=== PATIENT | female | born 1940 | race Caucasian/White ===

== ENCOUNTER 2019-10-01 09:12 | Inpatient (IN) ==
[2019-10-01] MEDS ORDERED: 0.9 % SODIUM CHLORIDE 500 ML IV ONE ×2 (10:15→12:04)
--- NOTE | 2019-10-01 10:19 | Emergency Department Note ---
Abdominal Pain HPI - General Chief Complaint: Abdominal Pain Stated Complaint: Abd pain Time Seen by Provider: 10/01/19 10:02 Source: patient, family Mode of arrival: wheelchair Limitations: no limitations - History of Present Illness HPI Narrative: 79-year-old female patient referred to the emergency department from same-day surgery for. Patient was in same-day surgery for an esophageal dilatation. During her intake she mentioned to the interface control officer that she was having worsening abdominal pain. The GI specialist went ahead with the esophageal dilatation and then referred her to the emergency department for further work- up. Upon arrival, patient complains of 4-5 days of worsening fulminant abdominal pain. She describes this as a "burning". She admits to a decreased appetite and "I have not eaten very much". She has an extensive intra-abdominal history of total colectomy associated with ulcerative colitis back in 1969. She currently has a colostomy bag. She admits to mild nausea but no vomiting. She denies systemic fevers, sweats, chills. She denies any runny nose, sinus congestion, or cough. She denies any shortness of breath. She denies any retrosternal chest pain or palpitations. She denies any dysuria or hematuria. She admits to generalized malaise. She denies focal weakness. A review of her active problem list shows small bowel obstruction in the septal scalp laceration. Patient medications were reviewed noting history of hypertension. - Related Data Home Medications Medication Instructions Recorded Confirmed Bisoprolol [Zebeta] 2.5 mg PO DAILY 10/01/19 10/01/19 Multivit with Calcium,Iron,Min 1 each PO DAILY 10/01/19 10/01/19 [One Daily Women's] Potassium 99 mg PO DAILY 10/01/19 10/01/19 amLODIPine [Norvasc] 5 mg PO DAILY 10/01/19 10/01/19 Previous Rx's Medication Instructions Recorded Magnesium Oxide 400 mg PO BID #30 tab 03/02/16 Allergies Allergy/AdvReac Type Severity Reaction Status Date / Time No Known Drug Allergies Allergy Verified 10/01/19 09:12 Review of Systems All systems ED: reviewed and negative except as stated. Abdominal Pain PMH - Past Medical History Surgical history ED: Reports: colectomy (1969) - Social History Smoking status: Never smoker Alcohol use: Reports: Occasionally Drug use: Reports: none Physical Exam Limitations: no limitations General appearance: alert, anxious, in no apparent distress (No apparent respiratory distress.), other (Patient does appear uncomfortable in the [facility] room [facility].) Head: atraumatic, normocephalic Eye: Present: PERRL, EOMI. Absent: scleral icterus ENT: Present: normal oropharynx, mucous membranes moist Neck: Present: trachea midline. Absent: lymphadenopathy, thyromegaly Chest: Present: symmetric chest wall rise Respiratory: Present: normal lung sounds bilaterally. Absent: respiratory dis tress, rales/crackles, wheezes, stridor, accessory muscle use, prolonged expiratory phase Cardiovascular: Present: regular rate, normal rhythm. Absent: systolic murmur, diastolic murmur Abdominal: Present: soft, tenderness (Globally tender throughout. Patient comes to tears with palpation around her umbilicus.), hypoactive bowel sounds, scar (Multiple surgical scars noted throughout the abdomen.), other (Colostomy bag to the left lower quadrant with dark-colored stool.). Absent: distention, guarding, rebound, rigidity, organomegaly, mass Abdominal tenderness: Present: diffuse, moderate Extremities: Present: normal inspection, full ROM, normal capillary refill. Absent: pedal edema Neurological: Present: alert, oriented X3 Psychiatric: Present: anxious, tearful Skin: Present: warm, dry Course Course Narrative: Patient was brought into the emergency department and a history and physical exam was performed. Saline lock is already been established and day surgery. Laboratory studies were drawn. Patient has questionable history of renal dysfunction so a chemistry panel was obtained prior to CT scan. CT scan of her abdomen and pelvis with contrast was ordered pending the results of her BUN/creatinine. A review of her laboratory studies show the following: CBC RBC 5.38, hemoglobin 16.1, hematocrit 47.9, WBC 8.9. CMP CO2 19, anion gap 18, BUN 105, creatinine 2.4, glucose 117, calcium 10.5, AST 48, ALT 52, all others normal limits. Lipase 87. Urinalysis showing clear yellow urine with specific gravity 1.020 and pH 5.0. Positive leukocyte Estrace, WBCs, few bacteria, and casts. C&S was indicated. /Pelvic CT scan read by the radiologist as previous surgery consistent with colectomy. No intra-abdominal abscess or focal abnormality. Radiologist did mention severe degenerative joint disease left hip. He mentions avascular necrosis is not excluded. After reviewing all the data and noting the patient's worsening kidney function. She was given 500 mL of normal saline as a bolus. Although no definitive cause for abdominal pain was found on CT scan due to her worsening renal functions and ongoing abdominal pain it seems prudent to consult with the hospitalist service about possible admission for ongoing evaluation/management. I reached out to both the patient's doctor of naturopathic medicine (Dr. Caicedo) and the hospitalist (Dr. Amaya) about the patient's need for admission. At this time it is decided the patient is likely suffering from some form of volume depletion and would benefit from IV rehydration and closely watching her renal functions. Patient is going to be admitted under the care of Dr. Amaya with Dr. Caicedo consulting. Patient remained hemodynamically stable throughout her entire time the emergency department is being discharged with the following plan. Vital Signs Temperature 96.8 F L 10/01/19 09:12 Pulse Rate 86 10/01/19 09:12 Respiratory Rate 16 10/01/19 09:12 Blood Pressure 110/70 10/01/19 09:12 Pulse Oximetry (%) 97 10/01/19 09:12 Temperature 96.8 F L 10/01/19 09:12 Pulse Rate 57 L 10/01/19 10:17 Respiratory Rate 16 10/01/19 09:12 Blood Pressure 133/59 10/01/19 11:31 Pulse Oximetry (%) 94 10/01/19 10:17 Abdominal Pain - Lab Data Lab results reviewed: Yes I reviewed the patient's lab results. Result diagrams: 10/01/19 10:36 10/01/19 10:36 Lab Results 10/01/19 10/01/19 10/01/19 Range/Units 10:36 10:36 10:36 WBC 8.9 (4.5-11.0) K/mcL RBC 5.38 H (4.00-5.20) M/mcL Hgb 16.1 H (12.0-15.0) g/dL Hct 47.9 (36.0-48.0) % POC Hct 49.0 H (36.0-48.0) % MCV 89.0 (80.0-100.0) fL MCH 29.8 (26.0-34.0) pg MCHC 33.5 (31.0-36.0) g/dL RDW 12.8 (11.5-14.5) % Plt Count 311 (140-440) K/mcL MPV 6.9 L (7.4-10.4) fL Gran % 77.5 (38.0-78.0) % Lymph % (Auto) 15.0 L (15.5-49.0) % [place] % (Auto) 6.0 (1.0-12.0) % Eos % (Auto) 0.6 (0.0-7.0) % Baso % (Auto) 0.9 (0.0-2.0) % Gran # 6.9 (1.8-8.0) K/mcL Lymph # (Auto) 1.3 L (1.5-4.8) K/mcL [place] # (Auto) 0.5 (0.1-0.9) K/mcL Eos # (Auto) 0.1 (0.0-0.7) K/mcL Baso # (Auto) 0.1 (0.0-0.3) K/mcL VBG Lactic Acid (0.5-2.0) mmol/L POC Sodium 135 (133-145) mmol/L Sodium 135 (133-145) mmol/L POC Potassium 4.2 (3.3-5.1) mmol/L Potassium 4.2 (3.3-5.1) mmol/L POC Chloride 102 (96-108) mmol/L Chloride 98 (96-108) mmol/L Carbon Dioxide 19 L (22-30) mmol/L POC Total CO2 19 L (22-30) mmol/L Anion Gap 18.0 H (8-16) POC BUN 112 H* (8-23) mg/dl BUN 105 H* (8-23) mg/dl Creatinine 2.4 H (0.6-1.1) mg/dl POC Creatinine 2.4 H (0.6-1.1) mg/dl GFR Calculation 18 Glucose 117 H (70-105) mg/dL POC Glucose 112 H (70-105) mg/dL Calcium 10.5 H (8.6-10.4) mg/dl POC WB Ioniz Calcium 1.25 (1.16-1.32) mmol/L Total Bilirubin 0.4 (0.0-1.0) mg/dL AST 48 H (0-37) U/l ALT 52 H (0-40) U/l Alkaline Phosphatase 113 (39-117) U/L Total Protein 8.1 (5.9-8.4) gm/dL Albumin 4.6 (3.2-5.2) gm/dL Globulin 3.5 (2.2-3.7) gm/dL Albumin/Globulin Ratio 1.3 (1.0-2.3) Lipase 87 H (7-60) U/L Urine Color Yellow Urine Appearance Clear Urine pH 5.0 (5.0-9.0) Ur Specific [place] 1.020 (1.000-1.035) Urine Protein Neg (NEG) mg/dL Urine Glucose (UA) Negative (NEG) mg/dL Urine Ketones Neg (NEG) mg/dL Urine Occult Blood Neg (<0.03) mg/dL Urine Nitrate Neg (NEG) Urine Bilirubin Neg (NEG) mg/dL Urine Urobilinogen Neg (NEG) mg/dL Ur Leukocyte Esterase 250 A (NEG) /uL Urine RBC 1 (0-1) /hpf Urine WBC 30 H (0-4) /hpf Ur Squamous Epith Cells 1 (0-4) /hpf Ur Transition Epith Cell 1 (0-2) /hpf Urine Bacteria Few A (0) /hpf Hyaline Casts 9 H (0-2) /lpf Urine Mucus Few (0) /hpf Ur Culture Indicated? Yes 10/01/19 Range/Units 12:25 WBC (4.5-11.0) K/mcL RBC (4.00-5.20) M/mcL Hgb (12.0-15.0) g/dL Hct (36.0-48.0) % POC Hct (36.0-48.0) % MCV (80.0-100.0) fL MCH (26.0-34.0) pg MCHC (31.0-36.0) g/dL RDW (11.5-14.5) % Plt Count (140-440) K/mcL MPV (7.4-10.4) fL Gran % (38.0-78.0) % Lymph % (Auto) (15.5-49.0) % [place] % (Auto) (1.0-12.0) % Eos % (Auto) (0.0-7.0) % Baso % (Auto) (0.0-2.0) % Gran # (1.8-8.0) K/mcL Lymph # (Auto) (1.5-4.8) K/mcL [place] # (Auto) (0.1-0.9) K/mcL Eos # (Auto) (0.0-0.7) K/mcL Baso # (Auto) (0.0-0.3) K/mcL VBG Lactic Acid 1.2 (0.5-2.0) mmol/L POC Sodium (133-145) mmol/L Sodium (133-145) mmol/L POC Potassium (3.3-5.1) mmol/L Potassium (3.3-5.1) mmol/L POC Chloride (96-108) mmol/L Chloride (96-108) mmol/L Carbon Dioxide (22-30) mmol/L POC Total CO2 (22-30) mmol/L Anion Gap (8-16) POC BUN (8-23) mg/dl BUN (8-23) mg/dl Creatinine (0.6-1.1) mg/dl POC Creatinine (0.6-1.1) mg/dl GFR Calculation Glucose (70-105) mg/dL POC Glucose (70-105) mg/dL Calcium (8.6-10.4) mg/dl POC WB Ioniz Calcium (1.16-1.32) mmol/L Total Bilirubin (0.0-1.0) mg/dL AST (0-37) U/l ALT (0-40) U/l Alkaline Phosphatase (39-117) U/L Total Protein (5.9-8.4) gm/dL Albumin (3.2-5.2) gm/dL Globulin (2.2-3.7) gm/dL Albumin/Globulin Ratio (1.0-2.3) Lipase (7-60) U/L Urine Color Urine Appearance Urine pH (5.0-9.0) Ur Specific [place] (1.000-1.035) Urine Protein (NEG) mg/dL Urine Glucose (UA) (NEG) mg/dL Urine Ketones (NEG) mg/dL Urine Occult Blood (<0.03) mg/dL Urine Nitrate (NEG) Urine Bilirubin (NEG) mg/dL Urine Urobilinogen (NEG) mg/dL Ur Leukocyte Esterase (NEG) /uL Urine RBC (0-1) /hpf Urine WBC (0-4) /hpf Ur Squamous Epith Cells (0-4) /hpf Ur Transition Epith Cell (0-2) /hpf Urine Bacteria (0) /hpf Hyaline Casts (0-2) /lpf Urine Mucus (0) /hpf Ur Culture Indicated? - Radiology Data Radiology results reviewed: Yes I reviewed the patient's radiology results. Ordering Physician: Nasim Hanna D.O. Date of Service: 10/01/19 Procedure(s): CT abdomen pelvis wo con Accession Number(s): [id number] CLINICAL INFORMATION: Abdominal pain COMPARISON: None. TECHNIQUE: Axial images were obtained through the abdomen and pelvis. Sagittally and coronally reformatted images. Oral contrast material was administered FINDINGS: Lung bases:Negative. No focal pulmonary parenchymal infiltrate or mass. There is no bronchiectasis. There is no pleural fluid or pericardial fluid Liver:Liver is negative to the limits of noncontrast enhanced examination. Liver contour is smooth. There is no ascites. Gallbladder, billary:Surgical clips in the gallbladder fossa. No dilated bile ducts Spleen:No splenomegaly Pancreas:No pancreatic mass. No peripancreatic abnormality Adrenal glands:Negative Kidneys, ureters, bladder:No detectable renal mass. Kidneys are atrophic bilaterally. There is no hydronephrosis. No calculi. No hydroureter. No bladder stone. Gastrointestinal:Findings are consistent with previous colectomy. 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 There is a left lower quadrant ostomy. No mechanical small bowel obstruction. Vascular:No abdominal aortic aneurysm. There is mild atherosclerotic calcification Lymphatic:No para-aortic retroperitoneal adenopathy. No mesenteric adenopathy Mesentery, peritoneum, retroperitoneum:There are multiple surgical clips from previous colectomy. No free intraperitoneal fluid. No intra-abdominal abscess. There is no pneumoperitoneum Reproductive:Uterus is probably present and atrophic although not well visualized. No adnexal mass Musculoskeletal:No lumbar compression fracture. Sacrum and pelvis are negative. Previous right total hip arthroplasty. There is degenerative disease left hip. There is marked joint space narrowing. There is sclerosis in the left femoral head. This is probably a subchondral sclerotic and cystic change. Avascular necrosis is not excluded. IMPRESSION: 1. Previous surgery consistent with colectomy 2. No intra-abdominal abscess. No focal abnormality 3. Severe degenerative joint disease and left hip. Avascular necrosis is not excluded Interpreted and Authenticated by: Chidi Mcgregor 10/01/19 Disposition Pt seen by [employer] HOCKEY COACH/PA only: Yes Clinical Impression: Abdominal pain Qualifiers: Abdominal location: generalized Qualified Code(s): R10.84 - Generalized abdominal pain Acute on chronic renal failure Qualifiers: Acute renal failure type: unspecified Chronic kidney disease stage: stage 4 (severe) Qualified Code(s): N17.9 - Acute kidney failure, unspecified; N18.4 - Chronic kidney disease, stage 4 (severe) Disposition: Xfer As Outpt/Obs ([facility]) Condition: Good Additional Instructions: Patient is being admitted to the hospital under the care of the hospitalist (Dr. Amaya) with the doctor of naturopathic medicine (Dr. Caicedo) consulting. All further treatment decisions to be carried out by the specialist. Referrals: Opal Martin MD [Primary Care Provider] - Time of Disposition: 13:38
[2019-10-01 10:47] LABS: POC Blood Urea Nitrogen 112 mg/dl (8-23); POC CO2 19 mmol/L (22-30); POC Calcium, Ionized 1.25 mmol/L (1.16-1.32); POC Chloride 102 mmol/L (96-108); POC Creatinine 2.4 mg/dl (0.6-1.1); POC Glucose, Random 112 mg/dL (70-105); POC Potassium 4.2 mmol/L (3.3-5.1); POC Sodium 135 mmol/L (133-145)
[2019-10-01 11:09] LABS: Basophils # (Auto) 0.1 K/mcL (0.0-0.3); Basophils % (Auto) 0.9 % (0.0-2.0); Eosinophils # (Auto) 0.1 K/mcL (0.0-0.7); Eosinophils % (Auto) 0.6 % (0.0-7.0); Granulocytes % (Auto) 77.5 % (38.0-78.0); Hematocrit 47.9 % (36.0-48.0); Hemoglobin 16.1 g/dL (12.0-15.0); Lymphocytes # (Auto) 1.3 K/mcL (1.5-4.8); Mean Corpuscular HGB Conc 33.5 g/dL (31.0-36.0); Mean Platelet Volume 6.9 fL (7.4-10.4); Monocytes # (Auto) 0.5 K/mcL (0.1-0.9); Platelet Count 311 K/mcL (140-440); RBC 5.38 M/mcL (4.00-5.20); Red Cell Distribution Width 12.8 % (11.5-14.5); WBC 8.9 K/mcL (4.5-11.0)
[2019-10-01 11:20] LABS: Appearance,Urine CLEAR; Bacteria,Urine FEW /hpf (0); Bilirubin,Urine NEG (NEG); Color,Urine YELLOW; Culture Indicated,Urine YES; Glucose,Urine (UA) NEGATIVE (NEG); Ketones,Urine NEG (NEG); Leukocyte Esterase,Urine 250 /uL (NEG); Mucus,Urine FEW /hpf (0); Nitrate,Urine NEG (NEG); Protein,Urine NEG (NEG); Urine Blood NEG mg/dL (<0.03); Urine Hyaline Cast 9 /lpf (0-2); Urine RBC 1 /hpf (0-1); Urine Squamous Epithelial Cell 1 /hpf (0-4); Urine Transitional Epi Cells 1 /hpf (0-2); Urine WBC 30 /hpf (0-4); Urobilinogen,Urine NEG (NEG)
[2019-10-01 11:28] LABS: ALT/SGPT 52 U/l (0-40); AST/SGOT 48 U/l (0-37); Albumin 4.6 gm/dL (3.2-5.2); Albumin/Globulin Ratio 1.3 (1.0-2.3); Alkaline Phosphatase 113 U/L (39-117); Bilirubin,Total 0.4 mg/dL (0.0-1.0); Calcium 10.5 mg/dl (8.6-10.4); Carbon Dioxide 19 mmol/L (22-30); Chloride 98 mmol/L (96-108); Globulin 3.5 gm/dL (2.2-3.7); Glomerular Filtration Rate 18; Glucose 117 mg/dL (70-105)
[2019-10-01 11:43] LABS: Blood Urea Nitrogen 105 mg/dl (8-23)
--- NOTE | 2019-10-01 12:09 | Cat Scan Report ---
CLINICAL INFORMATION: Abdominal pain COMPARISON: None. TECHNIQUE: Axial images were obtained through the abdomen and pelvis. Sagittally and coronally reformatted images. Oral contrast material was administered FINDINGS: Lung bases:Negative. No focal pulmonary parenchymal infiltrate or mass. There is no bronchiectasis. There is no pleural fluid or pericardial fluid Liver:Liver is negative to the limits of noncontrast enhanced examination. Liver contour is smooth. There is no ascites. Gallbladder, billary:Surgical clips in the gallbladder fossa. No dilated bile ducts Spleen:No splenomegaly Pancreas:No pancreatic mass. No peripancreatic abnormality Adrenal glands:Negative Kidneys, ureters, bladder:No detectable renal mass. Kidneys are atrophic bilaterally. There is no hydronephrosis. No calculi. No hydroureter. No bladder stone. Gastrointestinal:Findings are consistent with previous colectomy. 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 There is a left lower quadrant ostomy. No mechanical small bowel obstruction. Vascular:No abdominal aortic aneurysm. There is mild atherosclerotic calcification Lymphatic:No para-aortic retroperitoneal adenopathy. No mesenteric adenopathy Mesentery, peritoneum, retroperitoneum:There are multiple surgical clips from previous colectomy. No free intraperitoneal fluid. No intra-abdominal abscess. There is no pneumoperitoneum Reproductive:Uterus is probably present and atrophic although not well visualized. No adnexal mass Musculoskeletal:No lumbar compression fracture. Sacrum and pelvis are negative. Previous right total hip arthroplasty. There is degenerative disease left hip. There is marked joint space narrowing. There is sclerosis in the left femoral head. This is probably a subchondral sclerotic and cystic change. Avascular necrosis is not excluded. IMPRESSION: 1. Previous surgery consistent with colectomy 2. No intra-abdominal abscess. No focal abnormality 3. Severe degenerative joint disease and left hip. Avascular necrosis is not excluded The exam was performed using radiation dose optimization techniques including, but not limited to, automated exposure control, adjustment of the mA and/or kV according to patient size and use of iterative reconstruction technique. Interpreted and Authenticated by: Chidi Mcgregor 10/01/19
--- NOTE | 2019-10-01 13:39 | Internal Med History&Physical ---
Medical - H&P: [facility] Patient information: Note initiated : 10/01/19 at 1:37 pm Service Date, if different from initiated Date: [] Patient: Lesvia Eduardo a 79 y/o F admitted on for Abd pain. Chief Complaint: [] Chief complaint: Weakness/abdominal discomfort History of present illness: Ms. Eduardo is a 79 year old F with history of prior abdominal surgery/colostomy since . She was referred to the ER after esophageal dilatation today due to concerns of abdominal discomfort and pain. As per history patient has had progressive weakness secondary to upper respiratory symptoms over the last 1 week. She is having dysphagia to solids especially meats and subsequently underwent upper endoscopy today. Postprocedure she was noted to have increasing abdominal discomfort. Initial work-up in the ER was essentially unremarkable with a CT abdomen however she was found to have a BUN of over 112 and creatinine 2.4 up 50% from baseline. Her furnace setter Dr. Caicedo was consulted and recomm ended hospitalization for further evaluation and management. Significant hemoconcentration was noted with a hemoglobin of 16.1, and UA revealing 30 WBCs. Subsequently hospitalist service was consulted. At the time evaluation patient is alert and oriented. She was able to endorse history as above. She is hard of hearing and uses a hearing aid. She denies NSAID intake. She is fairly independent and active at baseline and lives with her Jeronimo. She denies recent weight loss but endorses to cough and cold symptoms for a week and a half. She denies fever chills diarrhea, dysuria, nausea, vomiting or changes in medications. She also saw her primary care physician Opal Francisco last week with URI symptoms. She is currently not on any diuretics. She does endorse that she has not been eating and drinking much due to upper respiratory symptoms Review of systems A 10 point review system was performed and is negative except for ones cussed above Medical - H&P: [facility] Medical history: Neuropathy. Chronic kidney disease stage IV managed by Dr. Caicedo, Special Population Paraprofessional. History of nephrolithiasis. Pernicious anemia. Osteoporosis. SURGICAL HISTORY: Hysterectomy. Hernia and ovarian cyst in 1988. Ostomy in 1979. Fistula requiring ostomy 1992. Gallbladder surgery 2005. FAMILY HISTORY: brother with multiple sclerosis. SOCIAL HISTORY: to [place]. 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 Occasional alcohol, no history of tobacco or substance abuse. Medical - H&P: Meds Home Medications Medication Instructions Recorded Confirmed Type Bisoprolol [Zebeta] 5 mg PO DAILY 10/01/19 10/01/19 History Fludrocortisone [Florinef] 0.1 mg PO DAILY 10/01/19 10/01/19 History Magnesium Oxide 800 mg PO BID 10/01/19 10/01/19 History Multivit with Calcium,Iron,Min 1 each PO DAILY 10/01/19 10/01/19 History [One Daily Women's] Potassium 99 mg PO DAILY 10/01/19 10/01/19 History amLODIPine [Norvasc] 5 mg PO DAILY 10/01/19 10/01/19 History Allergies Allergy/AdvReac Type Severity Reaction Status Date / Time No Known Drug Allergies Allergy Verified 10/01/19 09:12 Medical - H&P: Exam - Constitutional Vitals: Temp Pulse Resp BP Pulse Ox 96.8 F L 57 L 16 133/59 94 10/01/19 09:12 10/01/19 10:17 10/01/19 09:12 10/01/19 11:31 10/01/19 10:17 Medical - H&P: Reslt - Labs CBC & Chem 7: 10/01/19 10:36 10/01/19 10:36 Labs: Short CBC 10/01/19 Range/Units 10:36 WBC 8.9 (4.5-11.0) K/mcL Hgb 16.1 H (12.0-15.0) g/dL Hct 47.9 (36.0-48.0) % Plt Count 311 (140-440) K/mcL BMP 10/01/19 10:36 Sodium 135 Potassium 4.2 Chloride 98 Carbon Dioxide 19 L BUN 105 H* Creatinine 2.4 H Glucose 117 H Calcium 10.5 H Liver Function 10/01/19 Range/Units 10:36 Total Bilirubin 0.4 (0.0-1.0) mg/dL AST 48 H (0-37) U/l ALT 52 H (0-40) U/l Alkaline Phosphatase 113 (39-117) U/L Albumin 4.6 (3.2-5.2) gm/dL Urine 10/01/19 Range/Units 10:36 Urine Color Yellow Urine Appearance Clear Urine pH 5.0 (5.0-9.0) Ur Specific [address] 1.020 (1.000-1.035) Urine Protein Neg (NEG) mg/dL Urine Glucose (UA) Negative (NEG) mg/dL Medical - H&P: A/P (1) Uremia of renal origin Current visit: Yes Status: Acute * Uremia secondary to volume depletion with a BUN of 110. Nephrology consulted * Progression of chronic kidney disease. Baseline creatinine 1.6 current creatinine 2.4. Likely secondary to volume depletion. Nephrology consulted * Uncomplicated UTI-initiate antibiotic coverage. Negative abdominal CT for pyelonephritis or obstructive uropathy. * Volume depletion secondary to poor p.o. intake continue crystalloids. * Hemoconcentration secondary to volume depletion. Continue crystalloids * History of hypertension continue home dose amlodipine/bisoprolol * Full code * Prophylaxis heparin Plan * Inpatient admission, anticipate a minimum of 2 midnight hospitalization in the second dose uremia/NILA/UTI * Uremia and acute kidney injury management per nephrology * Aggressive volume resuscitation * Colostomy care * Resume home medications * PT OT nutrition support
[2019-10-01] MEDS ORDERED: MELATONIN 3 MG TABLET PO PRN (15:06)
[2019-10-01] MEDS ORDERED: ONDANSETRON 4 MG/2 ML VIAL IV PRN (15:06)
[2019-10-01] MEDS ORDERED: BISACODYL 10 MG SUPP.RECT PR PRN (15:06)
[2019-10-01] MEDS ORDERED: ACETAMINOPHEN 325 MG TABLET PO PRN (15:06)
[2019-10-01] MEDS ORDERED: POLYETHYLENE GLYCOL 3350 17 GM PACKET PO PRN (15:06)
[2019-10-01] MEDS ORDERED: ONDANSETRON 4 MG ODT TABLET SL PRN (15:06)
[2019-10-01] MEDS ORDERED: ACETAMINOPHEN 650 MG/65 ML BOTTLE IV PRN (15:06)
[2019-10-01] MEDS: 0.9 % SODIUM CHLORIDE 1,000 ML IV SCH (15:08)
[2019-10-01] MEDS: 0.9 % SODIUM CHLORIDE 10 ML SYRINGE IV SCH ×2 (15:13→20:56)
[2019-10-01] MEDS: FLUDROCORTISONE 0.1 MG TABLET PO SCH (20:55)
[2019-10-01] MEDS: HEPARIN 5,000 UNIT/ML VIAL SQ SCH (20:55)
[2019-10-01] MEDS: MAGNESIUM OXIDE 400 MG TABLET PO SCH (20:55)
[2019-10-01] MEDS: DOCUSATE SODIUM 100 MG CAPSULE PO SCH (20:56)
[2019-10-01] MEDS ORDERED: SENNOSIDES/DOCUSATE SODIUM 1 TAB TABLET PO SCH (21:00)
[2019-10-02] MEDS: 0.9 % SODIUM CHLORIDE 1,000 ML IV SCH ×2 (00:46→11:58)
[2019-10-02] MEDS: 0.9 % SODIUM CHLORIDE 10 ML SYRINGE IV SCH ×2 (05:23→12:50)
[2019-10-02 06:31] LABS: Hematocrit 39.3 % (36.0-48.0); Mean Cell Volume 89.2 fL (80.0-100.0); Mean Corpuscular HGB Conc 33.2 g/dL (31.0-36.0); Mean Platelet Volume 6.9 fL (7.4-10.4); Platelet Count 241 K/mcL (140-440); Red Cell Distribution Width 12.4 % (11.5-14.5); WBC 5.3 K/mcL (4.5-11.0)
[2019-10-02 06:58] LABS: ALT/SGPT 35 U/l (0-40); AST/SGOT 34 U/l (0-37); Albumin 3.2 gm/dL (3.2-5.2); Albumin/Globulin Ratio 1.1 (1.0-2.3); Alkaline Phosphatase 84 U/L (39-117); Bilirubin,Direct < 0.2 mg/dL (0.0-0.3); Bilirubin,Total 0.5 mg/dL (0.0-1.0); Calcium 9.3 mg/dl (8.6-10.4); Carbon Dioxide 18 mmol/L (22-30); Chloride 100 mmol/L (96-108); Globulin 2.8 gm/dL (2.2-3.7); Glucose 91 mg/dL (70-105); Lactate Dehydrogenase 225 U/L (94-250); Phosphorous 4.2 mg/dL (2.7-4.5); Triglycerides 89 mg/dl (<150); Uric Acid 9.1 mg/dL (2.5-8.0)
[2019-10-02 07:25] LABS: Blood Urea Nitrogen 81 mg/dl (8-23); Glomerular Filtration Rate 30
[2019-10-02 07:45] LABS: Eosinophils % (Manual) 4 % (0-7); Lymphocytes % 25 % (15-49); Monocytes % (Manual) 13 % (1-12); Platelet Estimate NORMAL (NORMAL); RBC Morphology NORMAL (NORMAL); Segmented Neutrophils % 58 % (38-78)
--- NOTE | 2019-10-02 07:51 | Internal Med Progress Note ---
Medical - PN: Subj Patient information: Note initiated : 10/02/19 at 7:47 am Service Date, if different from initiated Date: [] Patient: Lesvia Eduardo a 79 y/o F admitted on 10/01/19 for Abd pain. Chief Complaint: [] Interval history: Ms. Eduardo is a 79 year old F with history of prior abdominal surgery/colostomy since . She was referred to the ER after esophageal dilatation today due to concerns of abdominal discomfort and pain. As per history patient has had progressive weakness secondary to upper respiratory symptoms over the last 1 week. She is having dysphagia to solids especially meats and subsequently underwent upper endoscopy today. Postprocedure she was noted to have increasing abdominal discomfort. Initial work-up in the ER was essentially unremarkable with a CT abdomen however she was found to have a BUN of over 112 and creatinine 2.4 up 50% from baseline. Her editorial assistant Dr. Caicedo was consulted and recommended hospitalization for further evaluation and management. Significant hemoconcentration was noted with a hemoglobin of 16.1, and UA revealing 30 WBCs. Subsequently hospitalist service was consulted. At the time evaluation patient is alert and oriented. She was able to endorse history as above. She is hard of hearing and uses a hearing aid. She denies NSAID intake. She is fairly independent and active at baseline and lives with her Jeronimo. She denies recent weight loss but endorses to cough and cold symptoms for a week and a half. She denies fever chills diarrhea, dysuria, nausea, vomiting or changes in medications. She also saw her primary care physician Opal Francisco last week with URI symptoms. She is currently not on any diuretics. She does endorse that she has not been eating and drinking much due to upper respiratory symptoms 10/02-much improved uremia/NILA with BUN down to 81 from 112 and creatinine down to 1.6 from 2.4. Feels stronger. Had a restful night. Able to tolerate solids post esophageal dilatation. No other concerns expressed to nursing staff. Hard of hearing. Continue aggressive PT OT/ambulation. Anticipate discharge in 24 hours with advised to continue adequate hydration. On antibiotic coverage for cystitis. - Constitutional Vitals: Vital Signs Temp Pulse Resp BP Pulse Ox 98.0 F 72 16 130/66 95 10/02/19 07:37 10/02/19 07:37 10/02/19 07:37 10/02/19 07:37 10/02/19 07:37 Period Temp Pulse Resp BP Sys/Fernandez Pulse Ox Last 24 Hr 96.8 F-98.0 F 57-86 16-16 107-147/52-79 94-100 Intake and Output 10/01/19 10/02/19 10/02/19 21:59 05:59 13:59 Intake Total 1463 Output Total 1150 1075 175 Balance -1150 388 -175 Weight 120 lb Intake & Output: Intake & Output 10/01/19 10/02/19 10/02/19 21:59 05:59 13:59 Intake Total 1463 Output Total 1150 1075 175 Balance -1150 388 -175 Weight 120 lb Intake: IV 963 Sodium Chloride 0.9% 1,000 ml @ 963 100 mls/hr IV .Q10H [facility] Rx#: [id number] Oral 500 Output: Void Amount 400 500 175 Stool 750 575 Other: Urine Appearance Clear Clear Clear Urine Color Bright Yellow Bright Yellow Bright Yellow Urine Odor Normal Stool Size Large Moderate Stool Color Green Green Stool Consistency Liquid Liquid Watery Watery General appearance: no acute distress Exam: Alert oriented Nonlabored breathing Hard of hearing No anxiety Nondistended abdomen Medical - PN: Obj Da - Labs CBC & Chem 7: 10/02/19 04:15 10/02/19 04:15 Labs: Abnormal Lab Results 10/02/19 10/02/19 10/01/19 04:15 04:15 10:36 RBC Hgb POC Hct MPV 6.9 L Lymph % (Auto) Lymph # (Auto) Monocytes % (Manual) 13 H Carbon Dioxide 18 L POC Total CO2 Anion Gap POC BUN BUN 81 H Creatinine 1.6 H POC Creatinine Glucose POC Glucose Uric Acid 9.1 H Calcium Magnesium 1.5 L GGT 63 H AST ALT Lipase Ur Leukocyte Esterase 250 A Urine WBC 30 H Urine Bacteria Few A Hyaline Casts 9 H 10/01/19 10/01/19 10:36 10:36 RBC 5.38 H Hgb 16.1 H POC Hct 49.0 H MPV 6.9 L Lymph % (Auto) 15.0 L Lymph # (Auto) 1.3 L Monocytes % (Manual) Carbon Dioxide 19 L POC Total CO2 19 L Anion Gap 18.0 H POC BUN 112 H* BUN 105 H* Creatinine 2.4 H POC Creatinine 2.4 H Glucose 117 H POC Glucose 112 H Uric Acid Calcium 10.5 H Magnesium GGT AST 48 H ALT 52 H Lipase 87 H Ur Leukocyte Esterase Urine WBC Urine Bacteria Hyaline Casts Meds: Medications Acetaminophen (Tylenol) 650 mg PO Q4-6HP PRN; Protocol PRN Reason: Per Pain Protocol/Fever > 101 Amlodipine Besylate (Norvasc) 5 mg PO DAILY [facility] Bisacodyl (Dulcolax) 10 mg [place] Q2-3DAYS PRN PRN Reason: Constipation Bisoprolol Fumarate (Zebeta) 5 mg PO DAILY [facility] Docusate Sodium (Colace) 100 mg PO BID [facility] Last Admin: 10/01/19 20:56 Dose: Not Given Documented by: Fludrocortisone Acetate (Florinef) 0.1 mg PO BID [facility] Last Admin: 10/01/19 20:55 Dose: 0.1 mg Documented by: Heparin Sodium (Porcine) (Heparin) 5,000 unit SQ Q12 [facility] Last Admin: 10/01/19 20:55 Dose: 5,000 unit Documented by: Sodium Chloride (Sodium Chloride 0.9%) 1,000 mls @ 100 mls/hr IV .Q10H [facility] Last Admin: 10/02/19 00:46 Dose: 100 mls/hr Documented by: Acetaminophen (Ofirmev) 650 mg in 65 mls @ 130 mls/hr IV Q6HP PRN; Protocol PRN Reason: Per Pain Protocol/Fever > 101 Iron Carb/Multivit/Bucks/Folic Acid (Multivitamin W/Minerals) 1 tab PO DAILY [facility] Magnesium Oxide (Magnesium Oxide) 400 mg PO BID [facility] Last Admin: 10/01/19 20:55 Dose: 400 mg Documented by: Melatonin (Melatonin 3mg Tablet) 3 mg PO HSP PRN PRN Reason: Insomnia Ondansetron HCl (Zofran Odt) 4 mg SL Q4-6HP PRN; Protocol PRN Reason: Nausea And Vomiting Ondansetron HCl (Zofran) 4 mg IV Q4-6HP PRN; Protocol PRN Reason: Nausea And Vomiting Potassium 99 Mg 1 dose PO DAILY [facility] Polyethylene Glycol (Miralax) 17 gm PO DAILYP PRN PRN Reason: Constipation Senna/Docusate Sodium (Senna Plus Tablet) 1 tab PO HS [facility] Last Admin: 10/01/19 20:56 Dose: Not Given Documented by: Sodium Chloride (Saline Flush) 10 ml IV Q8 [facility] Last Admin: 10/02/19 05:23 Dose: Not Given Documented by: Medical - PN: A/P - Time Spent With Patient Total time spent is greater than 50% in coordination of care (as documented) at patient's floor/unit and/or counseling patient: 25 - 35 minutes (1) Uremia of renal origin Status: Acute Assessment and plan: * Uremia secondary to volume depletion with a BUN of 112-secondary to volume depletion improved with crystalloids. BUN 81/creatinine down to 1.6 * Progression of chronic kidney disease. Creatinine down from 2.4 to baseline 1.6. Continue crystalloids. Likely secondary to volume depletion likely secondary to volume depletion. * Uncomplicated cystitis-continue antibiotic coverage for additional 24 hours. Abdominal imaging for pyelonephritis or obstructive uropathy. * Volume depletion secondary to poor p.o. intake -encourage p.o. fluids. * Hemoconcentration secondary to volume depletion. Resolved with crystalloids * History of hypertension on home dose amlodipine/bisoprolol * Full code * Prophylaxis heparin Plan * Continue crystalloids and encourage p.o. intake * Continue monitor renal function * Colostomy care * Continue pre-existing medical condition management on home meds * PT OT nutrition support Current Visit: Yes Medical - PN: Qual - VTE Deep Vein Thrombosis/Pulmonary Embolism Present on Admission: No
[2019-10-02] MEDS: DOCUSATE SODIUM 100 MG CAPSULE PO SCH (08:36)
[2019-10-02] MEDS: MAGNESIUM OXIDE 400 MG TABLET PO SCH (08:36)
[2019-10-02] MEDS: HEPARIN 5,000 UNIT/ML VIAL SQ SCH (08:36)
[2019-10-02] MEDS ORDERED: amLODIPine 5 MG TABLET PO SCH (09:00)
[2019-10-02] MEDS ORDERED: [UNRECOGNIZED DRUG - OTHER] PO SCH (09:00)
[2019-10-02] MEDS ORDERED: MULTIVIT WITH CALCIUM IRON MIN PO SCH (09:00)
[2019-10-02] MEDS ORDERED: MULTIVIT,THER IRON,CA,FA & MIN 1 TABLET PO SCH (09:00)
[2019-10-02] MEDS ORDERED: BISOPROLOL 5 MG TABLET PO SCH (09:00)
[2019-10-02] MEDS: FLUDROCORTISONE 0.1 MG TABLET PO SCH (12:49)
[2019-10-02 16:02] LABS: Glomerular Filtration Rate 32
[2019-10-02] MEDS ORDERED: MAGNESIUM OXIDE 400 MG TABLET PO ONE (16:21)
--- NOTE | 2019-10-02 19:39 | Discharge Summary ---
Medical - DS: Prov Patient information: Note initiated : 10/02/19 at 7:39 pm Service Date, if different from initiated Date: [] Patient: Lesvia Eduardo 79 y/o F admitted on 10/01/19 for Abd pain. Chief Complaint: [] Date of admission: 10/01/19 14:43 Discharge date: 10/02/19 Primary care physician: Opal Martin Consults: 10/01/19 Consult to Physician [CONS] Stat Comment: Consulting Provider: Alvaro Lee Reason For Exam: Physician to Consult 10/01/19 15:06 Consult to Physician [CONS] Routine Comment: Consulting Provider: Loki Caicedo Reason For Exam: Physician to Consult Medical - DS: Meds - Discharge Medications Active and Home Medications: Home Medications Bisoprolol [Zebeta] 5 mg PO DAILY 10/01/19 [History Confirmed 10/01/19 Last Chet en 10/01/19 06:00] Fludrocortisone [Florinef] 0.1 mg PO BID 10/01/19 [History Confirmed 10/01/19 Last Taken Unknown] Magnesium Oxide 400 mg PO BID 10/01/19 [History Confirmed 10/01/19 Last Taken Unknown] Multivit with Calcium,Iron,Min [One Daily Women's] 1 each PO DAILY 10/01/19 [History Confirmed 10/01/19 Last Taken 10/01/19 06:00] Potassium 99 mg PO DAILY 10/01/19 [History Confirmed 10/01/19 Last Taken 10/01/19 06:00] amLODIPine [Norvasc] 5 mg PO DAILY 10/01/19 [History Confirmed 10/01/19 Last Taken 10/01/19 06:00] Medical - DS: Hosp Hospital Course: Ms. Eduardo is a 79 year old F with history of prior abdominal surgery/colostomy since . She was referred to the ER after esophageal dilatation today due to concerns of abdominal discomfort and pain. As per history patient has had progressive weakness secondary to upper respiratory symptoms over the last 1 week. She is having dysphagia to solids especially meats and subsequently underwent upper endoscopy today. Postprocedure she was noted to have increasing abdominal discomfort. Initial work-up in the ER was essentially unremarkable with a CT abdomen however she was found to have a BUN of over 112 and creatinine 2.4 up 50% from baseline. Her metallic yarn slitting machine operator Dr. Caicedo was consulted and recommended hospitalization for further evaluation and management. Significant hemoconcentration was noted with a hemoglobin of 16.1, and UA revealing 30 WBCs. Subsequently hospitalist service was consulted. At the time evaluation patient is alert and oriented. She was able to endorse history as above. She is hard of hearing and uses a hearing aid. She denies NSAID intake. She is fairly independent and active at baseline and lives with her Jeronimo. She denies recent weight loss but endorses to cough and cold symptoms for a week and a half. She denies fever chills diarrhea, dysuria, nausea, vomiting or changes in medications. She also saw her primary care physician Opal Francisco last week with URI symptoms. She is currently not on any diuretics. She does endorse that she has not been eating and drinking much due to upper respiratory symptoms 10/02-much improved uremia/NILA with BUN down to 81 from 112 and creatinine down to 1.6 from 2.4. Feels stronger. Had a restful night. Able to tolerate solids post esophageal dilatation. No other concerns expressed to nursing staff. Hard of hearing. Continue aggressive PT OT/ambulation. Anticipate discharge in 24 hours with advised to continue adequate hydration. On antibiotic coverage for cystitis. Uremia secondary to volume depletion with a BUN of 112-secondary to volume depletion improved with crystalloids. BUN 81/creatinine down to 1.6 Progression of chronic kidney disease. Creatinine down from 2.4 to baseline 1.6. Continue crystalloids. Likely secondary to volume depletion likely secondary to volume depletion. Uncomplicated cystitis-continue antibiotic coverage for additional 24 hours. Abdominal imaging for pyelonephritis or obstructive uropathy. Volume depletion secondary to poor p.o. intake -encourage p.o. fluids. Hemoconcentration secondary to volume depletion. Resolved with crystalloids History of hypertension on home dose amlodipine/bisoprolol Full code Prophylaxis heparin Plan Continue crystalloids and encourage p.o. intake Continue monitor renal function Colostomy care Continue pre-existing medical condition management on home meds PT OT nutrition support Discharge diagnosis: Acute renal failure - Time Spent with Patient Total time spent providing and/or coordinating discharge services: Greater than 30 minutes Medical - DS: Exam - Constitutional Vitals: Vital Signs Temp Pulse Resp BP BP Pulse Ox 10/02/19 18:40 97.5 F 73 16 131/76 97 10/02/19 15:47 97.8 F 68 20 128/74 98 10/02/19 11:32 97.8 F 69 20 122/65 98 10/02/19 08:00 72 10/02/19 07:37 98.0 F 72 16 130/66 95 10/01/19 23:24 97.8 F 70 16 140/68 96 Intake and Output 10/02/19 10/02/19 10/02/19 05:59 13:59 21:59 Intake Total 1463 1720 400 Output Total 1075 1375 900 Balance 388 345 -500 Intake: IV 963 1000 Sodium Chloride 0.9% 1,000 ml @ 963 1000 100 mls/hr IV .Q10H [facility] Rx#: [id number] Oral 500 720 400 Output: Void Amount 500 525 300 Stool 575 850 600 Other: Meal Lunch Dinner Percent of Meal Consumed 75% Feeding Ability Independent Independent Urine Appearance Clear Clear Clear Urine Color Bright Yellow Dark Yellow Dark Yellow Urine Odor Normal Normal Stool Size Moderate Stool Color Green Green Marshall Stool Consistency Liquid Watery General appearance: average body habitus, cooperative, no moderate distress - Head Head exam: Present: normal inspection - ENT ENT exam: Present: mucous membranes moist, normal exam - Respiratory Respiratory exam: Present: normal respiratory exam. Absent: accessory muscle use, chest wall tenderness, stridor, wheezes - Cardiovascular Cardiovascular exam: Present: normal rate and rhythm. Absent: irregular rhythm, JVD, RRR - GI/Abdominal GI/Abdominal exam: Present: soft. Absent: distended - Extremities Exam Extremities exam: Absent: joint swelling, pedal edema, tenderness - Neurological Exam Neurological exam: Present: alert, oriented X3. Absent: CN II-XII intact, motor sensory deficit - Psychiatric Psychiatric exam: Present: anxious. Absent: agitated Medical - DS: Data Labs on day of discharge: Labs from last 24 hours 10/02/19 10/02/19 10/02/19 14:54 04:15 04:15 WBC 5.3 RBC 4.40 Hgb 13.0 Hct 39.3 MCV 89.2 MCH 29.6 MCHC 33.2 RDW 12.4 Plt Count 241 MPV 6.9 L Total Counted 100 Seg Neutrophils % 58 Band Neutrophils % Not Reportable Lymphocytes % 25 Monocytes % (Manual) 13 H Eosinophils % (Manual) 4 Platelet Estimate Normal RBC Morphology Normal Sodium 134 Potassium 3.5 Chloride 100 Carbon Dioxide 18 L Anion Gap 16.0 BUN 81 H Creatinine 1.5 H 1.6 H GFR Calculation 32 30 Glucose 91 Uric Acid 9.1 H Calcium 9.3 Phosphorus 4.2 Magnesium 1.5 L 1.5 L Total Bilirubin 0.5 Direct Bilirubin < 0.2 GGT 63 H AST 34 ALT 35 Alkaline Phosphatase 84 Lactate Dehydrogenase 225 Total Protein 6.0 Albumin 3.2 Globulin 2.8 Albumin/Globulin Ratio 1.1 Triglycerides 89 Medical - DS: A/P - Patient/Caregiver Discharge Instructions Activity: increase activity as tolerated Diet: Regular Diet Additional Instructions: Resume home renal diet as tolerated. Ensure adequate water intake. Increase activity as tolerated. Continue home meds as prescribed. Follow up with Opal Martin. Contact the office on Thursday 10/04 to schedule. [phone] Follow up with Loki Caicedo. Contact the office on Thursday 10/04 to schedule.[phone] Return to ER for fever, chills, dizziness, nausea and/or vomiting, unable to go to the bathroom, chest pain, shortness of breath, or other acute symptom. - Follow up Plan Follow up with: Loki Caicedo MD [Physician] - Opal Martin MD [Primary Care Provider] - Disposition: Home, Self-Care Care Plan Goals: This discharge packet is provided to you to help keep you informed about your care. We want to ensure you get everything you need when you go home. You will also be receiving a call from us in a few days to follow up with you and see how you are doing since your discharge. This gives us a chance to listen to any concerns you maybe experiencing since you were discharged or any additional needs you may have, as well as providing us feedback on your care experience. We strive to always provide excellent care and thank you for your feedback and for choosing [facility]. Prognosis: Fair Rehab Potential: Fair I certify that the patient requires SNF services: No Overall status at discharge: patient is progressing back to baseline Medical - DS: Qual - VTE Deep Vein Thrombosis/Pulmonary Embolism Present on Admission: No
== END 2019-10-02 18:50 | disposition home or self-care (01) | DRG 684 ==
LOC: ED 09:12 → MEDSUR 14:42
PROVIDERS: ADMIT Internal Medicine; ATTEND Internal Medicine

== ENCOUNTER 2020-01-13 12:56 | Inpatient (IN) ==
[2020-01-13] MEDS ORDERED: KETOROLAC 30 MG/ML VIAL IV ONE (13:30)
[2020-01-13] MEDS ORDERED: ONDANSETRON 4 MG/2 ML VIAL IV ONE (13:30)
[2020-01-13] MEDS ORDERED: HYDROmorphone 2 MG/ML VIAL IV PRN (13:30)
[2020-01-13] MEDS ORDERED: 0.9 % SODIUM CHLORIDE 1,000 ML IV ONE (13:30)
--- NOTE | 2020-01-13 13:37 | Emergency Department Note ---
Abdominal Pain HPI - General Chief Complaint: Abdominal Pain Stated Complaint: abdominal pain Time Seen by Provider: 01/13/20 13:03 Source: patient Mode of arrival: ambulatory Limitations: no limitations - History of Present Illness HPI Narrative: 79-year-old female was seen by Nyla Bernal PA-C over at [facility] express care for nausea and vomiting x4 days. Found to be hyponatremic with some mild pancreatitis. Has chronic kidney disease and ostomy status post surgical treatment of ulcerative colitis. Sent over here for further treatment I reviewed records from [facility] - Related Data Home Medications Medication Instructions Recorded Confirmed Bisoprolol [Zebeta] 5 mg PO DAILY 10/01/19 10/01/19 Fludrocortisone [Florinef] 0.1 mg PO BID 10/01/19 10/01/19 Magnesium Oxide 400 mg PO BID 10/01/19 10/01/19 Multivit with Calcium,Iron,Min 1 each PO DAILY 10/01/19 10/01/19 [One Daily Women's] Potassium 99 mg PO DAILY 10/01/19 10/01/19 amLODIPine [Norvasc] 5 mg PO DAILY 10/01/19 10/01/19 Allergies Allergy/AdvReac Type Severity Reaction Status Date / Time No Known Drug Allergies Allergy Verified 10/11/19 15:23 Review of Systems All systems ED: reviewed and negative except as stated. Abdominal Pain PMH - Past Medical History Attestation: Yes: The following information was validated with the patient. [facility] Narrative: Medical History Small bowel obstruction (Acute) SBO (small bowel obstruction) (Acute) Medical history: Reports: kidney stones, migraine, osteoporosis, renal disease Surgical history ED: Reports: cholecystectomy, colostomy, hip replacement, hysterectomy, other (Mohs, fistula repair) - Social History Smoking status: Never smoker Alcohol use: Reports: Occasionally Drug use: Reports: none Physical Exam Thin female no acute distress. Hearing aid. No nasal discharge or congestion. Conjunctive are clear sclerae white nonicteric. Oropharynx pink and moist. Neck is supple without lymphadenopathy or thyromegaly. Heart is regular rate and rhythm no murmur appreciated. Lungs are clear to auscultation bilaterally without wheezes rales rhonchi or respiratory distress. Abdomen soft nontender nondistended except for the epigastrium which is mildly tender and off to the left. Ostomy bag in the lower left quadrant. Appears to be in good repair and not leaking. No pedal edema. Alert oriented Limitations: no limitations Course Vital Signs Temperature 97.3 F 01/13/20 12:57 Pulse Rate 65 01/13/20 12:57 Respiratory Rate 18 01/13/20 12:57 Blood Pressure 149/65 01/13/20 12:57 Pulse Oximetry (%) 98 01/13/20 12:57 Temperature 97.3 F 01/13/20 12:57 Pulse Rate 71 01/13/20 16:55 Respiratory Rate 12 01/13/20 15:46 Blood Pressure 123/85 01/13/20 16:55 Pulse Oximetry (%) 96 01/13/20 16:55 Abdominal Pain - Medical Records Medical records reviewed: Yes I reviewed the patient's medical records. Review of medical records from [facility] shows labs with a sodium of 117 potassium 4.3 chloride 80 CO2 of 23 anion gap of 19 glucose of 120. Calcium is 9.1 BUN is 54 creatinine is 2.04 which is her baseline EGFR is about 22 the rest the CMP is within normal limits except AST at 37. Amylase is 153 the top end of that assay being 125 lipase however is 292 with a top end of that assay being 78. CBC is normal without leukocytosis or anemia or eosinophilia - Lab Data Lab results reviewed: Yes I reviewed the patient's lab results. Lab Results 01/13/20 01/13/20 01/13/20 Range/Units 13:48 13:48 13:48 VBG Lactic Acid 2.3 H (0.5-2.0) mmol/L Osmolality 260 L (280-300) mOSM/kg Lipase 214 H (7-60) U/L Urine Osmolality (80-1000) mOsm/kg Ur Random Creatinine mg/dl 01/13/20 01/13/20 Range/Units 14:35 14:35 VBG Lactic Acid (0.5-2.0) mmol/L Osmolality (280-300) mOSM/kg Lipase (7-60) U/L Urine Osmolality 383 (80-1000) mOsm/kg Ur Random Creatinine 107.0 mg/dl - Radiology Data Radiology results reviewed: Yes I reviewed the patient's radiology results. Ultrasound of the pancreas shows thickening in the head. Recommend CT scan. Discussed with Dr. Thang Swan radiologist CT scan of the abdomen and pelvis showed no evidence of pancreatitis - EKG Data EKG attestation: Yes I reviewed and interpreted this EKG., Yes There are no EKG findings of acute coronary syndrome EKG results narrative: Normal sinus rhythm Disposition Pt seen by MOTOR TEACHER/PA only: No Clinical Impression: Hyponatremia, Gastroenteritis Pancreatitis Qualifiers: Chronicity: acute Pancreatitis type: unspecified pancreatitis type Acute pancreatitis complication: unspecified Qualified Code(s): K85.90 - Acute pancreatitis without necrosis or infection, unspecified Chronic renal disease Qualifiers: Chronic kidney disease stage: stage 4 (severe) Qualified Code(s): N18.4 - Chronic kidney disease, stage 4 (severe) Summary: Started IV fluids pain medicine nausea medicine. Ordered a few other labs in addition to ultrasound of the pancreas. Lipase confirms mild pancreatitis -ultrasound shows possible pancreatitis versus mass. CT is recommended-this is ordered CT scan does not show any evidence of pancreatitis, so it is likely relatively mild. However because of the hyponatremia down to 117 she will need to come in for further work-up and treatment. Suspect this is secondary to viral gastroenteritis or similar We continue the IV fluids. I discussed the case with Dr. Amaya, hospitalist. He agreed to accept the patient Disposition: Xfer As Inpt ([facility]) Condition: Fair Referrals: Opal Martin MD [Primary Care Provider] -
--- NOTE | 2020-01-13 14:33 | Ultrasound Report ---
History: Pancreatitis FINDINGS: The visualized portion of the pancreas is diffusely heterogeneous. The tail the pancreas appears to be enlarged and hypoechoic. The pancreatic duct ranges from 2 to 3 mm in diameter. These are new finding since prior CT done on 10/01/19. There are also several tiny foci of increased echogenicity within the pancreatic parenchyma. They do not shadow. No pancreatic calcifications were seen on the prior CT scan. There is no pseudocyst. Common bile duct is 6.7 mm in diameter. This has not changed significantly since the prior CT scan. IMPRESSION: Enlarged heterogeneous pancreas. This is probably due to acute pancreatitis. Neoplasm in the tail of the pancreas is unlikely since there was no enlargement of the pancreas on a recent CT scan. A repeat CT scan of the upper abdomen is recommended. Dr. Inman was called with the results Interpreted and Authenticated by: Thang Swan 01/13/20
--- NOTE | 2020-01-13 15:05 | Cat Scan Report ---
History: Pancreatitis and abnormal pancreas seen on preceding ultrasound TECHNIQUE: The patient was imaged without oral or intravenous contrast from the diaphragm through the symphysis pubis. Sagittal and coronal reformats were created. The radiation exposure was limited using dose reduction technology. FINDINGS: The pancreas appears normal in size and homogeneous without evidence of pancreatitis or neoplasm. There are no calcifications in or adjacent to it and there is no pseudocyst or ascites. The pancreatic duct is nondilated. The gallbladder is been removed and there are clips in the gallbladder fossa. The intrahepatic ducts are nondilated. The distal common hepatic and proximal common bile duct measures up to 8.8 mm. In the head of the pancreas is 5 mm and tapers to normal caliber at the ampulla. There is no stone or mass in the common bile duct. Caliber of the ducts is unchanged from 10/01/19. Evaluation the abdominal organs without contrast is somewhat limited. No abnormality is seen within the liver, spleen or adrenals. There is moderate atrophy of the left kidney. A 1.3 cm cortical cyst is present medially in the upper pole the right kidney. The right kidney is mildly atrophic. No hydronephrosis or stone are present in either kidney. Patient has had prior abdominal surgery. There is an ostomy in the left lateral mid abdominal wall. There also appears to be a Garnica pouch deep in the pelvis above the bladder. IMPRESSION: Anatomically normal pancreas. The suspected abnormality seen on the preceding ultrasound was artifactual due to overlying stomach and bowel. Stable mild dilatation of the extrahepatic bile ducts. This is within normal limits following a prior cholecystectomy No acute abnormality Dr. Inman was called with the results Interpreted and Authenticated by: Thang Swan 01/13/20
--- NOTE | 2020-01-13 16:51 | Internal Med History&Physical ---
Medical - H&P: [facility] Patient information: Note initiated : 01/13/20 at 4:47 pm Service Date, if different from initiated Date: [] Patient: Lesvia Eduardo a 79 y/o F admitted on for Abdominal Pain. Chief Complaint: [] Chief complaint: Weakness nausea vomiting History of present illness: Ms. Eduardo is a 79 year old F with history of colostomy since 1970s. She was referred to the ER after she was seen at [facility]. Patient complains of symptoms nausea vomiting for the last 4 days without associated diarrhea fever. She is getting progressively fatigued and dull mentation. She denies recent change in medications or sick contacts. She endorses normal pain. Initial work-up was consistent with severe hyponatremia with sodium 117 during creatinine of 2.4 and BUN 54. Patient underwent CT scan abdomen without any evidence of acute abdominal process. Patient was started on crystalloid subsequently hospital service was consulted in light of severe symptomatic hyponatremia with weakness and concerns of mental status change. At the time evaluation patient is accompanied with her . She denies active distress. She denies flulike symptoms or recent medication changes, joint pain, rash, cough, increased ostomy output. She denies urinary symptoms. Review of systems A 10 point review system was performed and is negative except ones" Medical - H&P: PMH Medical history: Neuropathy. Chronic kidney disease stage III b managed by Dr. Caicedo, Division Field Inspector. History of nephrolithiasis. Pernicious anemia. Osteoporosis. 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 Fistula repair x4 Hip replacement 2013 Hernia and ovarian cyst in 1988. Ostomy in 1979. Fistula requiring ostomy 1992. Gallbladder surgery 2005. FAMILY HISTORY: brother with multiple sclerosis. Parents in car accident in 30s SOCIAL HISTORY: to [place]. 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 Occasional alcohol, no history of tobacco or substance abuse. Medical - H&P: Meds Home Medications Medication Instructions Recorded Confirmed Type Bisoprolol [Zebeta] 5 mg PO DAILY 10/01/19 10/01/19 History Fludrocortisone [Florinef] 0.1 mg PO BID 10/01/19 10/01/19 History Magnesium Oxide 400 mg PO BID 10/01/19 10/01/19 History Multivit with Calcium,Iron,Min 1 each PO DAILY 10/01/19 10/01/19 History [One Daily Women's] Potassium 99 mg PO DAILY 10/01/19 10/01/19 History amLODIPine [Norvasc] 5 mg PO DAILY 10/01/19 10/01/19 History Allergies Allergy/AdvReac Type Severity Reaction Status Date / Time No Known Drug Allergies Allergy Verified 10/11/19 15:23 Medical - H&P: Exam - Constitutional Vitals: Temp Pulse Resp BP Pulse Ox 97.3 F 72 12 147/49 100 01/13/20 12:57 01/13/20 16:16 01/13/20 15:46 01/13/20 16:16 01/13/20 16:16 General appearance: no acute distress Exam: Alert oriented Head normocephalic Oral cavity dry eye movement symmetrical No ear nose discharge Neck no lymphadenopathy S1-S2 regular rhythm no murmur Diminished breath sounds bases Abdomen nondistended Colostomy bag Skin no suspicious lesion psych alert cooperative No joint swelling erythema Neuro nonfocal Medical - H&P: A/P (1) Hyponatremia Current visit: Yes Status: Acute * Hypovolemic hyponatremia with sodium 117. Secondary to nausea vomiting. Patient denies increased ostomy output. Check urine serum osmolarity/denies diuretic or new medication use, crystalloid/every 4 hours sodium check. * Acute gastroenteritis with nausea vomiting. CT unremarkable for acute abdominal process. Continue supportive management * History of hypertension continue amlodipine/bisoprolol * History of CKD stage IIIb managed by Dr. Caicedo. Current creatinine 2 * History of GERD continue PPI * Ileostomy-continue ostomy care * Hypertension on bisoprolol * Prophylaxis heparin Plan * Inpatient admission * 4 hourly sodium check * Crystalloids * Antiemetics/conservative management * Pre-existing medical condition management on home meds * Monitor renal function
[2020-01-13] MEDS: 0.9 % SODIUM CHLORIDE 1,000 ML IV SCH ×3 (17:56→21:14)
[2020-01-13 18:04] LABS: POC Blood Urea Nitrogen 44 mg/dl (8-23); POC CO2 24 mmol/L (22-30); POC Calcium, Ionized 1.04 mmol/L (1.16-1.32); POC Chloride 87 mmol/L (96-108); POC Glucose, Random 105 mg/dL (70-105); POC Potassium 4.6 mmol/L (3.3-5.1); POC Sodium 119 mmol/L (133-145)
[2020-01-13] MEDS ORDERED: BISACODYL 10 MG SUPP.RECT PR PRN (19:08)
[2020-01-13] MEDS ORDERED: POLYETHYLENE GLYCOL 3350 17 GM PACKET PO PRN (19:08)
[2020-01-13] MEDS ORDERED: MELATONIN 3 MG TABLET PO PRN (19:08)
[2020-01-13] MEDS ORDERED: ONDANSETRON 4 MG ODT TABLET SL PRN (19:08)
[2020-01-13] MEDS ORDERED: ACETAMINOPHEN 325 MG TABLET PO PRN (19:08)
[2020-01-13] MEDS ORDERED: POTASSIUM CHLORIDE 40 MEQ in DEXTROSE 5% IN WATER 500 ML IV PRN (19:08)
[2020-01-13] MEDS ORDERED: POTASSIUM CHLORIDE 20 MEQ PACKET PO PRN (19:08)
[2020-01-13] MEDS ORDERED: MAGNESIUM SULFATE 2 GM/50 ML BAG IV PRN (19:08)
[2020-01-13] MEDS: HYDROmorphone 2 MG/ML VIAL IV PRN ×2 (19:45→22:01)
[2020-01-13 20:09] LABS: Appearance,Urine CLEAR; Bacteria,Urine 0 /hpf (0); Bilirubin,Urine NEG (NEG); Color,Urine YELLOW; Culture Indicated,Urine NO; Glucose,Urine (UA) NEGATIVE (NEG); Ketones,Urine NEG (NEG); Leukocyte Esterase,Urine 25 /uL (NEG); Nitrate,Urine NEG (NEG); Protein,Urine NEG (NEG); Specific Gravity,Urine 1.015 (1.000-1.035); Urine Blood NEG mg/dL (<0.03); Urine RBC 1 /hpf (0-1); Urine Squamous Epithelial Cell 0 /hpf (0-4); Urine Transitional Epi Cells < 1 /hpf (0-2); Urine WBC 3 /hpf (0-4); Urobilinogen,Urine NEG (NEG)
[2020-01-13] MEDS: DOCUSATE SODIUM 100 MG CAPSULE PO SCH (20:29)
[2020-01-13] MEDS: SENNOSIDES/DOCUSATE SODIUM 1 TAB TABLET PO SCH (20:29)
[2020-01-13] MEDS: HEPARIN 5,000 UNIT/ML VIAL SQ SCH (20:30)
[2020-01-13] MEDS: CYANOCOBALAMIN (VITAMIN B-12) 500 MCG TABLET PO SCH (20:31)
[2020-01-13] MEDS: ONDANSETRON 4 MG/2 ML VIAL IV PRN (20:31)
[2020-01-13] MEDS: 0.9 % SODIUM CHLORIDE 10 ML SYRINGE IV SCH (20:35)
[2020-01-14] MEDS: ONDANSETRON 4 MG/2 ML VIAL IV PRN ×2 (02:16→07:45)
[2020-01-14] MEDS: HYDROmorphone 2 MG/ML VIAL IV PRN ×2 (02:17→07:46)
[2020-01-14] MEDS: 0.9 % SODIUM CHLORIDE 10 ML SYRINGE IV SCH ×3 (05:04→20:08)
[2020-01-14 06:19] LABS: Hematocrit 28.8 % (34.1-44.9); Hemoglobin 10.5 g/dL (11.2-15.7); Mean Cell Volume 84.2 fL (80.0-100.0); Mean Corpuscular HGB Conc 36.5 g/dL (31.0-36.0); Mean Platelet Volume 9.4 fL (7.4-10.4); Platelet Count 209 K/mcL (140-440); RBC 3.42 M/mcL (3.59-5.38); Red Cell Distribution Width 11.6 % (11.5-14.5); WBC 4.7 K/mcL (4.50-11.00)
[2020-01-14 06:35] LABS: ALT/SGPT 19 U/l (0-40); AST/SGOT 29 U/l (0-37); Albumin 3.4 gm/dL (3.2-5.2); Albumin/Globulin Ratio 1.5 (1.0-2.3); Alkaline Phosphatase 71 U/L (39-117); Bilirubin,Direct < 0.2 mg/dL (0.0-0.3); Bilirubin,Total 0.4 mg/dL (0.0-1.0); Blood Urea Nitrogen 42 mg/dl (8-23); C-Reactive Protein < 0.3 mg/dl (0.0-0.8); Calcium 7.9 mg/dl (8.6-10.4); Carbon Dioxide 21 mmol/L (22-30); Globulin 2.3 gm/dL (2.2-3.7); Glomerular Filtration Rate 30; Glucose 98 mg/dL (70-105); Lactate Dehydrogenase 177 U/L (94-250); Phosphorous 3.1 mg/dL (2.7-4.5); Triglycerides 64 mg/dl (<150); Uric Acid 8.2 mg/dL (2.5-8.0)
[2020-01-14 06:50] LABS: Chloride 88 mmol/L (96-108)
[2020-01-14 07:50] LABS: Erythrocyte Sedimentation Rate 17 mm/hr (0-20)
[2020-01-14] MEDS: CYANOCOBALAMIN (VITAMIN B-12) 500 MCG TABLET PO SCH ×2 (08:45→20:07)
[2020-01-14] MEDS: MULTIVIT,THER IRON,CA,FA & MIN 1 TABLET PO SCH (08:45)
[2020-01-14] MEDS: FOLIC ACID 1 MG TABLET PO SCH (08:45)
[2020-01-14] MEDS: THIAMINE 100 MG TABLET PO SCH (08:45)
[2020-01-14] MEDS: HEPARIN 5,000 UNIT/ML VIAL SQ SCH ×2 (08:46→20:07)
[2020-01-14] MEDS: SODIUM CHLORIDE 1 GM TABLET PO SCH ×3 (08:46→20:07)
[2020-01-14] MEDS: DOCUSATE SODIUM 100 MG CAPSULE PO SCH ×2 (08:47→20:07)
[2020-01-14 08:57] LABS: Band Neutrophils % 2 % (0-10); Lymphocytes % 22 % (15-49); Monocytes % (Manual) 16 % (1-12); Myelocytes % 1 % (0-0); Platelet Estimate NORMAL (NORMAL); RBC Morphology NORMAL (NORMAL); Segmented Neutrophils % 59 % (38-78)
[2020-01-14] MEDS ORDERED: METOCLOPRAMIDE 10 MG/2 ML VIAL IV ONE (08:59)
--- NOTE | 2020-01-14 10:26 | Internal Med Progress Note ---
Medical - PN: Subj Patient information: Note initiated : 01/14/20 at 10:23 am Service Date, if different from initiated Date: [] Patient: Lesvia Eduardo a 79 y/o F admitted on 01/13/20 for Abdominal Pain. Chief Complaint: [] Interval history: Ms. Eduardo is a 79 year old F with history of colostomy since . She was referred to the ER after she was seen at [facility]. Patient complains of symptoms nausea vomiting for the last 4 days without associated diarrhea fever. She is getting progressively fatigued and dull mentation. She denies recent change in medications or sick contacts. She endorses normal pain. Initial work-up was consistent with severe hyponatremia with sodium 117 during creatinine of 2.4 and BUN 54. Patient underwent CT scan abdomen without any evidence of acute abdominal process. Patient was started on crystalloid subsequently hospital service was consulted in light of severe symptomatic hyponatremia with weakness and concerns of mental status change. At the time evaluation patient is accompanied with her . She denies active distress. She denies flulike symptoms or recent medication changes, joint pain, rash, cough, increased ostomy output. She denies urinary symptoms. 01/13-patient doing better. Sodium 119. On fluid Freewater restriction/salt tabs for SIADH. Creatinine down to 1.6 from 2.4. No overnight fever chills. Persistent nausea and emesis this morning. On antiemetics. Denies abdominal pain. CT abdominal negative for acute abdominal process. Continue crystalloid/supportive management - Constitutional Vitals: Vital Signs Temp Pulse Resp BP Pulse Ox 97.6 F 72 20 118/66 91 01/14/20 07:03 01/14/20 05:41 01/14/20 07:03 01/14/20 07:03 01/14/20 07:03 Period Temp Pulse Resp BP Sys/Fernandez Pulse Ox Last 24 Hr 97.3 F-98.6 F 60-81 12-21 112-149/49-85 91-100 Intake and Output 01/13/20 01/14/20 01/14/20 21:59 05:59 13:59 Intake Total 1300 120 Output Total 400 200 Balance 1300 -400 -80 Weight 141 lb 5 oz Intake & Output: Intake & Output 01/13/20 01/14/20 01/14/20 21:59 05:59 13:59 Intake Total 1300 120 Output Total 400 200 Balance 1300 -400 -80 Weight 141 lb 5 oz Intake: IV 1300 Sodium Chloride 0.9% 1,000 ml @ 1300 250 mls/hr IV .Q4H ROMEO Rx#: [id number] Oral 120 Output: Void Amount 400 Emesis 200 Other: Meal Breakfast Percent of Meal Consumed 50 Feeding Ability Independent # Voids 1 1 General appearance: no acute distress Exam: Weak fatigued lethargic No pallor Colostomy liquid output No lymphedema Medical - PN: Obj Da - Labs CBC & Chem 7: 01/14/20 05:00 01/14/20 05:00 Labs: Abnormal Lab Results 01/14/20 01/14/20 01/14/20 05:00 05:00 00:12 RBC 3.42 L Hgb 10.5 L Hct 28.8 L POC Hct MCHC 36.5 H Monocytes % (Manual) 16 H Myelocytes % 1 H VBG Lactic Acid POC Sodium Sodium 119 L* 118 L* POC Chloride Chloride 88 L Carbon Dioxide 21 L POC BUN BUN 42 H Creatinine 1.6 H POC Creatinine Osmolality Uric Acid 8.2 H Calcium 7.9 L POC WB Ioniz Calcium Magnesium 0.8 L* Total Protein 5.7 L Lipase Ur Leukocyte Esterase 01/13/20 01/13/20 01/13/20 20:28 17:52 14:35 RBC Hgb Hct POC Hct 31.0 L MCHC Monocytes % (Manual) Myelocytes % VBG Lactic Acid POC Sodium 119 L Sodium 118 L* POC Chloride 87 L Chloride Carbon Dioxide POC BUN 44 H BUN Creatinine POC Creatinine 2.0 H Osmolality Uric Acid Calcium POC WB Ioniz Calcium 1.04 L Magnesium Total Protein Lipase Ur Leukocyte Esterase 25 A 01/13/20 01/13/20 01/13/20 13:48 13:48 13:48 RBC Hgb Hct POC Hct MCHC Monocytes % (Manual) Myelocytes % VBG Lactic Acid 2.3 H POC Sodium Sodium POC Chloride Chloride Carbon Dioxide POC BUN BUN Creatinine POC Creatinine Osmolality 260 L Uric Acid Calcium POC WB Ioniz Calcium Magnesium Total Protein Lipase 214 H Ur Leukocyte Esterase Meds: Medications Acetaminophen (Tylenol) 650 mg PO Q4-6HP PRN; Protocol PRN Reason: Per Pain Protocol/Fever > 101 Bisacodyl (Dulcolax) 10 mg HI Q2-3DAYS PRN PRN Reason: Constipation Cyanocobalamin (Vitamin B-12) 1,000 mcg PO BID [facility] Stop: 01/18/20 09:01 Last Admin: 01/14/20 08:45 Dose: 1,000 mcg Documented by: Docusate Sodium (Colace) 100 mg PO BID [facility] Last Admin: 01/14/20 08:47 Dose: Not Given Documented by: Folic Acid (Folic Acid) 1 mg PO DAILY [facility] Last Admin: 01/14/20 08:45 Dose: 1 mg Documented by: Heparin Sodium (Porcine) (Heparin) 5,000 unit SQ Q12 [facility] Last Admin: 01/14/20 08:46 Dose: 5,000 unit Documented by: Hydromorphone HCl (Dilaudid) 0 mg IV Q4HP PRN; Protocol PRN Reason: Per Pain Protocol Last Admin: 01/14/20 07:46 Dose: 0.5 mg Documented by: Sodium Chloride (Sodium Chloride 0.9%) 1,000 mls @ 50 mls/hr IV .Q20H [facility] Stop: 01/16/20 07:07 Last Admin: 01/13/20 19:40 Dose: 50 mls/hr Documented by: Potassium Chloride 40 meq/ (Dextrose) 520 mls @ 130 mls/hr IV UD PRN PRN Reason: K+ = or < 3.5 Magnesium Sulfate (Magnesium Sulfate) 2 gm in 50 mls @ 50 mls/hr IV UD PRN PRN Reason: MG = or < 1.7 Last Admin: 01/14/20 08:45 Dose: 50 mls/hr Documented by: Iron Carb/Multivit/Lajas/Folic Acid (Multivitamin W/Minerals) 1 tab PO DAILY [facility] Last Admin: 01/14/20 08:45 Dose: 1 tab Documented by: Melatonin (Melatonin 3mg Tablet) 3 mg PO HSP PRN PRN Reason: Insomnia Ondansetron HCl (Zofran Odt) 4 mg SL Q4-6HP PRN; Protocol PRN Reason: Nausea And Vomiting Ondansetron HCl (Zofran) 4 mg IV Q4-6HP PRN; Protocol PRN Reason: Nausea And Vomiting Last Admin: 01/14/20 07:45 Dose: 4 mg Documented by: Polyethylene Glycol (Miralax) 17 gm PO DAILYP PRN PRN Reason: Constipation Potassium Chloride (Klor-Con) 40 meq PO DAILYP PRN PRN Reason: K+ < 3.5 Senna/Docusate Sodium (Senna Plus Tablet) 1 tab PO HS [facility] Last Admin: 01/13/20 20:29 Dose: Not Given Documented by: Sodium Chloride (Saline Flush) 10 ml IV Q8 [facility] Last Admin: 01/14/20 05:04 Dose: Not Given Documented by: Sodium Chloride (Sodium Chloride) 2 gm PO TID [facility] Last Admin: 01/14/20 08:46 Dose: 2 gm Documented by: Thiamine HCl (Vitamin B1) 100 mg PO DAILY [facility] Last Admin: 01/14/20 08:45 Dose: 100 mg Documented by: Medical - PN: A/P - Time Spent With Patient Total time spent is greater than 50% in coordination of care (as documented) at patient's floor/unit and/or counseling patient: 25 - 35 minutes (1) Hyponatremia Status: Acute Assessment and plan: * Euvolemic hyponatremia with sodium 117->119. Patient denies increased ostomy output. Urine osmolarity consistent with SIADH. * Acute gastroenteritis with nausea vomiting. CT unremarkable for acute abdominal process. Continue supportive management * History of hypertension continue amlodipine/bisoprolol * History of CKD stage IIIb managed by Dr. Caicedo. Creatinine down to 1.6 * History of GERD continue PPI * Ileostomy-continue ostomy care * Hypertension on bisoprolol * Prophylaxis heparin Plan * Fever restriction/salt tabs * Continue sodium checks * Antiemetics * Pre-existing medical condition management on home meds * PT OT/nutrition support * Discharge planning Current Visit: Yes Medical - PN: Qual - VTE Deep Vein Thrombosis/Pulmonary Embolism Present on Admission: No
[2020-01-14] MEDS: 0.9 % SODIUM CHLORIDE 1,000 ML IV SCH (14:50)
[2020-01-14] MEDS: SENNOSIDES/DOCUSATE SODIUM 1 TAB TABLET PO SCH (20:07)
[2020-01-15] MEDS: 0.9 % SODIUM CHLORIDE 10 ML SYRINGE IV SCH ×2 (04:52→15:37)
[2020-01-15 06:47] LABS: Hematocrit 29.8 % (34.1-44.9); Hemoglobin 10.5 g/dL (11.2-15.7); Mean Cell Volume 86.9 fL (80.0-100.0); Mean Corpuscular HGB Conc 35.2 g/dL (31.0-36.0); Mean Platelet Volume 9.2 fL (7.4-10.4); Platelet Count 205 K/mcL (140-440); RBC 3.43 M/mcL (3.59-5.38); Red Cell Distribution Width 11.9 % (11.5-14.5); WBC 3.9 K/mcL (4.50-11.00)
[2020-01-15 07:16] LABS: ALT/SGPT 19 U/l (0-40); AST/SGOT 27 U/l (0-37); Albumin 3.5 gm/dL (3.2-5.2); Albumin/Globulin Ratio 1.5 (1.0-2.3); Alkaline Phosphatase 74 U/L (39-117); Bilirubin,Direct < 0.2 mg/dL (0.0-0.3); Bilirubin,Total 0.4 mg/dL (0.0-1.0); Calcium 8.5 mg/dl (8.6-10.4); Carbon Dioxide 22 mmol/L (22-30); Chloride 96 mmol/L (96-108); Globulin 2.4 gm/dL (2.2-3.7); Glomerular Filtration Rate 35; Glucose 93 mg/dL (70-105); Lactate Dehydrogenase 197 U/L (94-250); Triglycerides 56 mg/dl (<150); Uric Acid 8.1 mg/dL (2.5-8.0)
[2020-01-15 07:18] LABS: Blood Urea Nitrogen 26 mg/dl (8-23); Phosphorous 2.3 mg/dL (2.7-4.5)
[2020-01-15 08:15] LABS: Eosinophils % (Manual) 1 % (0-7); Lymphocytes % 19 % (15-49); Monocytes % (Manual) 11 % (1-12); Platelet Estimate NORMAL (NORMAL); RBC Morphology NORMAL (NORMAL); Reactive Lymphocytes 1 % (0-2); Segmented Neutrophils % 68 % (38-78)
[2020-01-15] MEDS: CYANOCOBALAMIN (VITAMIN B-12) 500 MCG TABLET PO SCH (08:53)
[2020-01-15] MEDS: HEPARIN 5,000 UNIT/ML VIAL SQ SCH (08:53)
[2020-01-15] MEDS: SODIUM CHLORIDE 1 GM TABLET PO SCH ×2 (08:53→15:43)
[2020-01-15] MEDS: MULTIVIT,THER IRON,CA,FA & MIN 1 TABLET PO SCH (08:53)
[2020-01-15] MEDS: DOCUSATE SODIUM 100 MG CAPSULE PO SCH (08:54)
[2020-01-15] MEDS: FOLIC ACID 1 MG TABLET PO SCH (08:54)
[2020-01-15] MEDS: THIAMINE 100 MG TABLET PO SCH (08:54)
[2020-01-15] MEDS ORDERED: MAGNESIUM SULFATE 2 GM/50 ML BAG IV ONE (10:59)
--- NOTE | 2020-01-15 15:56 | Discharge Summary ---
Medical - DS: Prov Patient information: Note initiated : 01/15/20 at 3:42 pm Service Date, if different from initiated Date: [] Patient: Lesvia Eduardo 79 y/o F admitted on 01/13/20 for Abdominal Pain. Chief Complaint: [] Refer to H&P by Alvaro Lee M.D.> 01/14/20 Ms. Eduardo is a 79 year old F with history of colostomy since 1970s. She was referred to the ER after she was seen at [facility]. Patient complains of symptoms nausea vomiting for the last 4 days without associated diarrhea fever. She is getting progressively fatigued and dull mentation. She denies recent change in medications or sick contacts. She endorses normal pain. Initial work-up was consistent with severe hyponatremia with sodium 117 during creatinine of 2.4 and BUN 54. Patient underwent CT scan abdomen without any evidence of acute abdominal process. Patient was started on crystalloid subsequently hospital service was consulted in light of severe symptomatic hyponatremia with weakness and concerns of mental status change. At the time evaluation patient is accompanied with her . She denies acti ve distress. She denies flulike symptoms or recent medication changes, joint pain, rash, cough, increased ostomy output. She denies urinary symptoms. Date of admission: 01/13/20 18:59 Discharge date: 01/15/20 Primary care physician: Opal Martin Consults: 01/13/20 16:07 Consult to Physician [CONS] Stat Comment: Consulting Provider: Alvaro Lee Reason For Exam: Physician to Consult Medical - DS: Meds - Discharge Medications Prescriptions: Potassium Chloride [Klor-Con] 40 meq PO DAILYP PRN #30 packet PRN Reason: other Transmission Status: Pending to [facility] Metoprolol Tartrate [Lopressor] 12.5 mg PO BID #30 tab Transmission Status: Pending to [facility] amLODIPine [Norvasc] 2.5 mg PO DAILY #30 tab Transmission Status: Pending to [facility] Active and Home Medications: Home Medications Bisoprolol [Zebeta] 5 mg PO DAILY 10/01/19 [History Confirmed 01/13/20 Last Taken 10/01/19 06:00] Fludrocortisone [Florinef] 0.1 mg PO BID 10/01/19 [History Confirmed 01/13/20 Last Taken Unknown] Magnesium Oxide 400 mg PO BID 10/01/19 [History Confirmed 01/13/20 Last Taken Unknown] Multivit with Calcium,Iron,Min [One Daily Women's] 1 each PO DAILY 10/01/19 [History Confirmed 01/13/20 Last Taken 10/01/19 06:00] Potassium 99 mg PO DAILY 10/01/19 [History Confirmed 01/13/20 Last Taken 10/01/19 06:00] Omeprazole [PriLOSEC] 20 mg PO DAILY 01/13/20 [History Confirmed 01/13/20 Last Taken Unknown] Sodium Bicarbonate 650 mg PO TID 01/13/20 [History Confirmed 01/13/20 Last Taken Unknown] Medical - DS: Hosp Hospital Course: Euvolemic hyponatremia with sodium 117->119 - > 130 today. Patient denies increased ostomy output. Urine osmolarity consistent with SIADH. * Acute gastroenteritis with nausea vomiting. CT unremarkable for acute abdominal process. * History of hypertension continue amlodipine/bisoprolol * History of CKD stage IIIb managed by Dr. Caicedo. Creatinine down to 1.4 today * History of GERD continue PPI * Ileostomy-continue ostomy care * Hypertension - metoprolol 12.5mg bid and amlodipine 2.5mg daily * Prophylaxis heparin 01/13-patient doing better. Sodium 119. On fluid Freewater restriction/salt tabs for SIADH. Creatinine down to 1.6 from 2.4. No overnight fever chills. Persistent nausea and emesis this morning. On antiemetics. Denies abdominal pain. CT abdominal negative for acute abdominal process. Continue crystalloid/supportive management 01/14 today he does not have any complaints. Denies n/v/d. No headache, dizziness, chest pain, sob, abdominal pain or dysuria. PT ok to go home. Pt really wants to go home. He will be dicharged to home to f/u with pcp and camp recreation specialist. Check BMP in [address] approval from pcp. Discharge diagnosis: Acute gastroenteritis - Time Spent with Patient Total time spent providing and/or coordinating discharge services: Greater than 30 minutes Medical - DS: Exam - Constitutional Vitals: Vital Signs Temp Pulse Resp BP Pulse Ox 01/15/20 10:00 98.0 F 76 14 153/80 98 01/15/20 08:00 96.4 F L 96 H 14 159/75 97 01/15/20 05:44 97.6 F 76 14 138/73 96 01/15/20 04:00 96.9 F L 80 15 146/76 98 01/15/20 01:57 98.2 F 74 14 146/78 97 01/14/20 23:36 97.9 F 76 16 148/72 95 01/14/20 22:00 97.6 F 73 18 159/74 97 01/14/20 17:45 97.9 F 20 136/67 97 01/14/20 16:00 98.3 F 20 139/78 96 Intake and Output 01/15/20 01/15/20 01/15/20 05:59 13:59 21:59 Output Total 350 Balance -350 Output: Void Amount 350 Other: Urine Appearance Clear Urine Color Pale Stool Size Small Stool Color Yellow Stool Consistency Loose # Voids 1 1 # Bowel Movements 1 - Other Additional findings: General - NAD, sitting up in bed Eyes - PERRLA, EOM intact ENT no rhinorrhea, no noticeable or palpable swelling, no redness or rash around throat or on face Neck supple, no JVD, no thyromegaly Respiratory: Lungs - no use of accessory muscles, clear to auscultation, no crackles or wheezes. Cardiovascular - RRR no m/r/g, GI - Normal bowel sounds, no distended, soft and no tenderness Extremeties - No edema, cyanosis or clubbing Hemo/lymphatic/immune no lymphadenopathy Neurological Alert and oriented x 3, CN 2-12 grossly intact. Psychiatry flat affect Medical - DS: Data Labs on day of discharge: Labs from last 24 hours 01/15/20 01/15/20 01/15/20 14:52 05:00 05:00 WBC 3.9 L RBC 3.43 L Hgb 10.5 L Hct 29.8 L MCV 86.9 MCH 30.6 MCHC 35.2 RDW 11.9 Plt Count 205 MPV 9.2 Total Counted 100 Seg Neutrophils % 68 Band Neutrophils % Not Reportable Lymphocytes % 19 Monocytes % (Manual) 11 Eosinophils % (Manual) 1 Reactive Lymphocytes 1 Platelet Estimate Normal RBC Morphology Normal Sodium 130 L Potassium 3.6 Chloride 96 Carbon Dioxide 22 Anion Gap 12.0 BUN 26 H Creatinine 1.4 H GFR Calculation 35 Glucose 93 Uric Acid 8.1 H Calcium 8.5 L Phosphorus 2.3 L Magnesium 2.6 H 1.5 L Total Bilirubin 0.4 Direct Bilirubin < 0.2 GGT 34 AST 27 ALT 19 Alkaline Phosphatase 74 Lactate Dehydrogenase 197 Total Protein 5.9 Albumin 3.5 Globulin 2.4 Albumin/Globulin Ratio 1.5 Triglycerides 56 01/14/20 15:58 WBC RBC Hgb Hct MCV MCH MCHC RDW Plt Count MPV Total Counted Seg Neutrophils % Band Neutrophils % Lymphocytes % Monocytes % (Manual) Eosinophils % (Manual) Reactive Lymphocytes Platelet Estimate RBC Morphology Sodium 124 L Potassium Chloride Carbon Dioxide Anion Gap BUN Creatinine GFR Calculation Glucose Uric Acid Calcium Phosphorus Magnesium Total Bilirubin Direct Bilirubin GGT AST ALT Alkaline Phosphatase Lactate Dehydrogenase Total Protein Albumin Globulin Albumin/Globulin Ratio Triglycerides Medical - DS: A/P - Patient/Caregiver Discharge Instructions Activity: increase activity as tolerated Diet: Regular Diet Prescriptions: Potassium Chloride [Klor-Con] 40 meq PO DAILYP PRN #30 packet PRN Reason: other Transmission Status: Pending to [facility] Metoprolol Tartrate [Lopressor] 12.5 mg PO BID #30 tab Transmission Status: Pending to [facility] amLODIPine [Norvasc] 2.5 mg PO DAILY #30 tab Transmission Status: Pending to [facility] - Follow up Plan Follow up with: nephrology [Other] (in one week) Opal Martin MD [Primary Care Provider] - (in 3 days) Disposition: Home, Self-Care Prognosis: Fair Rehab Potential: Fair Medical - DS: Qual - VTE Deep Vein Thrombosis/Pulmonary Embolism Present on Admission: No
== END 2020-01-15 16:54 | disposition home or self-care (01) | DRG 392 ==
LOC: ED 12:56 → MEDSUR 18:59
PROVIDERS: ADMIT Internal Medicine; ATTEND Internal Medicine

== ENCOUNTER 2020-01-29 16:14 | Inpatient (IN) ==
--- NOTE | 2020-01-29 16:27 | Emergency Department Note ---
Abdominal Pain HPI - General Chief Complaint: Abdominal Pain Stated Complaint: abdominal pain Time Seen by Provider: 01/29/20 16:21 Source: patient Mode of arrival: ambulatory Limitations: no limitations - History of Present Illness HPI Narrative: 79-year old patient presenting to the [facility] emergency department with a chief complaint of abdominal pain. Patient reports the pain is acute on chronic. Patient has had symptoms for quite some time but acutely since 11:00 today. Patient noting pain is dull/cramping. Patient reporting pain is moderat e/severe. Patient with exacerbating factors of nothing. Patient with ameliorating factors of nothing. Patient with associated symptoms of normal output from her ostomy. Pt was recently discharged from the hospital without a specific diagnosis for her abdominal pain. Pt is wondering if it is adhesions. Patient without associated symptoms of nausea, vomiting, diarrhea, decreased appetite, fever, blood in stool, hematemesis, constipation, dysuria, frequency, hematuria, weight loss, cough, shortness of breath, orthopnea, exertional component. - Related Data Home Medications Medication Instructions Recorded Confirmed Fludrocortisone [Florinef] 0.1 mg PO BID 10/01/19 01/29/20 Magnesium Oxide 400 mg PO BID 10/01/19 01/29/20 Multivit with Calcium,Iron,Min 1 each PO DAILY 10/01/19 01/29/20 [One Daily Women's] Omeprazole [Prilosec] 20 mg PO DAILY 01/13/20 01/29/20 Sodium Bicarbonate 650 mg PO TID 01/13/20 01/29/20 Bisoprolol Fumarate 5 mg PO DAILY 01/29/20 01/29/20 Previous Rx's Medication Instructions Recorded Cyanocobalamin (Vitamin B-12) 1,000 mcg PO BID tab 01/15/20 [Vitamin B-12] Docusate Sodium [Colace] 100 mg PO BID cap 01/15/20 Folic Acid 1 mg PO DAILY tab 01/15/20 Metoprolol Tartrate [Lopressor] 12.5 mg PO BID #30 tab 01/15/20 Potassium Chloride [Klor-Con] 40 meq PO DAILYP PRN #30 packet 01/15/20 amLODIPine [Norvasc] 2.5 mg PO DAILY #30 tab 01/15/20 Allergies Allergy/AdvReac Type Severity Reaction Status Date / Time No Known Drug Allergies Allergy Verified 01/29/20 16:17 Review of Systems All systems ED: reviewed and negative except as stated. Abdominal Pain PMH - Past Medical History PMF Narrative: All Active Problems Small bowel obstruction (Acute) SBO (small bowel obstruction) (Acute) Occipital scalp laceration (Acute) Abdominal pain (Acute) Acute on chronic renal failure (Acute) Uremia of renal origin (Acute) GERD (gastroesophageal reflux disease) (Acute) Urinary tract infection (Acute) Dehydration, mild (Acute) Pancreatitis (Acute) Hyponatremia (Acute) Chronic renal disease (Acute) Gastroenteritis (Acute) Medical history: Reports: kidney stones, migraine, osteoporosis, renal disease - Social History Smoking status: Never smoker Alcohol use: Reports: Occasionally Drug use: Reports: none Physical Exam General: Alert, interactive, appropriate Head: Atraumatic, normocephalic Eyes: Extraocular movements intact Neck: Trachea midline, full range of motion Chest: Symmetrical chest wall rise, breathing normally Abdomen: Patient with tenderness diffusely periumbilical thin strip Cardiovascular: Patient with excellent perfusion to the extremities Extremities: Full range of motion joints, warm well perfused Neuro: Alert, oriented x3, cranial nerves II through XII grossly intact, normal gait Psychiatric: Normal affect normal mood Limitations: no limitations Course Vital Signs Temperature 96.8 F L 01/29/20 16:15 Pulse Rate 106 H 01/29/20 16:15 Respiratory Rate 18 01/29/20 16:15 Blood Pressure 168/86 01/29/20 16:15 Pulse Oximetry (%) 97 01/29/20 16:15 Temperature 96.8 F L 01/29/20 16:15 Pulse Rate 89 01/29/20 16:59 Respiratory Rate 18 01/29/20 16:15 Blood Pressure 168/86 01/29/20 16:15 Pulse Oximetry (%) 98 01/29/20 16:59 Abdominal Pain - MDM Narrative Medical decision making narrative: Initial work-up for this issue included consideration for the following laboratory evaluation CBC, CMP, lipase, urinalysis as well as imaging. Differential diagnosis considered included: Obstruction, perforation, mesenteric ischemia, Crohn's disease, ulcerative colitis, viral gastroenteritis, spontaneous bacterial peritonitis, ketoacidosis, adrenal insufficiency, foodborne illness, IBS, constipation, AAA, abdominal compartment syndrome, abdominal migraine, chronic abdominal pain, colonic pseudoobstruction, zoster, hypercalcemia, hypothyroidism. CT scan demonstrates significant change from scan 2 weeks ago when she was in the hospital demonstrating bowel obstruction with likely fairly distal endpoint/transition point. I discussed the case with general surgery Dr. Milan and the consensus medical opinion is to admit the patient for ongoing inpatient management. Holding orders written by myself. - Lab Data Result diagrams: 01/29/20 16:40 01/29/20 16:40 Lab Results 01/29/20 Range/Units 16:40 WBC 5.3 (4.50-11.00) K/mcL RBC 3.78 (3.59-5.38) M/mcL Hgb 11.8 (11.2-15.7) g/dL Hct 34.7 (34.1-44.9) % MCV 91.8 (80.0-100.0) fL MCH 31.2 (26.0-34.0) pg MCHC 34.0 (31.0-36.0) g/dL RDW 12.3 (11.5-14.5) % Plt Count 203 (140-440) K/mcL MPV 9.3 (7.4-10.4) fL Gran % 63.9 (38.0-78.0) % Lymph % (Auto) 22.6 (15.5-49.0) % [place] % (Auto) 11.8 (1.0-12.0) % Eos % (Auto) 1.1 (0.0-7.0) % Baso % (Auto) 0.6 (0.0-2.0) % Gran # 3.36 (1.80-8.00) K/mcL Lymph # (Auto) 1.19 L (1.50-4.80) K/mcL [place] # (Auto) 0.62 (0.10-0.90) K/mcL Eos # (Auto) 0.06 (0.00-0.70) K/mcL Baso # (Auto) 0.03 (0.00-0.30) K/mcL Disposition Pt seen by [facility]ELOPMENT MANAGER/PA only: No Clinical Impression: Small bowel obstruction due to adhesions Disposition: Xfer As Outpt/Obs ([facility]) Condition: Good Referrals: Opal Martin MD [Primary Care Provider] -
[2020-01-29] MEDS ORDERED: KETOROLAC 30 MG/ML VIAL IV ONE (16:58)
[2020-01-29 17:21] LABS: Basophils # (Auto) 0.03 K/mcL (0.00-0.30); Basophils % (Auto) 0.6 % (0.0-2.0); Eosinophils # (Auto) 0.06 K/mcL (0.00-0.70); Eosinophils % (Auto) 1.1 % (0.0-7.0); Granulocytes % (Auto) 63.9 % (38.0-78.0); Hematocrit 34.7 % (34.1-44.9); Hemoglobin 11.8 g/dL (11.2-15.7); Lymphocytes # (Auto) 1.19 K/mcL (1.50-4.80); Lymphocytes % (Auto) 22.6 % (15.5-49.0); Mean Cell Volume 91.8 fL (80.0-100.0); Mean Platelet Volume 9.3 fL (7.4-10.4); Monocytes # (Auto) 0.62 K/mcL (0.10-0.90); Monocytes % (Auto) 11.8 % (1.0-12.0); Platelet Count 203 K/mcL (140-440); RBC 3.78 M/mcL (3.59-5.38); Red Cell Distribution Width 12.3 % (11.5-14.5); WBC 5.3 K/mcL (4.50-11.00)
[2020-01-29] MEDS ORDERED: ONDANSETRON 4 MG/2 ML VIAL IV PRN ×2 (17:30→18:54)
[2020-01-29 17:35] LABS: Chloride 99 mmol/L (96-108)
[2020-01-29 17:43] LABS: ALT/SGPT 63 U/l (0-40); AST/SGOT 108 U/l (0-37); Albumin/Globulin Ratio 1.4 (1.0-2.3); Alkaline Phosphatase 88 U/L (39-117); Bilirubin,Total 0.2 mg/dL (0.0-1.0); Blood Urea Nitrogen 40 mg/dl (8-23); Calcium 8.8 mg/dl (8.6-10.4); Carbon Dioxide 18 mmol/L (22-30); Globulin 2.9 gm/dL (2.2-3.7); Glomerular Filtration Rate 26; Glucose 120 mg/dL (70-105)
[2020-01-29] MEDS: 0.45 % SODIUM CHLORIDE 1,000 ML IV SCH ×2 (17:45→20:36)
--- NOTE | 2020-01-29 19:09 | General Surg History&Physical ---
History of Present Illness Patient information: Note initiated : 01/29/20 at 7:04 pm Service Date, if different from initiated Date: [] Patient: Lesvia Eduardo a 79 y/o F admitted on for abdominal pain. Chief Complaint: [] HPI: Ms. Eduardo is a 79 year old F with long standing left sided ileostomy after total colectomy fgor Ulcerative colitis. This was in the 1970's. She is a very poor historian and some of this history is from old records. She has had multiple other surgeries including hysterectomy, cholecystectomy and other explorations, but again the details are not clear as she cannot remember. She was admitted 2-3 weeks ago to the medical service for nausea and abdominal pain but she did not have any evidence of a SBO then. She returns here after being seen at the [place] urgent [facility] earlier today with these complaints. Review of Systems All systems PM: reviewed and no additional remarkable complaints except as stated (as in HPI) Past History Past medical history: Neuropathy. Chronic kidney disease stage III b managed by Dr. Caicedo, Analysis Mgr. History of nephrolithiasis. Pernicious anemia. Osteoporosis. Hypertension Ulcerative colitis History of intermittent high output ileostomy on cholestyramine Osteoporosis Chronic low back pain History of migraines Frequent UTI Hearing loss Gastroparesis GERD DJD Past surgical history: SURGICAL HISTORY: Hysterectomy. Fistula repair x4 Hip replacement 2013 Hernia and ovarian cyst in 1988. Ostomy in 1979. Fistula requiring ostomy 1992. Gallbladder surgery 2005. Past family history: FAMILY HISTORY: brother with multiple sclerosis. 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 Occasional alcohol, no history of tobacco or substance abuse. Medications and Allergies Home Medications Medication Instructions Recorded Confirmed Type Fludrocortisone [Florinef] 0.1 mg PO BID 10/01/19 01/29/20 History Magnesium Oxide 400 mg PO BID 10/01/19 01/29/20 History Multivit with Calcium,Iron,Min 1 each PO DAILY 10/01/19 01/29/20 History [One Daily Women's] Omeprazole [Prilosec] 20 mg PO DAILY 01/13/20 01/29/20 History Sodium Bicarbonate 650 mg PO TID 01/13/20 01/29/20 History Cyanocobalamin (Vitamin B-12) 1,000 mcg PO BID tab 01/15/20 01/29/20 Rx [Vitamin B-12] Docusate Sodium [Colace] 100 mg PO BID cap 01/15/20 01/29/20 Rx Folic Acid 1 mg PO DAILY tab 01/15/20 01/29/20 Rx Metoprolol Tartrate [Lopressor] 12.5 mg PO BID #30 tab 01/15/20 01/29/20 Rx Potassium Chloride [Klor-Con] 40 meq PO DAILYP PRN #30 packet 01/15/20 01/29/20 Rx amLODIPine [Norvasc] 2.5 mg PO DAILY #30 tab 01/15/20 01/29/20 Rx Bisoprolol Fumarate 5 mg PO DAILY 01/29/20 01/29/20 History Allergies Allergy/AdvReac Type Severity Reaction Status Date / Time No Known Drug Allergies Allergy Verified 01/29/20 16:17 Exam Temp Pulse Resp BP Pulse Ox 96.8 F L 82 18 145/69 98 01/29/20 16:15 01/29/20 18:35 01/29/20 16:15 01/29/20 18:35 01/29/20 18:35 - General physical appearance well developed, no distress, obese - Eyes normal ocular movement. negative: icteric, deviation - ENT no hearing loss, no congestion - Head Head exam IM: Present: atraumatic, normocephalic - Neck no masses, no bruits, trachea midline, no lymphadenopathy - Cardiovascular Cardiovascular exam IM: Present: normal rate and rhythm - Respiratory normal expansion, normal respiratory effort, clear to percussion, clear to auscultation - Abdomen Abdomen: Present: bowel sounds (Bowel sounds decreased, ABD is Tympanitic and distended, ), surgical scars, wound, distended. Absent: guarding, rebound (tympanitic ostomy in LLQ, no stool in bag) - Integumentary Present: no rash, no abnormal pigmentation - Neurologic Present: normal coordination, normal sensation, memory loss - Psychiatric Present: oriented to time, oriented to person, oriented to place Results - Results CT scan - abdomen: report reviewed (Dilated distal small bowel near ostomy in LLQ), image reviewed Assessment and Plan (1) Small bowel obstruction due to adhesions NG decompression and IV fluids and follow for now. there is no evidence of a parastomal hernia, but obstruction looks to be near the ostomy. Status: Acute (2) Abdominal pain related to SBO Status: Acute Qualifiers: Abdominal location: generalized Qualified Code(s): R10.84 - Generalized abdominal pain
[2020-01-29] MEDS ORDERED: 0.9 % SODIUM CHLORIDE 10 ML SYRINGE IV SCH (22:00)
[2020-01-29] MEDS: FAMOTIDINE/PF 20 MG/2 ML VIAL IV SCH (22:35)
[2020-01-29] MEDS: HEPARIN 5,000 UNIT/ML VIAL SQ SCH (22:35)
[2020-01-29] MEDS: 0.9 % SODIUM CHLORIDE 10 ML SYRINGE IV SCH (22:56)
[2020-01-29] MEDS: SENNOSIDES 1 TABLET PO SCH (22:56)
[2020-01-29] MEDS: DOCUSATE SODIUM 100 MG CAPSULE PO SCH (22:56)
[2020-01-29] MEDS: METOPROLOL TARTRATE 25 MG TABLET PO SCH (22:56)
[2020-01-29 23:34] LABS: Appearance,Urine CLEAR; Bacteria,Urine 0 /hpf (0); Bilirubin,Urine NEG (NEG); Color,Urine YELLOW; Culture Indicated,Urine YES; Glucose,Urine (UA) NEGATIVE (NEG); Ketones,Urine NEG (NEG); Leukocyte Esterase,Urine 250 /uL (NEG); Mucus,Urine FEW /hpf (0); Nitrate,Urine NEG (NEG); Protein,Urine NEG (NEG); Specific Gravity,Urine 1.018 (1.000-1.035); Urine Blood NEG mg/dL (<0.03); Urine Hyaline Cast 3 /lpf (0-2); Urine RBC 3 /hpf (0-1); Urine Squamous Epithelial Cell < 1 /hpf (0-4); Urine Transitional Epi Cells < 1 /hpf (0-2); Urine WBC 30 /hpf (0-4); Urobilinogen,Urine NEG (NEG)
[2020-01-30] MEDS: 0.9 % SODIUM CHLORIDE 10 ML SYRINGE IV SCH ×3 (04:06→20:21)
[2020-01-30] MEDS: 0.45 % SODIUM CHLORIDE 1,000 ML IV SCH ×3 (04:36→21:01)
--- NOTE | 2020-01-30 09:23 | General Surgery Progress Note ---
Subjective Patient reports: no new complaints, feels better, pain is less, voiding w/o difficulty, other (Ileostomy output has increased ) Narrative: Note initiated : 01/30/20 at 9:20 am Service Date, if different from initiated Date: [] Patient: Lesvia Eduardo 79 y/o F admitted on 01/29/20 for abdominal pain. Chief Complaint: [] Objective Temp Pulse Resp BP Pulse Ox 97.5 F 86 16 147/61 96 01/30/20 02:56 01/30/20 02:56 01/30/20 02:56 01/30/20 02:56 01/30/20 02:56 - Additional Data Intake & Output - Last 24 hours: Intake & Output 01/28/20 01/29/20 01/30/20 01/31/20 05:59 05:59 05:59 05:59 Intake Total 1135 Output Total 2825 Balance -1690 Weight 139 lb - General physical appearance well developed, well nourished, no distress - ENT other (NG in place ) - Respiratory normal respiratory effort, clear to percussion, clear to auscultation - Cardiovascular Cardiovascular exam: Present: normal rate and rhythm - Abdomen soft (Ileostomy out put better, NG out put is less and clear, bile stained, not feculent), bowel sounds, surgical scars - Labs 01/29/20 16:40 01/29/20 16:40 Diabetes panel 01/29/20 Range/Units 16:40 Sodium 134 (133-145) mmol/L Potassium 4.9 (3.3-5.1) mmol/L Chloride 99 (96-108) mmol/L Carbon Dioxide 18 L (22-30) mmol/L BUN 40 H (8-23) mg/dl Creatinine 1.8 H (0.6-1.1) mg/dl Glucose 120 H (70-105) mg/dL Calcium 8.8 (8.6-10.4) mg/dl AST 108 H (0-37) U/l ALT 63 H (0-40) U/l Alkaline Phosphatase 88 (39-117) U/L Total Protein 6.9 (5.9-8.4) gm/dL Albumin 4.0 (3.2-5.2) gm/dL Calcium panel 01/29/20 Range/Units 16:40 Calcium 8.8 (8.6-10.4) mg/dl Albumin 4.0 (3.2-5.2) gm/dL Pituitary panel 01/29/20 Range/Units 16:40 Sodium 134 (133-145) mmol/L Potassium 4.9 (3.3-5.1) mmol/L Chloride 99 (96-108) mmol/L Carbon Dioxide 18 L (22-30) mmol/L BUN 40 H (8-23) mg/dl Creatinine 1.8 H (0.6-1.1) mg/dl Glucose 120 H (70-105) mg/dL Calcium 8.8 (8.6-10.4) mg/dl Adrenal panel 01/29/20 Range/Units 16:40 Sodium 134 (133-145) mmol/L Potassium 4.9 (3.3-5.1) mmol/L Chloride 99 (96-108) mmol/L Carbon Dioxide 18 L (22-30) mmol/L BUN 40 H (8-23) mg/dl Creatinine 1.8 H (0.6-1.1) mg/dl Glucose 120 H (70-105) mg/dL Calcium 8.8 (8.6-10.4) mg/dl Total Bilirubin 0.2 (0.0-1.0) mg/dL AST 108 H (0-37) U/l ALT 63 H (0-40) U/l Alkaline Phosphatase 88 (39-117) U/L Total Protein 6.9 (5.9-8.4) gm/dL Albumin 4.0 (3.2-5.2) gm/dL Assessment and Plan (1) Small bowel obstruction due to adhesions Status: Acute Assessment and plan: SBO appears to be resolving with conservative management Current Visit: Yes (2) Abdominal pain Status: Acute Current Visit: No (3) Uremia of renal origin Status: Acute Assessment and plan: BUN ansd Cr up will be sure she remains well hydrated possible UTI will follow up on urine culture Current Visit: No - Time Spent With Patient Total time spent is greater than 50% in coordination of care (as documented) at patient's floor/unit and/or counseling patient:
[2020-01-30] MEDS: DOCUSATE SODIUM 100 MG CAPSULE PO SCH ×2 (09:40→20:21)
[2020-01-30] MEDS: HEPARIN 5,000 UNIT/ML VIAL SQ SCH ×2 (09:41→20:20)
[2020-01-30] MEDS: FAMOTIDINE/PF 20 MG/2 ML VIAL IV SCH ×2 (09:41→20:20)
[2020-01-30] MEDS: amLODIPine 5 MG TABLET PO SCH (10:18)
[2020-01-30] MEDS: METOPROLOL TARTRATE 25 MG TABLET PO SCH ×2 (10:18→20:21)
--- NOTE | 2020-01-30 10:20 | Cat Scan Report ---
CLINICAL INFORMATION: Abdominal pain and distention COMPARISON: Abdomen and pelvic CT 10/01/2019 at 01/13/2020 TECHNIQUE: 0.625 mm helical slices were obtained from the mid heart through the subtrochanteric regions. Following reconstruction, 2.5 mm sagittal, coronal and axial reformatted images were processed and reviewed at bone and soft tissue windows.The exam was performed using radiation dose optimization techniques including, but not limited to, automated exposure control, adjustment of the mA and/or kV according to patient size and use of iterative reconstruction technique. FINDINGS: Lung bases show no abnormality - no effusion. The visualized heart is grossly normal Abdominal images show the noncontrast liver to be normal. The gallbladder is surgically absent: the common bile duct is normal caliber for postcholecystectomy (8 mm) and unchanged. The noncontrast pancreas, spleen and aorta are normal in size, configuration and attenuation without focal lesion. There is mild bilateral renal atrophy: Both kidneys are 8 cm in length.. 18 mm vague low-attenuation region anterior cortex mid right kidney is likely lobulation, but will require ultrasound to exclude a developing mass. No other renal abnormality. Pelvic images show hysterectomy/oophorectomy changes. Urinary bladder is normal. Total colectomy, Maco pouch and ileostomy in the left lower quadrant again seen. A small parastomal hernia containing only mesenteric fat results in mild stranding narrowing of the small bowel exiting the ostomy. Moderate dilatation of the stomach and small bowel to the distal ileal level has increased and compatible with partial small bowel obstruction. Presumably, there is stricture or adhesions in this region - transition point is not identified Bone windows show avascular necrosis in the left femoral head with is radiographically stable. The right total hip prostheses is anatomically aligned without loosening or infection. IMPRESSION: 1. Total colectomy, Maco's pouch ileostomy in the left lower quadrant. Partial small bowel resection changes. There is a recurrent partial small bowel resection ostensibly due to stricture or adhesions in the distal small bowel. Consider: Small bowel follow-through to determine transit time and severity/level of the stricture. There is no free air to suggest perforation and no free fluid to suggest third spacing. 2. Moderate bilateral renal atrophy. 18 mm vague low-attenuation region anterior cortex mid right kidney. These likely represent lobulation but suggest ultrasound to ensure the absence of a mass. 3. Avascular necrosis - left hip Interpreted and Authenticated by: Chidi Dias 01/30/20
[2020-01-30] MEDS: BENZOCAINE 1 SPRAY BOTTLE TOPICAL PRN ×2 (11:00→18:05)
--- NOTE | 2020-01-30 11:34 | XRay Report ---
CLINICAL INFORMATION: Follow-up partial small bowel obstruction COMPARISON: 02/29/2016. FINDINGS: NG tube tip overlies the gastric fundus. Loops of small bowel central abdomen and pelvis are mildly dilated. Ileostomy left lower quadrant noted. Total colectomy acknowledged. No free air or soft tissue mass. Avascular necrosis in the left femoral head is unchanged IMPRESSION: Partial small bowel obstruction pattern. Consider water soluble contrast small bowel follow-through to determine transit time and any point of obstruction and degree. Interpreted and Authenticated by: Chidi Dias 01/30/20
[2020-01-30] MEDS: SENNOSIDES 1 TABLET PO SCH (20:21)
[2020-01-31] MEDS: 0.9 % SODIUM CHLORIDE 10 ML SYRINGE IV SCH ×3 (04:28→20:43)
[2020-01-31] MEDS: 0.45 % SODIUM CHLORIDE 1,000 ML IV SCH ×3 (04:33→20:41)
[2020-01-31 06:31] LABS: Basophils # (Auto) 0.02 K/mcL (0.00-0.30); Basophils % (Auto) 0.6 % (0.0-2.0); Eosinophils # (Auto) 0.09 K/mcL (0.00-0.70); Eosinophils % (Auto) 2.6 % (0.0-7.0); Granulocytes % (Auto) 58.6 % (38.0-78.0); Hematocrit 34.4 % (34.1-44.9); Hemoglobin 11.5 g/dL (11.2-15.7); Lymphocytes # (Auto) 0.79 K/mcL (1.50-4.80); Lymphocytes % (Auto) 22.7 % (15.5-49.0); Mean Corpuscular HGB Conc 33.4 g/dL (31.0-36.0); Mean Platelet Volume 9.1 fL (7.4-10.4); Monocytes # (Auto) 0.54 K/mcL (0.10-0.90); Monocytes % (Auto) 15.5 % (1.0-12.0); Platelet Count 178 K/mcL (140-440); RBC 3.74 M/mcL (3.59-5.38); Red Cell Distribution Width 12.2 % (11.5-14.5); WBC 3.5 K/mcL (4.50-11.00)
[2020-01-31 07:13] LABS: Blood Urea Nitrogen 33 mg/dl (8-23); Carbon Dioxide 15 mmol/L (22-30); Chloride 102 mmol/L (96-108); Glomerular Filtration Rate 30; Glucose 77 mg/dL (70-105)
[2020-01-31] MEDS: BENZOCAINE 1 SPRAY BOTTLE TOPICAL PRN (07:42)
--- NOTE | 2020-01-31 07:49 | General Surgery Progress Note ---
Subjective Patient reports: no new complaints, feels better, other (ileostomy working with increased output) Narrative: Note initiated : 01/31/20 at 7:47 am Service Date, if different from initiated Date: [] Patient: Lesvia Eduardo 79 y/o F admitted on 01/29/20 for abdominal pain. Chief Complaint: [] Objective Temp Pulse Resp BP Pulse Ox 98 F 79 16 128/70 96 01/31/20 03:49 01/31/20 03:49 01/31/20 03:49 01/31/20 03:49 01/31/20 03:49 - Additional Data Intake & Output - Last 24 hours: Intake & Output 01/29/20 01/30/20 01/31/20 02/01/20 05:59 05:59 05:59 05:59 Intake Total 1135 2900 Output Total 2825 3077 Balance -1690 -177 Weight 139 lb 136 lb - General physical appearance well developed, well nourished - Eyes PERRL, normal ocular movement - Respiratory normal respiratory effort, clear to percussion, clear to auscultation - Cardiovascular Cardiovascular exam: Present: normal rate and rhythm - Abdomen soft, non tender, bowel sounds (Less distended and ileostomy is working) - Labs 01/31/20 05:30 01/31/20 05:30 Diabetes panel 01/31/20 Range/Units 05:30 Sodium 133 (133-145) mmol/L Potassium 4.3 (3.3-5.1) mmol/L Chloride 102 (96-108) mmol/L Carbon Dioxide 15 L (22-30) mmol/L BUN 33 H (8-23) mg/dl Creatinine 1.6 H (0.6-1.1) mg/dl Glucose 77 (70-105) mg/dL Calcium panel 01/31/20 Range/Units 05:30 Ionized Calcium Phil 1.14 L (1.16-1.32) mmol/L Pituitary panel 01/31/20 Range/Units 05:30 Sodium 133 (133-145) mmol/L Potassium 4.3 (3.3-5.1) mmol/L Chloride 102 (96-108) mmol/L Carbon Dioxide 15 L (22-30) mmol/L BUN 33 H (8-23) mg/dl Creatinine 1.6 H (0.6-1.1) mg/dl Glucose 77 (70-105) mg/dL Adrenal panel 01/31/20 Range/Units 05:30 Sodium 133 (133-145) mmol/L Potassium 4.3 (3.3-5.1) mmol/L Chloride 102 (96-108) mmol/L Carbon Dioxide 15 L (22-30) mmol/L BUN 33 H (8-23) mg/dl Creatinine 1.6 H (0.6-1.1) mg/dl Glucose 77 (70-105) mg/dL Assessment and Plan (1) Small bowel obstruction due to adhesions Status: Acute Assessment and plan: SBO appears to be resolving with conservative management Current Visit: Yes (2) Abdominal pain Status: Acute Assessment and plan: resolving also Current Visit: No (3) Uremia of renal origin Status: Chronic Assessment and plan: improving Current Visit: No - Time Spent With Patient Total time spent is greater than 50% in coordination of care (as documented) at patient's floor/unit and/or counseling patient:
[2020-01-31] MEDS: HEPARIN 5,000 UNIT/ML VIAL SQ SCH ×2 (08:57→20:41)
[2020-01-31] MEDS: DOCUSATE SODIUM 100 MG CAPSULE PO SCH ×2 (08:57→20:42)
[2020-01-31] MEDS: METOPROLOL TARTRATE 25 MG TABLET PO SCH ×2 (08:57→20:42)
[2020-01-31] MEDS: amLODIPine 5 MG TABLET PO SCH (08:57)
[2020-01-31] MEDS: FAMOTIDINE/PF 20 MG/2 ML VIAL IV SCH ×2 (08:57→20:42)
[2020-01-31] MEDS: SENNOSIDES 1 TABLET PO SCH (20:43)
[2020-02-01] MEDS: 0.45 % SODIUM CHLORIDE 1,000 ML IV SCH ×3 (03:40→22:16)
[2020-02-01] MEDS: 0.9 % SODIUM CHLORIDE 10 ML SYRINGE IV SCH ×3 (05:14→22:32)
[2020-02-01] MEDS: amLODIPine 5 MG TABLET PO SCH (09:13)
[2020-02-01] MEDS: METOPROLOL TARTRATE 25 MG TABLET PO SCH ×2 (09:13→22:18)
[2020-02-01] MEDS: HEPARIN 5,000 UNIT/ML VIAL SQ SCH ×2 (09:13→22:17)
[2020-02-01] MEDS: DOCUSATE SODIUM 100 MG CAPSULE PO SCH ×2 (09:14→22:32)
[2020-02-01] MEDS: FAMOTIDINE/PF 20 MG/2 ML VIAL IV SCH ×2 (09:14→22:17)
--- NOTE | 2020-02-01 10:28 | General Surgery Progress Note ---
Subjective Patient reports: no new complaints, feels better, tolerating liquids well, flatus, bowel movement, other (Ileostomy funtioning some ) Narrative: Note initiated : 02/01/20 at 10:25 am Service Date, if different from initiated Date: [] Patient: Lesvia Eduardo 79 y/o F admitted on 01/29/20 for abdominal pain. Chief Complaint: [] Objective Temp Pulse Resp BP Pulse Ox 98.1 F 65 18 127/68 96 02/01/20 07:52 02/01/20 07:52 02/01/20 07:52 02/01/20 07:52 02/01/20 07:52 - Additional Data Intake & Output - Last 24 hours: Intake & Output 01/30/20 01/31/20 02/01/20 02/02/20 05:59 05:59 05:59 05:59 Intake Total 1135 2900 4603 960 Output Total 2825 3077 4255 1200 Balance -1690 -177 348 -240 Weight 139 lb 136 lb 139 lb - General physical appearance well developed, well nourished, no pain - Respiratory clear to percussion, clear to auscultation - Cardiovascular Cardiovascular exam: Present: normal rate and rhythm - Abdomen soft, non tender - Labs 01/31/20 05:30 01/31/20 05:30 Assessment and Plan (1) Small bowel obstruction due to adhesions Status: Acute Assessment and plan: SBO appears to be resolving with conservative management Current Visit: Yes (2) Abdominal pain Status: Acute Assessment and plan: resolving also Current Visit: No (3) Uremia of renal origin Status: Chronic Assessment and plan: improving Current Visit: No - Narrative A/P Narrative: Improving but because this is a recurrent problem will get enteroclysis study to see if there is a stricture somewhere. - Time Spent With Patient Total time spent is greater than 50% in coordination of care (as documented) at patient's floor/unit and/or counseling patient:
--- NOTE | 2020-02-01 11:22 | Cat Scan Report ---
CLINICAL INFORMATION: Previous colectomy. Prior CT scan suggestive of mechanical small bowel obstruction COMPARISON: Previous CT scans dated 01/29/2020, 01/13/2020 TECHNIQUE: Axial images were obtained through the abdomen and pelvis. Sagittally and coronally reformatted images. 2 bottles of neutral contrast were administered orally. Scans were performed immediately following contrast ingestion. Oral contrast material was not administered due to mild elevation of serum creatinine FINDINGS: Lung bases:No pulmonary parenchymal density. No calcified or noncalcified nodule. No pleural or pericardial effusion Liver:Negative to the limits of noncontrast enhanced examination. Liver contour is smooth without evidence for cirrhosis Gallbladder, billary:Previous cholecystectomy. No dilated bile ducts Spleen:No splenomegaly Pancreas:No pancreatic mass. No peripancreatic abnormality Adrenal glands:Negative Kidneys, ureters, bladder: Probable small hemorrhagic cyst in left kidney. There is no hydronephrosis. No renal calculi. No interval change No hydroureter. No ureteral stone No bladder calculus Gastrointestinal:Previous colectomy with Garnica's pouch creation. There is a left lower quadrant ileostomy. There is jejunal and ileal dilatation. Dilatation is slightly worse than on 01/13/2020 but improved since 01/29/2020. A transition point is not identified. There has been rapid filling of the ileostomy collecting bag with neutral oral contrast material. No high-grade mechanical small bowel obstruction. There is no small bowel wall thickening or evidence for ischemia. No free intraperitoneal fluid Vascular:No abdominal aortic aneurysm Lymphatic:No retroperitoneal adenopathy. No significant mesenteric adenopathy. Mesentery, peritoneum:No free intraperitoneal fluid. No intra-abdominal abscess. No pneumoperitoneum Reproductive:Changes consistent with hysterectomy. No adnexal mass Musculoskeletal:No lumbar compression fractures. No lytic lesions. Sacrum, pelvis, hips are negative. No anterior abdominal wall or inguinal hernia IMPRESSION: 1. Dilated jejunum and ileum, slightly improved since 01/29/2020 2. Rapid passage of neutral contrast material into the ileostomy collecting bag. No high-grade mechanical small bowel obstruction 3. Previous colectomy and Garnica's pouch creation. Appearance stable The exam was performed using radiation dose optimization techniques including, but not limited to, automated exposure control, adjustment of the mA and/or kV according to patient size and use of iterative reconstruction technique. Interpreted and Authenticated by: Chidi Mcgregor 02/01/20
[2020-02-01] MEDS: SENNOSIDES 1 TABLET PO SCH (22:32)
[2020-02-02] MEDS ORDERED: traZODone HCL 50 MG TABLET ONE (00:27)
[2020-02-02 06:28] LABS: Basophils # (Auto) 0.02 K/mcL (0.00-0.30); Basophils % (Auto) 0.7 % (0.0-2.0); Eosinophils # (Auto) 0.11 K/mcL (0.00-0.70); Eosinophils % (Auto) 3.7 % (0.0-7.0); Granulocytes % (Auto) 53.6 % (38.0-78.0); Hematocrit 28.6 % (34.1-44.9); Lymphocytes # (Auto) 0.71 K/mcL (1.50-4.80); Lymphocytes % (Auto) 23.7 % (15.5-49.0); Mean Cell Volume 88.3 fL (80.0-100.0); Mean Platelet Volume 9.1 fL (7.4-10.4); Monocytes # (Auto) 0.55 K/mcL (0.10-0.90); Monocytes % (Auto) 18.3 % (1.0-12.0); Platelet Count 192 K/mcL (140-440); RBC 3.24 M/mcL (3.59-5.38); Red Cell Distribution Width 11.9 % (11.5-14.5)
[2020-02-02 06:46] LABS: Blood Urea Nitrogen 15 mg/dl (8-23); Calcium 8.4 mg/dl (8.6-10.4); Carbon Dioxide 14 mmol/L (22-30); Chloride 102 mmol/L (96-108); Glomerular Filtration Rate 42; Glucose 94 mg/dL (70-105)
[2020-02-02] MEDS: METOPROLOL TARTRATE 25 MG TABLET PO SCH (10:02)
[2020-02-02] MEDS: DOCUSATE SODIUM 100 MG CAPSULE PO SCH (10:03)
[2020-02-02] MEDS: HEPARIN 5,000 UNIT/ML VIAL SQ SCH (10:03)
[2020-02-02] MEDS: amLODIPine 5 MG TABLET PO SCH (10:03)
[2020-02-02] MEDS: FAMOTIDINE/PF 20 MG/2 ML VIAL IV SCH (10:03)
--- NOTE | 2020-02-02 14:09 | Discharge Summary ---
DATE OF ADMISSION: 01/29/2020 DATE OF DISCHARGE: 02/02/2020 ADMISSION DIAGNOSIS: Possible small bowel obstruction, possible recurrence. DISCHARGE DIAGNOSIS: Partial small bowel obstruction versus ileus of unknown origin. HOSPITAL COURSE: This is an 79-year-old white female who had, many years ago, a total colectomy for ulcerative colitis and approximately 3 weeks ago was admitted to the hospital for abdominal pain of uncertain etiology. She got better after observation and was discharged to home. Then, approximately 24 to 48 hours prior to this admission on the , she became more distended, had more abdominal pain and she was seen in the emergency room where CT scan showed probable small bowel obstruction versus ileus. She had again a subtotal colectomy with no colon and an ileostomy. She had noticed decreased ileostomy output. In any event, she was admitted for observation and then further definitive care at that point. She was maintained with NG tube and n.p.o. status and then she somewhat resolved. Because it had been a second episode we ended up getting an enterocleisis CT scan to be sure there was no definite stricture or other obstruction. After this, the ileostomy began functioning normally again. She was tried for a day on clear liquids and then advanced to a full liquid diet and at time of discharge, she is eating normally and stooling normally into the ileostomy without problems. There is no evidence of obstruction at this point. PLAN: Follow-up plan will be to follow up with her primary care physician and with General Surgery in 2 weeks or so. No new medications-she will resume all of her home medications, activity as tolerated, diet as tolerated, and no other restrictions. RPL:kh Job ID: [id number] Doc ID: [id number] Esteban Milan MD
== END 2020-02-02 10:25 | disposition home or self-care (01) | DRG 394 ==
LOC: ED 16:14 → MEDSUR 19:49
PROVIDERS: ADMIT Specialist; ATTEND Specialist

== ENCOUNTER 2020-02-24 10:13 | Inpatient (IN) ==
[2020-02-24] MEDS ORDERED: ONDANSETRON 4 MG/2 ML VIAL ONE (10:25)
[2020-02-24] MEDS ORDERED: ONDANSETRON 4 MG/2 ML VIAL IV ONE (10:26)
[2020-02-24] MEDS ORDERED: 0.9 % SODIUM CHLORIDE 1,000 ML IV ONE ×2 (10:38→12:45)
[2020-02-24] MEDS ORDERED: KETOROLAC 30 MG/ML VIAL IV ONE (10:38)
--- NOTE | 2020-02-24 10:48 | Emergency Department Note ---
Abdominal Pain HPI - General Chief Complaint: Abdominal Pain Stated Complaint: Nausea, Vomiting, Abdominal Pain Time Seen by Provider: 02/24/20 10:18 Source: patient Mode of arrival: ambulatory Limitations: no limitations - History of Present Illness HPI Narrative: 79-year-old female patient presents emergency department with chief complaint of recurrent abdominal pain, nausea, and vomiting. Patient tells me her symptoms started abruptly this morning. She is vomited 4 times since symptom onset. She has a considerable intra-abdominal history of total colectomy performed in the 1970s. She has had a left-sided ileostomy since that time. She was recently hospitalized last month for similar symptoms and spent a approximately 4 days in our facility. A review of the discharge summary done on 02/01 indicates that she was admitted for small bowel obstruction. She did rather well with conservative therapy including NG tube placement and being placed n.p.o. She mentions she saw her primary care provider in follow-up and was doing well at that time. She denies systemic fever, sweats, chills. She denies sinus congestion, runny nose, or cough. She denies any possible exposure to the novel coronavirus. She denies shortness of breath. She denies retrosternal chest pain or palpitations. She describes the pain is severe, sharp, and stabbing pain along the lower aspect of her abdomen. She denies any decreased output from her ileostomy. She denies any hematemesis, hematuria, or bloody discharge from the ileostomy. She denies any dysuria. She denies any focal weakness. A review of her active problems shows the following: Small bowel obstruction, acute on chronic renal failure, GERD, UTI, pancreatitis, hyponatremia, gastroenteritis. - Related Data Home Medications Medication Instructions Recorded Confirmed Fludrocortisone [Florinef] 0.1 mg PO BID 10/01/19 01/29/20 Magnesium Oxide 400 mg PO BID 10/01/19 01/29/20 Multivit with Calcium,Iron,Min 1 each PO DAILY 10/01/19 01/29/20 [One Daily Women's] Omeprazole [Prilosec] 20 mg PO DAILY 01/13/20 01/29/20 Sodium Bicarbonate 650 mg PO TID 01/13/20 01/29/20 Bisoprolol Fumarate 5 mg PO DAILY 04/11/20 04/11/20 Potassium 99 mg PO DAILY 01/29/20 01/29/20 Previous Rx's Medication Instructions Recorded Metoprolol Tartrate [Lopressor] 12.5 mg PO BID #30 tab 01/15/20 amLODIPine [Norvasc] 2.5 mg PO DAILY #30 tab 01/15/20 Allergies Allergy/AdvReac Type Severity Reaction Status Date / Time No Known Drug Allergies Allergy Verified 01/29/20 16:17 Review of Systems All systems ED: reviewed and negative except as stated. Abdominal Pain PMH - Past Medical History Medical history: Reports: kidney stones, migraine, osteoporosis, renal disease - Social History Smoking status: Never smoker Alcohol use: Reports: Occasionally Drug use: Reports: none Physical Exam Limitations: no limitations General appearance: alert, anxious, grimacing, other (Well-developed, well- nourished, 79-year-old female patient laying semirecumbent on the emergency room gurney obviously uncomfortable. She is rocking back and forth and cradling her abdomen. She is in no acute respiratory distress.) Head: atraumatic, normocephalic Eye: Present: normal appearance, PERRL, EOMI. Absent: scleral icterus, conjunctival injection ENT: Present: normal oropharynx, mucous membranes moist Neck: Present: trachea midline. Absent: lymphadenopathy, thyromegaly Chest: Present: symmetric chest wall rise Respiratory: Present: normal lung sounds bilaterally. Absent: respiratory d istress, rales/crackles, wheezes, stridor, accessory muscle use, prolonged expiratory phase Cardiovascular: Present: regular rate, normal rhythm. Absent: systolic murmur, diastolic murmur Abdominal: Present: soft, tenderness, guarding, hyperactive bowel sounds, scar (Considerable scarring throughout her abdomen.), other (Left-sided ileostomy noted. Bag is full of yellow in color fluid with dispersed bits of fecal matter. No obvious blood seen. Skin surrounding the ostomy is somewhat inflamed secondary to the adhesive.). Absent: distention, rebound, rigidity, organomegaly, mass Abdominal tenderness: Present: RLQ, LLQ, moderate Extremities: Present: normal inspection, full ROM, normal capillary refill. Absent: pedal edema Back: Absent: CVA tenderness (R), CVA tenderness (L), spinous process tenderness Neurological: Present: alert, oriented X3 Psychiatric: Present: normal affect, anxious Skin: Present: warm, dry, pallor Course Course Narrative: Patient was brought into emergency department and a history and physical exam was performed. Saline lock was established and laboratory studies were drawn. I discussed the case briefly with my collaborating physician (Dr. Corea) about repeat imaging. At this time it was decided that repeat abdominal/pelvic CT scan would be warranted. This was ordered and reviewed. Patient is profoundly nauseated in the emergency department is given Zofran 4 mg IVP. She was given Toradol 30 mg IVP for the abdominal pain. A review of her laboratory studies show the following: CBC WBC 12.3, all others within normal limits. CMP CO2 19, anion gap 20, BUN 46, creatinine 2.3, glucose 143, AST 64, ALT 45, total protein 8.6, globulin 3.9, all others normal limits. Lipase 141. Lactic acid 1.8. Noncontrast abdomen/pelvic CT scan showing new onset dilatation of the duodenum with thickened mucosal folds. Radiologist mentions this may be due to duodenitis. Patient continues to have stable postsurgical changes following colectomy and creation of a pouch of the distal ileum beneath the ostomy site. Patient meets sepsis criteria with the following: Temperature 96.8, heart rate greater than 90, tachypnea, and elevated WBC greater than 12,000. With this in mind, patient was started on Zosyn 2.25g and vancomycin 1000 mg IV. After reviewing all the data I reached out to our on-call general surgeon (Dr. Elliott) and discussed the case with him. At this time he is recommending that the patient be admitted to the medicine service and have him follow-up in consultation and possible endoscopy. Knowing this, I reached out to our hospitalist (Dr. Solis) and discussed the case with him. At this time Dr. Solis concurs that the patient needs admission and further evaluation/treatment. He is excepted the patient for admission to the hospital. At this time all further treatment decisions, modalities, and ultimate patient disposition be carried out by Dr. Solis Vital Signs Temperature 96.8 F L 02/24/20 10:13 Pulse Rate 95 H 02/24/20 10:13 Respiratory Rate 24 H 02/24/20 10:13 Blood Pressure 146/86 02/24/20 10:13 Pulse Oximetry (%) 98 02/24/20 10:13 Temperature 96.8 F L 05/07/20 10:13 Pulse Rate 80 02/24/20 12:31 Respiratory Rate 24 H 02/24/20 10:13 Blood Pressure 132/83 02/24/20 12:31 Pulse Oximetry (%) 100 02/24/20 12:31 Abdominal Pain - Lab Data Lab results reviewed: Yes I reviewed the patient's lab results. Result diagrams: 02/24/20 10:42 02/24/20 10:42 Lab Results 02/24/20 02/24/20 02/24/20 Range/Units 10:42 10:42 11:28 WBC 12.3 H (4.50-11.00) K/mcL RBC 4.69 (3.59-5.38) M/mcL Hgb 14.2 (11.2-15.7) g/dL Hct 42.0 (34.1-44.9) % MCV 89.6 (80.0-100.0) fL MCH 30.3 (26.0-34.0) pg MCHC 33.8 (31.0-36.0) g/dL RDW 11.6 (11.5-14.5) % Plt Count 285 (140-440) K/mcL MPV 9.3 (7.4-10.4) fL Gran % 77.3 (38.0-78.0) % Lymph % (Auto) 13.7 L (15.5-49.0) % [place] % (Auto) 8.6 (1.0-12.0) % Eos % (Auto) 0.1 (0.0-7.0) % Baso % (Auto) 0.3 (0.0-2.0) % Gran # 9.48 H (1.80-8.00) K/mcL Lymph # (Auto) 1.68 (1.50-4.80) K/mcL [place]aden # (Auto) 1.06 H (0.10-0.90) K/mcL Eos # (Auto) 0.01 (0.00-0.70) K/mcL Baso # (Auto) 0.04 (0.00-0.30) K/mcL VBG Lactic Acid 1.8 (0.5-2.0) mmol/L Sodium 135 (133-145) mmol/L Potassium 4.7 (3.3-5.1) mmol/L Chloride 96 (96-108) mmol/L Carbon Dioxide 19 L (22-30) mmol/L Anion Gap 20.0 H (8-16) BUN 46 H (8-23) mg/dl Creatinine 2.3 H (0.6-1.1) mg/dl GFR Calculation 19 Glucose 143 H (70-105) mg/dL Calcium 9.6 (8.6-10.4) mg/dl Total Bilirubin 0.5 (0.0-1.0) mg/dL AST 64 H (0-37) U/l ALT 45 H (0-40) U/l Alkaline Phosphatase 111 (39-117) U/L Total Protein 8.6 H (5.9-8.4) gm/dL Albumin 4.7 (3.2-5.2) gm/dL Globulin 3.9 H (2.2-3.7) gm/dL Albumin/Globulin Ratio 1.2 (1.0-2.3) Lipase 141 H (7-60) U/L - Radiology Data Radiology results reviewed: Yes I reviewed the patient's radiology results. Ordering Physician: Ancelmo Zimmerman PA-C Date of Service: 02/24/20 Procedure(s): CT abdomen pelvis [facility] Accession Number(s): [id number] History: Nausea, vomiting and recurrent abdominal pain, status post prior total colectomy TECHNIQUE: The patient was imaged without contrast from the diaphragm through the symphysis pubis. Sagittal and coronal reformats were created. The radiation exposure was limited using dose reduction technology. Linings: Evaluation the abdomen without contrast is somewhat limited. No abnormality seen within the liver or spleen. The gallbladder is been removed. The bile ducts are nondilated. There is no apparent mass or inflammation the pancreas. The adrenals are normal symmetric. Patient has moderate atrophy of both kidneys, left worse than right. There is no evidence of a kidney stone or hydronephrosis. The uterus and ovaries have been removed. Most of the colon has been resected. There is a residual stump of the distal sigmoid and rectum. The remaining sigmoid stump is filled with mucus and somewhat distended. Measures 5.3 cm in diameter. This is a chronic stable finding. Patient has an ileostomy in the left anterior abdominal wall. Deep to the ostomy there is a surgically created pouch in the distal ileum. The marie this proximal do not appear to be thickened or inflamed. The caliber of the pouch has diminished in size since 01/29/20. Patient has developed dilatation and thickening of the wall of the duodenal sweep. The jejunum is normal in caliber. There is no evidence of mass ascites or abscess within the abdomen or pelvis. There is a right hip prosthesis creating beam hardening artifact. There are also numerous surgical deborah deep in the pelvis screening artifact in lower pelvis. IMPRESSION: New onset dilatation of the duodenum with thickened mucosal folds. This may be due to duodenitis. Stable postsurgical changes following colectomy and creation of a pouch in the distal ileum beneath the ostomy site. Ancelmo Elsie was called with the results Interpreted and Authenticated by: Thang Swan 02/24/20 Disposition Pt seen by WATCHGUARD/PA only: Yes Clinical Impression: Duodenitis Sepsis Qualifiers: Sepsis type: sepsis due to unspecified organism Sepsis acute organ dysfunction status: unspecified Qualified Code(s): A41.9 - Sepsis, unspecified organism Acute on chronic renal failure Qualifiers: Acute renal failure type: unspecified Chronic kidney disease stage: stage 4 (severe) Qualified Code(s): N17.9 - Acute kidney failure, unspecified Disposition: Xfer As Inpt ([facility]) Condition: Fair Referrals: Opal Martin MD [Primary Care Provider] - Time of Disposition: 12:44
[2020-02-24 11:17] LABS: Basophils # (Auto) 0.04 K/mcL (0.00-0.30); Basophils % (Auto) 0.3 % (0.0-2.0); Eosinophils # (Auto) 0.01 K/mcL (0.00-0.70); Eosinophils % (Auto) 0.1 % (0.0-7.0); Granulocytes % (Auto) 77.3 % (38.0-78.0); Hemoglobin 14.2 g/dL (11.2-15.7); Lymphocytes # (Auto) 1.68 K/mcL (1.50-4.80); Lymphocytes % (Auto) 13.7 % (15.5-49.0); Mean Cell Volume 89.6 fL (80.0-100.0); Mean Corpuscular HGB Conc 33.8 g/dL (31.0-36.0); Mean Platelet Volume 9.3 fL (7.4-10.4); Monocytes # (Auto) 1.06 K/mcL (0.10-0.90); Monocytes % (Auto) 8.6 % (1.0-12.0); Platelet Count 285 K/mcL (140-440); RBC 4.69 M/mcL (3.59-5.38); Red Cell Distribution Width 11.6 % (11.5-14.5); WBC 12.3 K/mcL (4.50-11.00)
[2020-02-24 11:36] LABS: ALT/SGPT 45 U/l (0-40); AST/SGOT 64 U/l (0-37); Albumin 4.7 gm/dL (3.2-5.2); Albumin/Globulin Ratio 1.2 (1.0-2.3); Alkaline Phosphatase 111 U/L (39-117); Bilirubin,Total 0.5 mg/dL (0.0-1.0); Blood Urea Nitrogen 46 mg/dl (8-23); Calcium 9.6 mg/dl (8.6-10.4); Carbon Dioxide 19 mmol/L (22-30); Chloride 96 mmol/L (96-108); Globulin 3.9 gm/dL (2.2-3.7); Glomerular Filtration Rate 19; Glucose 143 mg/dL (70-105)
--- NOTE | 2020-02-24 11:52 | Cat Scan Report ---
History: Nausea, vomiting and recurrent abdominal pain, status post prior total colectomy TECHNIQUE: The patient was imaged without contrast from the diaphragm through the symphysis pubis. Sagittal and coronal reformats were created. The radiation exposure was limited using dose reduction technology. Linings: Evaluation the abdomen without contrast is somewhat limited. No abnormality seen within the liver or spleen. The gallbladder is been removed. The bile ducts are nondilated. There is no apparent mass or inflammation the pancreas. The adrenals are normal symmetric. Patient has moderate atrophy of both kidneys, left worse than right. There is no evidence of a kidney stone or hydronephrosis. The uterus and ovaries have been removed. Most of the colon has been resected. There is a residual stump of the distal sigmoid and rectum. The remaining sigmoid stump is filled with mucus and somewhat distended. Measures 5.3 cm in diameter. This is a chronic stable finding. Patient has an ileostomy in the left anterior abdominal wall. Deep to the ostomy there is a surgically created pouch in the distal ileum. The marie this proximal do not appear to be thickened or inflamed. The caliber of the pouch has diminished in size since 01/29/20. Patient has developed dilatation and thickening of the wall of the duodenal sweep. The jejunum is normal in caliber. There is no evidence of mass ascites or abscess within the abdomen or pelvis. There is a right hip prosthesis creating beam hardening artifact. There are also numerous surgical deborah deep in the pelvis screening artifact in lower pelvis. IMPRESSION: New onset dilatation of the duodenum with thickened mucosal folds. This may be due to duodenitis. Stable postsurgical changes following colectomy and creation of a pouch in the distal ileum beneath the ostomy site. Ancelmo Zimmerman was called with the results Interpreted and Authenticated by: Thang Swan 02/24/20
[2020-02-24] MEDS ORDERED: PIPERACILLIN SODIUM/TAZOBACTAM 2.25 GM in DEXTROSE 5% IN WATER 50 ML IV ONE (12:09)
[2020-02-24] MEDS ORDERED: VANCOMYCIN 1,000 MG in 0.9 % SODIUM CHLORIDE 250 ML IV ONE (12:10)
[2020-02-24] MEDS ORDERED: PROCHLORPERAZINE 10 MG/2 ML VIAL IV PRN ×2 (13:26→14:01)
[2020-02-24] MEDS ORDERED: 0.9 % SODIUM CHLORIDE 1,000 ML IV SCH (13:30)
[2020-02-24] MEDS ORDERED: traMADol 50 MG TABLET PO PRN ×2 (13:35→14:01)
--- NOTE | 2020-02-24 13:47 | Internal Med History&Physical ---
Medical - H&P: [facility] Patient information: Note initiated : 02/24/20 at 1:39 pm Service Date, if different from initiated Date: [] Patient: Lesvia Eduardo a 79 y/o F admitted on for Nausea, Vomiting, Abdominal Pain. Chief Complaint: [] Nausea, vomiting and abdominal pain for 1 day History of present illness: Ms. Eduardo is a 79 year old F with a history of CKD, and colectomy who presented to the ER due to nausea, vomiting abdominal pain. As per patient, patient started to have nausea, vomiting abdominal pain earlier this morning. The pain is diffuse, constant, sharp and 6 out of 10. Otherwise she denies headache, dizziness, chest pain, shortness of breath, palpitation, dysuria, fever, or chills. She was admitted to our hospital on January 12 due to acute gastroenteritis with nausea vomiting. CT unremarkable for acute abdominal process. In the ER, CT abdomen showed duodenitis. She was given IV bolus 30 cc/kg and Zosyn. When I saw this patient in the ER, other than symptoms mentioned above, she was fine. Denied any hematemesis, hematuria, or bloody discharge from the ileostomy. No recent travel or sick contact. Review of systems: Positive for fall nausea, vomiting, and abdominal pain. All other systems were reviewed and are negative. Medical - H&P: PMH Family history: reviewed and not pertinent (brother with multiple sclerosis.) Have you smoked in the last 12 months: No Drug use: none (Continue nicotine patch at bedtime [place] constantly) Alcohol use: none Medical - H&P: Meds Home Medications Medication Instructions Recorded Confirmed Type Fludrocortisone [Florinef] 0.1 mg PO BID 10/01/19 01/29/20 History Magnesium Oxide 400 mg PO BID 10/01/19 01/29/20 History Multivit with Calcium,Iron,Min 1 each PO DAILY 10/01/19 01/29/20 History [One Daily Women's] Omeprazole [Prilosec] 20 mg PO DAILY 01/13/20 01/29/20 History Sodium Bicarbonate 650 mg PO TID 01/13/20 01/29/20 History Metoprolol Tartrate [Lopressor] 12.5 mg PO BID #30 tab 01/15/20 01/29/20 Rx amLODIPine [Norvasc] 2.5 mg PO DAILY #30 tab 01/15/20 01/29/20 Rx Bisoprolol Fumarate 5 mg PO DAILY 01/29/20 01/29/20 History Potassium 99 mg PO DAILY 01/29/20 01/29/20 History Allergies Allergy/AdvReac Type Severity Reaction Status Date / Time No Known Drug Allergies Allergy Verified 01/29/20 16:17 Medical - H&P: Exam - Constitutional Vitals: Temp Pulse Resp BP Pulse Ox 96.8 F L 74 24 H 144/123 100 02/24/20 10:13 02/24/20 13:02 02/24/20 10:13 02/24/20 13:02 02/24/20 13:02 - Other Additional findings: General - No acute distress Eyes - PERRLA, EOM intact ENT no rhinorrhea, no noticeable or palpable swelling, no redness or rash around throat or on face Neck supple, no JVD, no thyromegaly Respiratory: Lungs -clear, no wheezing or crackles. Cardiovascular - RRR no m/r/g, GI -diffusely mild tenderness, normal bowel sounds, no distended, soft. Colostomy bag in place filled with light green liquid. Extremeties - No edema, cyanosis or clubbing Hemo/lymphatic/immune no lymphadenopathy Neurological Alert and oriented x 3, no focal neurological deficits. Psychiatry flat affect Medical - H&P: Reslt - Labs CBC & Chem 7: 02/24/20 10:42 02/24/20 10:42 Labs: Short CBC 02/24/20 Range/Units 10:42 WBC 12.3 H (4.50-11.00) K/mcL Hgb 14.2 (11.2-15.7) g/dL Hct 42.0 (34.1-44.9) % Plt Count 285 (140-440) K/mcL BMP 02/24/20 10:42 Sodium 135 Potassium 4.7 Chloride 96 Carbon Dioxide 19 L BUN 46 H Creatinine 2.3 H Glucose 143 H Calcium 9.6 Liver Function 02/24/20 Range/Units 10:42 Total Bilirubin 0.5 (0.0-1.0) mg/dL AST 64 H (0-37) U/l ALT 45 H (0-40) U/l Alkaline Phosphatase 111 (39-117) U/L Albumin 4.7 (3.2-5.2) gm/dL Medical - H&P: A/P - Narrative A/P Narrative: Assessment: 1. Acute duodenitis 2. S/p colectomy with ostomy 3. Leukocytosis 4. NILA on CKD 5. Dehydration 6. Hx of small bowel obstruction Plan: 1. Abdomen x-ray showed acute duodenitis History of small bowel obstruction She was admitted to our hospital on January 12 due to acute gastroenteritis with nausea vomiting. CT unremarkable for acute abdominal process. Status post hysterectomy, hernia and ovarian cyst in 1988, total colectomy and gallbladder surgery 2005 N.p.o. IV fluid Zosyn 2.25 g IV every 8 hours Pain management including IV morphine General surgeon Dr. Elliott was consulted in the ER -medical treatment 2. Avoid nephrotoxic meds Intake and output IV fluid Repeat renal function in the morning 3. Repeat his WBC in the morning 4. IV fluid for dehydration 5. DVT prophylaxis: Heparin 6. CODE STATUS: Full
--- NOTE | 2020-02-24 13:58 | Event Note ---
Advanced Care Planning Documents: Parties in Attendance: Patient Decisional Capacity: Yes POLST form completed: not I explained the process regarding CPR, defibrillation, shock, and intubation and medication treatment to the patient. She agreed with cpr and intubation.
[2020-02-24] MEDS ORDERED: 0.9 % SODIUM CHLORIDE 10 ML SYRINGE IV SCH (14:00)
[2020-02-24] MEDS ORDERED: HEPARIN 5,000 UNIT/ML VIAL SQ SCH (21:00)
[2020-02-24] MEDS ORDERED: PIPERACILLIN SODIUM/TAZOBACTAM 2.25 GM in DEXTROSE 5% IN WATER 50 ML IV SCH (22:00)
[2020-02-24] MEDS: PIPERACILLIN SODIUM/TAZOBACTAM 2.25 GM in DEXTROSE 5% IN WATER 50 ML IV SCH (22:21)
[2020-02-24] MEDS: HEPARIN 5,000 UNIT/ML VIAL SQ SCH (22:21)
[2020-02-24] MEDS: 0.9 % SODIUM CHLORIDE 10 ML SYRINGE IV SCH (22:21)
[2020-02-25] MEDS: 0.9 % SODIUM CHLORIDE 1,000 ML IV SCH ×2 (00:40→01:32)
[2020-02-25] MEDS: 0.9 % SODIUM CHLORIDE 10 ML SYRINGE IV SCH (04:52)
[2020-02-25] MEDS: PIPERACILLIN SODIUM/TAZOBACTAM 2.25 GM in DEXTROSE 5% IN WATER 50 ML IV SCH ×2 (05:21→14:08)
[2020-02-25 06:38] LABS: Basophils # (Auto) 0.01 K/mcL (0.00-0.30); Basophils % (Auto) 0.3 % (0.0-2.0); Granulocytes % (Auto) 52.5 % (38.0-78.0); Hematocrit 34.8 % (34.1-44.9); Hemoglobin 11.7 g/dL (11.2-15.7); Lymphocytes # (Auto) 0.88 K/mcL (1.50-4.80); Lymphocytes % (Auto) 26.1 % (15.5-49.0); Mean Cell Volume 90.2 fL (80.0-100.0); Mean Corpuscular HGB Conc 33.6 g/dL (31.0-36.0); Mean Platelet Volume 9.4 fL (7.4-10.4); Monocytes # (Auto) 0.61 K/mcL (0.10-0.90); Monocytes % (Auto) 18.1 % (1.0-12.0); Platelet Count 200 K/mcL (140-440); RBC 3.86 M/mcL (3.59-5.38); Red Cell Distribution Width 11.6 % (11.5-14.5); WBC 3.4 K/mcL (4.50-11.00)
[2020-02-25 07:04] LABS: proBNP 378.9 pg/ml (0-450)
[2020-02-25 07:10] LABS: ALT/SGPT 27 U/l (0-40); AST/SGOT 29 U/l (0-37); Albumin 3.7 gm/dL (3.2-5.2); Alkaline Phosphatase 80 U/L (39-117); Bilirubin,Total 0.5 mg/dL (0.0-1.0); Blood Urea Nitrogen 41 mg/dl (8-23); Carbon Dioxide 19 mmol/L (22-30); Chloride 106 mmol/L (96-108); Glomerular Filtration Rate 20; Glucose 83 mg/dL (70-105); Phosphorous 3.7 mg/dL (2.7-4.5)
[2020-02-25 07:28] LABS: Albumin/Globulin Ratio 1.3 (1.0-2.3); Globulin 2.8 gm/dL (2.2-3.7)
[2020-02-25] MEDS ORDERED: PANTOPRAZOLE 40 MG TABLET PO SCH ×2 (07:30)
[2020-02-25] MEDS: HEPARIN 5,000 UNIT/ML VIAL SQ SCH (07:46)
[2020-02-25] MEDS ORDERED: MAGNESIUM SULFATE 4 GM/100 ML BAG IV ONE (08:00)
--- NOTE | 2020-02-25 12:29 | General Surgery Consult Note ---
History of Present Illness Patient information: Note initiated : 02/25/20 at 12:26 pm Service Date, if different from initiated Date: [] Patient: Lesvia Eduardo 79 y/o F admitted on 02/24/20 for Nausea, Vomiting, Abdominal Pain. Chief Complaint: [] Reason for consult: abdominal pain Requesting physician: Damaris Solis History of present illness: 79-year-old female admitted with recurrent left upper quadrant and epigastric pain. 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 She had 4 episodes of emesis and was seen in the emergency room. Evaluation was unremarkable. However, CT suggests inflammation and thickening of the duodenum compatible with duodenitis. She was admitted to the medical service and has been treated. She is doing well at this time and is tolerating full liquid diet. She was seen at this facility on 01/29/20 and 01/13/20. She had similar symptoms but they resolved. She has a permanent ileostomy, but that has been functioning adequately. She has not had any change in stool color. She has liquid stools. Because of her ileostomy. At the present time, patient is clinically stable and probably can be discharged home on PPI. I will see her back in the office in 2 weeks for upper endoscopy If she remains symptomatic. Review of Systems All systems PM: reviewed and no additional remarkable complaints except as state d (negative except as noted in HPI) Past History Past medical history: Chronic kidney disease stage III. Pernicious anemia. Hypertension. Prior history of ulcerative colitis status post total colectomy. High-output ileostomy. Chronic low back pain. Hearing loss. Gastroesophageal reflux disease with esophagitis. Degenerative joint disease Past surgical history: Total colectomy for ulcerative colitis in the 70s. Revision of ostomy 4. Total hip replacement 2013 Hernia repair and removal of ovarian cyst. Cholecystectomy Past family history: Multiple sclerosis. Parents due to follow accident in their 30s Past social history: Retired Occasional alcohol use Denies drug, drug or tobacco use Medications and Allergies Home Medications Medication Instructions Recorded Confirmed Type Fludrocortisone [Florinef] 0.2 mg PO BID 10/01/19 02/24/20 History Magnesium Oxide 400 mg PO BID 10/01/19 02/24/20 History Multivit with Calcium,Iron,Min 1 each PO DAILY 10/01/19 02/24/20 History [One Daily Women's] Omeprazole [Prilosec] 20 mg PO BID 01/13/20 02/24/20 History Sodium Bicarbonate 1,300 mg PO TID 01/13/20 02/24/20 History Metoprolol Tartrate [Lopressor] 12.5 mg PO BID #30 tab 01/15/20 02/24/20 Rx amLODIPine [Norvasc] 2.5 mg PO DAILY #30 tab 01/15/20 02/24/20 Rx Bisoprolol Fumarate 5 mg PO HS 01/29/20 02/24/20 History Potassium 99 mg PO DAILY 01/29/20 02/24/20 History Cyanocobalamin 1,000 mcg SQ MONTHLY 02/24/20 02/24/20 History Allergies Allergy/AdvReac Type Severity Reaction Status Date / Time No Known Drug Allergies Allergy Verified 02/24/20 14:29 Exam Temp Pulse Resp BP Pulse Ox 97.7 F 66 18 129/69 99 02/25/20 08:00 02/25/20 08:00 02/25/20 08:00 02/25/20 08:00 02/25/20 08:00 - General physical appearance well developed, well nourished, no distress, no pain - Eyes PERRL, normal ocular movement - ENT normal pinna, normal nares, normal mucosa, no hearing loss, no congestion - Head Head exam IM: Present: atraumatic, normal inspection, normocephalic - Neck no masses, no bruits, trachea midline, no lymphadenopathy, no venous distension - Cardiovascular Cardiovascular exam IM: Present: normal rate and rhythm - Respiratory normal expansion, normal respiratory effort, clear to auscultation - Abdomen Abdomen: Present: soft, non tender (no epigastric or upper abdominal tenderness; functioning stoma left lower quadrant; healed surgical scars), bowel sounds Hernia: Present: none - Genitourinary Present: normal external genitalia - Integumentary Present: no rash, no growths, no abnormal pigmentation - Neurologic Present: normal coordination, normal sensation - Musculoskeletal Present: normal gait, normal posture - Psychiatric Present: oriented to time, oriented to person, oriented to place, speech is normal, memory intact Results - Labs 02/25/20 04:12 02/25/20 04:12 Abnormal lab results 02/25/20 02/25/20 Range/Units 04:12 04:12 WBC 3.4 L (4.50-11.00) K/mcL [place] % (Auto) 18.1 H (1.0-12.0) % Gran # 1.77 L (1.80-8.00) K/mcL Lymph # (Auto) 0.88 L (1.50-4.80) K/mcL Carbon Dioxide 19 L (22-30) mmol/L BUN 41 H (8-23) mg/dl Creatinine 2.2 H (0.6-1.1) mg/dl Magnesium 0.9 L* (1.6-2.5) mg/dL Lipase 71 H (7-60) U/L Diabetes panel 02/25/20 Range/Units 04:12 Sodium 138 (133-145) mmol/L Potassium 4.8 (3.3-5.1) mmol/L Chloride 106 (96-108) mmol/L Carbon Dioxide 19 L (22-30) mmol/L BUN 41 H (8-23) mg/dl Creatinine 2.2 H (0.6-1.1) mg/dl Glucose 83 (70-105) mg/dL Calcium 9.0 (8.6-10.4) mg/dl AST 29 (0-37) U/l ALT 27 (0-40) U/l Alkaline Phosphatase 80 (39-117) U/L Total Protein 6.5 (5.9-8.4) gm/dL Albumin 3.7 (3.2-5.2) gm/dL Calcium panel 02/25/20 Range/Units 04:12 Calcium 9.0 (8.6-10.4) mg/dl Phosphorus 3.7 (2.7-4.5) mg/dL Albumin 3.7 (3.2-5.2) gm/dL Pituitary panel 02/25/20 Range/Units 04:12 Sodium 138 (133-145) mmol/L Potassium 4.8 (3.3-5.1) mmol/L Chloride 106 (96-108) mmol/L Carbon Dioxide 19 L (22-30) mmol/L BUN 41 H (8-23) mg/dl Creatinine 2.2 H (0.6-1.1) mg/dl Glucose 83 (70-105) mg/dL Calcium 9.0 (8.6-10.4) mg/dl Adrenal panel 02/25/20 Range/Units 04:12 Sodium 138 (133-145) mmol/L Potassium 4.8 (3.3-5.1) mmol/L Chloride 106 (96-108) mmol/L Carbon Dioxide 19 L (22-30) mmol/L BUN 41 H (8-23) mg/dl Creatinine 2.2 H (0.6-1.1) mg/dl Glucose 83 (70-105) mg/dL Calcium 9.0 (8.6-10.4) mg/dl Total Bilirubin 0.5 (0.0-1.0) mg/dL AST 29 (0-37) U/l ALT 27 (0-40) U/l Alkaline Phosphatase 80 (39-117) U/L Total Protein 6.5 (5.9-8.4) gm/dL Albumin 3.7 (3.2-5.2) gm/dL All other labs normal. Assessment and Plan (1) Gastroduodenitis without bleeding Patient is clinically stable at this time and has no symptoms of pain, nausea or vomiting. She can be discharged on PPI with full liquid diet for a few days and then advance to a regular diet. I will follow her up in the office in 2 weeks and proceed with upper endoscopy. If she remains Symptomatic Status: Acute (2) Acute on chronic renal failure Responding to hydration Status: Acute Qualifiers: Acute renal failure type: unspecified Chronic kidney disease stage: stage 4 (severe) Qualified Code(s): N17.9 - Acute kidney failure, unspecified; N18.4 - Chronic kidney disease, stage 4 (severe) (3) GERD (gastroesophageal reflux disease) Status: Chronic
--- NOTE | 2020-02-25 17:04 | Discharge Summary ---
Medical - DS: Prov Patient information: Note initiated : 02/25/20 at 5:01 pm Service Date, if different from initiated Date: [] Patient: Lesvia Eduardo a 79 y/o F admitted on 02/24/20 for Nausea, Vomiting, Abdominal Pain. Chief Complaint: [] Referred to H&P by Damaris Solis M.D.> 02/24/20 Ms. Eduardo is a 79 year old F with a history of CKD, and colectomy who presented to the ER due to nausea, vomiting abdominal pain. As per patient, patient started to have nausea, vomiting abdominal pain earlier this morning. The pain is diffuse, constant, sharp and 6 out of 10. Otherwise she denies headache, dizziness, chest pain, shortness of breath, palpitation, dysuria, fever, or chills. She was admitted to our hospital on January 12 due to acute gastroenteritis with nausea vomiting. CT unremarkable for acute abdominal process. In the ER, CT abdomen showed duodenitis. She was given IV bolus 30 cc/kg and Zosyn. When I saw this patient in the ER, other than symptoms mentioned above, she was fine. Denied any hematemesis, hematuria, or bloody discharge from the ileostomy. No recent travel or sick contact. Date of admission: 02/24/20 14:02 Discharge date: 02/25/20 Primary care physician: Opal Martin Consults: 02/24/20 Consult to Physician [CONS] Stat Comment: Consulting Provider: Damaris Solis Reason For Exam: Physician to Consult Consult to Physician [CONS] Stat Comment: Consulting Provider: Heide Elliott Reason For Exam: Physician to Consult Medical - DS: Meds - Discharge Medications Active and Home Medications: Home Medications Fludrocortisone [Florinef] 0.2 mg PO BID 10/01/19 [History Confirmed 02/24/20 Last Taken 01/29/20 08:00] Magnesium Oxide 400 mg PO BID 10/01/19 [History Confirmed 02/24/20 Last Taken 01/29/20 08:00] Multivit with Calcium,Iron,Min [One Daily Women's] 1 each PO DAILY 10/01/19 [History Confirmed 02/24/20 Last Taken 01/29/20 08:00] Omeprazole [Prilosec] 20 mg PO BID 01/13/20 [History Confirmed 02/24/20 Last Taken 01/29/20 08:00] Sodium Bicarbonate 1,300 mg PO TID 01/13/20 [History Confirmed 02/24/20 Last Taken 01/29/20 12:00] Metoprolol Tartrate [Lopressor] 12.5 mg PO BID #30 tab 01/15/20 [Rx Confirmed 02/24/20 Last Taken Unknown] amLODIPine [Norvasc] 2.5 mg PO DAILY #30 tab 01/15/20 [Rx Confirmed 02/24/20 Last Taken Unknown] Bisoprolol Fumarate 5 mg PO HS 01/29/20 [History Confirmed 02/24/20 Last Taken 01/29/20 08:00] Potassium 99 mg PO DAILY 01/29/20 [History Confirmed 02/24/20 Last Taken 01/29/20 08:00] Cyanocobalamin 1,000 mcg SQ MONTHLY 02/24/20 [History Confirmed 02/24/20 Last Taken Unknown] Medical - DS: Hosp Hospital Course: 1. Acute duodenitis Abdomen x-ray showed acute duodenitis History of small bowel obstruction She was admitted to our hospital on January 12 due to acute gastroenteritis with nausea vomiting. CT unremarkable for acute abdominal process. Status post hysterectomy, hernia and ovarian cyst in 1988, total colectomy and gallbladder surgery 2005 Today she no longer has n/v/d/abd pain. Tolerated clear liquid. Discontinued IV fluid Discontinued Zosyn 2.25 g IV every [address] Elliott saw pt today. As per Dr. Elliott, pt can be discharged on PPI with full liquid diet for a few days and then advance to a regular diet. Dr. Elliott will follow her up in the office in 2 weeks and proceed with upper endoscopy. 2. S/p colectomy with ostomy 3. Leukocytosis - resolved 4. NILA on CKD, creatinine went down to 2.2 from 2.3. Repeat creatinine in 3 days. 5. Dehydration, resolved. encouraged drink more fluid to keep hydrated if she still has diarrhea and vomiting. 6. Hx of small bowel obstruction 7. Hypomagnesemia: Mag 0.9. Mag 4g was given. Repeat mag - 2.8. Repeat electrolytes in 3 days. Today any complaints. Headache, dizziness, chest pain, shortness of breath, nausea diarrhea, abdominal pain, or dysuria. Vital signs are stable. Dr. Elliott cleared pt to discharges home today to f/u with pcp and Dr. Elliott. Call PCP for medical issues. Discharge diagnosis: Acute duodenitis - Time Spent with Patient Total time spent providing and/or coordinating discharge services: Greater than 30 minutes Medical - DS: Exam - Constitutional Vitals: Vital Signs Temp Pulse Resp BP Pulse Ox 02/25/20 12:00 97.6 F 66 18 146/86 98 02/25/20 08:00 97.7 F 66 18 129/69 99 02/25/20 04:00 97.8 F 70 16 138/64 100 02/25/20 00:00 59 L 13 130/66 96 02/24/20 20:00 97.1 F 64 16 125/63 98 Intake and Output 02/25/20 02/25/20 02/25/20 05:59 13:59 21:59 Intake Total 100 900 Output Total 600 1800 Balance -500 -900 Intake: IV 100 100 Zosyn 2.25 gm In Dextrose 5% in 100 Water 50 ml @ 100 mls/hr IV Q8H [facility] Rx#:[id number] Oral 800 Output: Void Amount 250 400 Stool 350 1400 Other: Meal Breakfast Percent of Meal Consumed 100% Urine Appearance Clear Urine Color Bright Yellow Straw Urine Odor Normal Stool Color Green Brown Stool Consistency Liquid - Other Additional findings: General - No acute distress Eyes - PERRLA, EOM intact ENT no rhinorrhea, no noticeable or palpable swelling, no redness or rash around throat or on face Neck supple, no JVD, no thyromegaly Respiratory: Lungs -clear, no wheezing or crackles. Cardiovascular - RRR no m/r/g, GI -diffusely mild tenderness (improved/resolved), normal bowel sounds, no distended, soft. Colostomy bag in place filled with light green liquid. Extremeties - No edema, cyanosis or clubbing Hemo/lymphatic/immune no lymphadenopathy Neurological Alert and oriented x 3, no focal neurological deficits. Psychiatry flat affect Medical - DS: Data Labs on day of discharge: Labs from last 24 hours 02/25/20 02/25/20 02/25/20 14:51 04:12 04:12 WBC 3.4 L RBC 3.86 Hgb 11.7 Hct 34.8 MCV 90.2 MCH 30.3 MCHC 33.6 RDW 11.6 Plt Count 200 MPV 9.4 Gran % 52.5 Lymph % (Auto) 26.1 [place] % (Auto) 18.1 H Eos % (Auto) 3.0 Baso % (Auto) 0.3 Gran # 1.77 L Lymph # (Auto) 0.88 L [place] # (Auto) 0.61 Eos # (Auto) 0.10 Baso # (Auto) 0.01 Sodium 138 Potassium 4.8 Chloride 106 Carbon Dioxide 19 L Anion Gap 13.0 BUN 41 H Creatinine 2.2 H GFR Calculation 20 Glucose 83 Calcium 9.0 Phosphorus 3.7 Magnesium 2.8 H 0.9 L* Total Bilirubin 0.5 AST 29 ALT 27 Alkaline Phosphatase 80 NT-Pro-B Natriuret Pep 378.9 Total Protein 6.5 Albumin 3.7 Globulin 2.8 Albumin/Globulin Ratio 1.3 Lipase 71 H Preliminary micro results at discharge 02/24/20 12:41 Blood Culture - Preliminary Blood 02/24/20 12:35 Blood Culture - Preliminary Blood Medical - DS: A/P - Patient/Caregiver Discharge Instructions Activity: increase activity as tolerated Diet: Clear Liquid - Follow up Plan Follow up with: Heide Elliott MD [Physician] - 03/13/20 Opal Martin MD [Primary Care Provider] - Disposition: Home, Self-Care Prognosis: Good Rehab Potential: Good Medical - DS: Qual - VTE Deep Vein Thrombosis/Pulmonary Embolism Present on Admission: No
== END 2020-02-25 18:32 | disposition home or self-care (01) | DRG 392 ==
LOC: ED 10:13 → ICU 14:02 → MEDSUR 02-25 05:10
PROVIDERS: ADMIT Internal Medicine; ATTEND Internal Medicine

== ENCOUNTER 2020-03-06 16:43 | Inpatient (IN) ==
--- NOTE | 2020-03-06 17:20 | Emergency Department Note ---
Abdominal Pain HPI - General Chief Complaint: Abdominal Pain Stated Complaint: abd pain Time Seen by Provider: 03/06/20 17:05 Source: patient Mode of arrival: ambulatory Limitations: no limitations - History of Present Illness HPI Narrative: 79-year-old female, status post subtotal colectomy back in the 80s for ulcerative colitis. She's had several revisions of her ostomy, recently admitted to hospital for abdominal pain, hospitalized for 2 days, felt to have duodenitis and sent home on a PPI, was doing well up until this morning, 10 AM started developing abdominal pain, crampy in the mid abdomen, fairly intense at times, she feels more bloated. Of note is that she had a CT scan of the abdomen and pelvis done February 12 and the recommendation was to do a small bowel follow- through which she has not had done. She is also status post cholecystectomy, numerous abdominal surgeries for ostomy revision. Denies urinary symptoms, no fevers or chills, no flank pain, she's had a little bit of nausea but no vomiting, but she does feel like her abdomen is distended this morning, has had output in the ostomy bag ate a small breakfast, she also had a small amount to eat for lunch - Related Data Home Medications Medication Instructions Recorded Confirmed Fludrocortisone [Florinef] 0.2 mg PO BID 10/01/19 03/06/20 Multivit with Calcium,Iron,Min 1 each PO DAILY 10/01/19 03/06/20 [One Daily Women's] Omeprazole [Prilosec] 20 mg PO BID 01/13/20 03/06/20 Cyanocobalamin 1,000 mcg SQ MONTHLY 02/24/20 03/06/20 Sodium Bicarbonate 1,300 mg PO TID 03/06/20 03/06/20 amLODIPine [Norvasc] 2.5 mg PO BID 03/06/20 03/06/20 Previous Rx's Medication Instructions Recorded Metoprolol Tartrate [Lopressor] 12.5 mg PO BID #30 tab 01/15/20 Allergies Allergy/AdvReac Type Severity Reaction Status Date / Time No Known Drug Allergies Allergy Verified 02/24/20 14:29 Review of Systems All systems ED: reviewed and negative except as stated. ENT ED: Denies: throat pain, dental pain Cardiovascular: Denies: chest pain, palpitations Abdominal Pain PMH - Past Medical History PMFSH Narrative: Past medical history: Chronic kidney disease stage III. Pernicious anemia. Hypertension. Prior history of ulcerative colitis status post total colectomy. High-output ileostomy. Chronic low back pain. Hearing loss. Gastroesophageal reflux disease with esophagitis. Degenerative joint disease Past surgical history: Total colectomy for ulcerative colitis in the 70s. Revision of ostomy 4. Total hip replacement 2013 Hernia repair and removal of ovarian cyst. Cholecystectomy Medical history: Reports: kidney stones, migraine, osteoporosis, renal disease Surgical history ED: Reports: cholecystectomy, colectomy, other (colectomy, ostomy revision 3) Family history: Reports: no significant family history - Social History Smoking status: Never smoker Alcohol use: Reports: Occasionally Drug use: Reports: none Physical Exam Limitations: no limitations General appearance: alert, grimacing, in distress, tearful Head: atraumatic, normocephalic Eye: Present: normal appearance, PERRL, EOMI. Absent: scleral icterus, conjunctival injection ENT: Present: normal exam, normal oropharynx, mucous membranes moist, other (edentulous upper and lower) Neck: Present: normal inspection, full ROM, trachea midline Chest: Present: normal inspection, symmetric chest wall rise. Absent: tenderness Respiratory: Present: normal lung sounds bilaterally. Absent: respiratory distress, rales/crackles, wheezes, accessory muscle use Cardiovascular: Present: regular rate, normal rhythm Abdominal: Present: soft. Absent: distention, tenderness, guarding Extremities: Present: normal inspection, full ROM. Absent: tenderness Back: Present: normal inspection. Absent: CVA tenderness (R), CVA tenderness (L) Neurological: Present: alert, oriented X3, CN II-XII intact Psychiatric: Present: normal affect, normal mood Skin: Present: warm, dry, normal color Course - Reevaluation(s) Reevaluation #1: Patient started on IV fluids, plain films of the abdomen showing air-fluid levels as well as dilated loops of small bowel in the pelvis. This consistent with small bowel obstruction, she still does have some air and a little bit of stool in the ostomy bag, may represent a partial obstruction, but either way with her abdominal bloating, previous CT scanning showing an area of narrowing, or symptoms consistent with small bowel obstruction. Patient's scenario discussed with Dr. Elliott and we will put in. Initial orders for NG tube and IV fluids. The. She is a little bit dehydrated at this time, we will bolus her with another liter of fluid and then keep her on maintenance fluids. Vital Signs Temperature 97.1 F 03/06/20 16:49 Pulse Rate 95 H 03/06/20 16:49 Respiratory Rate 22 03/06/20 16:49 Blood Pressure 137/83 03/06/20 16:49 Pulse Oximetry (%) 99 03/06/20 16:49 Temperature 97.1 F 03/06/20 16:49 Pulse Rate 83 03/06/20 17:46 Respiratory Rate 12 03/06/20 18:56 Blood Pressure 140/67 03/06/20 18:46 Pulse Oximetry (%) 99 03/06/20 17:46 Abdominal Pain - MDM Narrative Medical decision making narrative: Impression is small bowel obstruction - Lab Data Result diagrams: 03/06/20 17:45 03/06/20 17:44 Lab Results 03/06/20 03/06/20 03/06/20 Range/Units 17:39 17:44 17:45 WBC 8.3 (4.50-11.00) K/mcL RBC 4.35 (3.59-5.38) M/mcL Hgb 13.1 (11.2-15.7) g/dL Hct 38.1 (34.1-44.9) % MCV 87.6 (80.0-100.0) fL MCH 30.1 (26.0-34.0) pg MCHC 34.4 (31.0-36.0) g/dL RDW 11.5 (11.5-14.5) % Plt Count 230 (140-440) K/mcL MPV 9.0 (7.4-10.4) fL Gran % 76.0 (38.0-78.0) % Lymph % (Auto) 13.5 L (15.5-49.0) % [place] % (Auto) 9.6 (1.0-12.0) % Eos % (Auto) 0.7 (0.0-7.0) % Baso % (Auto) 0.2 (0.0-2.0) % Gran # 6.27 (1.80-8.00) K/mcL Lymph # (Auto) 1.11 L (1.50-4.80) K/mcL [place] # (Auto) 0.79 (0.10-0.90) K/mcL Eos # (Auto) 0.06 (0.00-0.70) K/mcL Baso # (Auto) 0.02 (0.00-0.30) K/mcL Sodium 126 L (133-145) mmol/L Potassium 4.3 (3.3-5.1) mmol/L Chloride 88 L (96-108) mmol/L Carbon Dioxide 19 L (22-30) mmol/L Anion Gap 19.0 H (8-16) BUN 35 H (8-23) mg/dl Creatinine 1.9 H (0.6-1.1) mg/dl GFR Calculation 24 Glucose 118 H (70-105) mg/dL Calcium 9.1 (8.6-10.4) mg/dl Total Bilirubin 0.3 (0.0-1.0) mg/dL AST 66 H (0-37) U/l ALT 44 H (0-40) U/l Alkaline Phosphatase 105 (39-117) U/L Total Protein 7.1 (5.9-8.4) gm/dL Albumin 4.0 (3.2-5.2) gm/dL Globulin 3.1 (2.2-3.7) gm/dL Albumin/Globulin Ratio 1.3 (1.0-2.3) Lipase 117 H (7-60) U/L Urine Color Yellow Urine Appearance Clear Urine pH 5.5 (5.0-9.0) Ur Specific [place] 1.015 (1.003-1.030) Urine Protein 30 A (<25) mg/dL Urine Glucose (UA) Norm (NORM) mg/dL Urine Ketones Neg (NEG) mg/dL Urine Occult Blood Neg (<5) tanya/mcL Urine Nitrate Neg (NEG) Urine Bilirubin Neg (NEG) mg/dL Urine Urobilinogen Norm (NORM) mg/dL Ur Leukocyte Esterase 1+ (small) A (NEG) /mcL Urine RBC TNP Urine WBC TNP Ur Squamous Epith Cells TNP Ur Transition Epith Cell TNP Ur Renal Epithelial Cell TNP Calcium Carbonate Cryst TNP Calcium Phosphate Cryst TNP Calcium Oxalate Crystal TNP Leucine Crystals TNP Cystine Crystals TNP Uric Acid Crystals TNP Triple Phos Crystals TNP Tyrosine Crystals TNP Other Crystals TNP Amorphous Crystals TNP Urine Bacteria TNP Cellular Casts TNP Epithelial Casts TNP Fatty Casts TNP Hyaline Casts TNP Granular Casts TNP Waxy Casts TNP Broad Casts TNP RBC Casts TNP WBC Casts TNP Other Casts TNP Urine Mucus TNP Urine Trichomonas TNP Ur Yeast w Hyphae TNP Urine Yeast (Budding) TNP Urine Sperm TNP Ur Oval Fat Bodies TNP Ur Free Fat Droplets TNP Ur Culture Indicated? No Disposition Pt seen by TECHNOLOGY SERVICES MANAGER/PA only: No Clinical Impression: Small bowel obstruction due to adhesions Disposition: Xfer As Inpt ([facility] Condition: Fair Referrals: Opal Martin MD [Primary Care Provider] -
[2020-03-06] MEDS ORDERED: ONDANSETRON 4 MG/2 ML VIAL IV ONE (17:25)
[2020-03-06] MEDS ORDERED: LACTATED RINGERS 1,000 ML IV ONE (17:25)
[2020-03-06] MEDS: HYDROmorphone 0.5 MG/0.5 ML SYRINGE IV PRN ×2 (18:08→19:55)
[2020-03-06 18:35] LABS: Basophils # (Auto) 0.02 K/mcL (0.00-0.30); Basophils % (Auto) 0.2 % (0.0-2.0); Eosinophils # (Auto) 0.06 K/mcL (0.00-0.70); Eosinophils % (Auto) 0.7 % (0.0-7.0); Hematocrit 38.1 % (34.1-44.9); Hemoglobin 13.1 g/dL (11.2-15.7); Lymphocytes # (Auto) 1.11 K/mcL (1.50-4.80); Lymphocytes % (Auto) 13.5 % (15.5-49.0); Mean Cell Volume 87.6 fL (80.0-100.0); Mean Corpuscular HGB Conc 34.4 g/dL (31.0-36.0); Monocytes # (Auto) 0.79 K/mcL (0.10-0.90); Monocytes % (Auto) 9.6 % (1.0-12.0); Platelet Count 230 K/mcL (140-440); RBC 4.35 M/mcL (3.59-5.38); Red Cell Distribution Width 11.5 % (11.5-14.5); WBC 8.3 K/mcL (4.50-11.00)
[2020-03-06 18:41] LABS: Appearance,Urine CLEAR; Bilirubin,Urine NEG (NEG); Color,Urine YELLOW; Culture Indicated,Urine NO; Glucose,Urine (UA) NORM (NORM); Ketones,Urine NEG (NEG); Leukocyte Esterase,Urine 1+ (SMALL) /mcL (NEG); Nitrate,Urine NEG (NEG); PH,Urine 5.5 (5.0-9.0); Protein,Urine 30 mg/dL (<25); Specific Gravity,Urine 1.015 (1.003-1.030); Urine Blood NEG ery/mcL (<5); Urobilinogen,Urine NORM (NORM)
[2020-03-06 18:52] LABS: ALT/SGPT 44 U/l (0-40); AST/SGOT 66 U/l (0-37); Albumin/Globulin Ratio 1.3 (1.0-2.3); Alkaline Phosphatase 105 U/L (39-117); Bilirubin,Total 0.3 mg/dL (0.0-1.0); Blood Urea Nitrogen 35 mg/dl (8-23); Calcium 9.1 mg/dl (8.6-10.4); Carbon Dioxide 19 mmol/L (22-30); Globulin 3.1 gm/dL (2.2-3.7); Glomerular Filtration Rate 24; Glucose 118 mg/dL (70-105)
[2020-03-06 18:56] LABS: Chloride 88 mmol/L (96-108)
[2020-03-06] MEDS ORDERED: HYDROmorphone 0.5 MG/0.5 ML SYRINGE IV PRN (19:26)
[2020-03-06] MEDS ORDERED: ONDANSETRON 4 MG/2 ML VIAL IV PRN (19:26)
[2020-03-06] MEDS: LACTATED RINGERS 1,000 ML IV SCH (22:53)
[2020-03-07] MEDS: LACTATED RINGERS 1,000 ML IV SCH ×6 (04:43→21:55)
--- NOTE | 2020-03-07 07:38 | XRay Report ---
CLINICAL INFORMATION: Follow-up partial small bowel obstruction COMPARISON: 03/06/2020 FINDINGS: NG tube overlies the gastric antrum. Stomach, small and bowel are decompressed with only small amounts of gas scattered within the central small bowel. Total colectomy acknowledged. No free air or soft tissue mass. IMPRESSION: Decompressed GI tract. No evidence of small bowel obstruction pattern Interpreted and Authenticated by: Chidi Dias 03/07/20
--- NOTE | 2020-03-07 07:54 | XRay Report ---
CLINICAL INFORMATION: sbo COMPARISON: 01/30/2020 FINDINGS: NG tube is now out. The stomach and multiple loops of small bowel in the central abdomen have increased increase in caliber and are now moderately dilated compatible with recurrent small bowel obstruction. No free air, soft tissue mass or organomegaly. IMPRESSION: Recurrent distal small bowel obstruction Interpreted and Authenticated by: Chidi Dias 03/07/20
--- NOTE | 2020-03-07 07:59 | XRay Report ---
CLINICAL INFORMATION: NG tube placement COMPARISON: None. FINDINGS: NG tube overlies the gastric body. The stomach and multiple loops small bowel are mildly dilated suggesting recurrent distal small bowel obstruction. No free. IMPRESSION: NG tube in satisfactory position. Recurrent distal small bowel obstruction pattern stable Interpreted and Authenticated by: Chidi Dias 03/07/20
--- NOTE | 2020-03-07 13:51 | General Surg History&Physical ---
History of Present Illness Patient information: Note initiated : 03/07/20 at 1:47 pm Service Date, if different from initiated Date: [03/06/2020] Patient: Lesvia Eduardo a 79 y/o F admitted on 03/06/20 for abd pain. Chief Complaint: [79-year-old female who is readmitted for partial small bowel obstruction. The patient has a history of subtotal colectomy over 20 years ago for ulcerative colitis. She has had 9 abdominal procedures in the interim. She has a known history of abdominal adhesive disease. She was last admitted on 02/25/20 with left upper quadrant and epigastric pain with associated nausea and vomiting. She had dilated loops of both small bowel. CT suggested inflammation and thickening of the duodenum compatible with duodenitis. In spite of the dilation of her bowel. She was not totally obstructed her last visit she was admitted last evening and has improved since admission. She had nasogastric decompression and no longer has dilated loops of bowel. She is putting out liquid stool. Symptom complex is suggestive of partial intestinal obstruction and patient will need to have further evaluation. She has been treated with nasogastric decompression. All night and feels much better.] HPI: Ms. Eduardo is a 79 year old F Review of Systems All systems PM: reviewed and no additional remarkable complaints except as stated (negative review of system with no other positive findings except as noted in the history of present illness) Past History Past medical history: Chronic kidney disease stage III. Pernicious anemia. Hypertension. History of ulcerative colitis status post total colectomy. High output ileostomy. Chronic low back pain. Hearing loss. GERD with esophagitis. Degenerative arthritis Past surgical history: Total colectomy for ulcerative colitis in the 1970s. Revision of ostomy 4. Total hip replacement. Hernia repair. Ovarian cystectomy. Cholecystectomy Past family history: Parents due to auto accident in their Multiple sclerosis 30s Past social history: . Retired. Occasional alcoholic use. Denies drug or tobacco use Medications and Allergies Home Medications Medication Instructions Recorded Confirmed Type Fludrocortisone [Florinef] 0.1 mg PO BID 10/01/19 03/06/20 History Multivit with Calcium,Iron,Min 1 each PO DAILY 10/01/19 03/06/20 History [One Daily Women's] Omeprazole [Prilosec] 20 mg PO BID 01/13/20 03/06/20 History Metoprolol Tartrate [Lopressor] 12.5 mg PO BID #30 tab 01/15/20 03/06/20 Rx Cyanocobalamin [Vitamin B12] 1,000 mcg IM MONTHLY 03/06/20 03/06/20 History Magnesium Oxide [Mag-Oxide 400 mg PO DAILY 03/06/20 03/06/20 History Magnesium] Non Formulary Medication [Pill 1 - 3 each PO PRN PRN 03/06/20 03/06/20 History Cutter] Sodium Bicarbonate 1,300 mg PO TID 03/06/20 03/06/20 History amLODIPine [Norvasc] 2.5 mg PO BID 03/06/20 03/06/20 History Allergies Allergy/AdvReac Type Severity Reaction Status Date / Time No Known Drug Allergies Allergy Verified 02/24/20 14:29 Exam Temp Pulse Resp BP Pulse Ox 97.9 F 79 18 147/76 97 03/07/20 12:00 03/07/20 12:00 03/07/20 12:00 03/07/20 12:00 03/07/20 12:00 - General physical appearance well developed, well nourished, no distress - Eyes PERRL, normal ocular movement - ENT normal pinna, normal nares, normal mucosa, no congestion, decreased hearing - Head Head exam IM: Present: atraumatic, normocephalic - Neck no masses, no bruits, trachea midline, no lymphadenopathy, no venous distension - Cardiovascular Cardiovascular exam IM: Present: normal rate and rhythm - Respiratory normal expansion, normal respiratory effort, clear to percussion, clear to auscultation - Abdomen Abdomen: Present: soft, tender (mildly tender in mid abdomen), bowel sounds (normal active bowel sounds), surgical scars (extensive well-healed surgical scars), distended (mildly distended and slightly tympanitic) Hernia: Present: none - Genitourinary Present: normal external genitalia - Integumentary Present: no rash, no growths, no abnormal pigmentation - Neurologic Present: normal coordination, normal sensation - Musculoskeletal Present: normal gait, normal posture - Psychiatric Present: oriented to time, oriented to person, oriented to place, speech is normal, memory intact Assessment and Plan (1) Partial obstruction of small intestine Obstructive symptoms have partially resolved. We will discontinue nasogastric tube and start on liquids. Follow-up abdominal x-rays in the morning. Patient should be scheduled for upper endoscopy Status: Acute (2) Acute on chronic renal failure Status: Acute Qualifiers: Acute renal failure type: unspecified Chronic kidney disease stage: stage 1 Qualified Code(s): N17.9 - Acute kidney failure, unspecified; N18.1 - Chronic kidney disease, stage 1 (3) GERD (gastroesophageal reflux disease) Status: Chronic (4) Dehydration, mild Status: Acute
[2020-03-07] MEDS: PANTOPRAZOLE 40 MG VIAL IV SCH (16:07)
[2020-03-07] MEDS: FLUDROCORTISONE 0.1 MG TABLET PO SCH (21:49)
[2020-03-08] MEDS: LACTATED RINGERS 1,000 ML IV SCH ×3 (04:41→13:26)
[2020-03-08 06:35] LABS: Basophils # (Auto) 0.02 K/mcL (0.00-0.30); Basophils % (Auto) 0.8 % (0.0-2.0); Eosinophils # (Auto) 0.09 K/mcL (0.00-0.70); Eosinophils % (Auto) 3.4 % (0.0-7.0); Granulocytes % (Auto) 55.6 % (38.0-78.0); Hematocrit 32.6 % (34.1-44.9); Lymphocytes # (Auto) 0.67 K/mcL (1.50-4.80); Lymphocytes % (Auto) 25.4 % (15.5-49.0); Mean Cell Volume 87.2 fL (80.0-100.0); Mean Corpuscular HGB Conc 33.7 g/dL (31.0-36.0); Mean Platelet Volume 8.9 fL (7.4-10.4); Monocytes # (Auto) 0.39 K/mcL (0.10-0.90); Monocytes % (Auto) 14.8 % (1.0-12.0); Platelet Count 196 K/mcL (140-440); RBC 3.74 M/mcL (3.59-5.38); Red Cell Distribution Width 11.5 % (11.5-14.5); WBC 2.6 K/mcL (4.50-11.00)
[2020-03-08 06:44] LABS: ALT/SGPT 24 U/l (0-40); AST/SGOT 28 U/l (0-37); Albumin 3.3 gm/dL (3.2-5.2); Albumin/Globulin Ratio 1.3 (1.0-2.3); Alkaline Phosphatase 83 U/L (39-117); Bilirubin,Direct < 0.2 mg/dL (0.0-0.3); Bilirubin,Total 0.5 mg/dL (0.0-1.0); Calcium 8.8 mg/dl (8.6-10.4); Chloride 97 mmol/L (96-108); Globulin 2.6 gm/dL (2.2-3.7); Glucose 88 mg/dL (70-105); Lactate Dehydrogenase 177 U/L (94-250); Triglycerides 64 mg/dl (<150); Uric Acid 8.1 mg/dL (2.5-8.0)
[2020-03-08 06:46] LABS: Blood Urea Nitrogen 16 mg/dl (8-23); Carbon Dioxide 26 mmol/L (22-30); Glomerular Filtration Rate 35; Phosphorous 2.6 mg/dL (2.7-4.5)
--- NOTE | 2020-03-08 06:52 | XRay Report ---
CLINICAL INFORMATION: FOLLOW -UP OF SMALL BOWEL OBSTRUCTION COMPARISON: 03/07/2020 FINDINGS: NG tube is now out. The bowel gas pattern is normal. No free air, soft tissue mass or organomegaly. IMPRESSION: Negative exam - no evidence of recurrent small bowel obstruction. NG tube now without Interpreted and Authenticated by: Chidi Dias 03/08/20
[2020-03-08] MEDS: PANTOPRAZOLE 40 MG VIAL IV SCH (07:33)
[2020-03-08] MEDS ORDERED: MAGNESIUM OXIDE 400 MG TABLET PO SCH (09:00)
[2020-03-08] MEDS: FLUDROCORTISONE 0.1 MG TABLET PO SCH (09:02)
--- NOTE | 2020-03-08 15:28 | Discharge Summary ---
Providers - Providers Patient information: Note initiated : 03/08/20 at 3:25 pm Service Date, if different from initiated Date: [] Patient: Lesvia Eduardo 79 y/o F admitted on 03/06/20 for abd pain. Chief Complaint: [] Date of admission: 03/06/20 Discharge date: 03/08/20 Attending physician: Heide Elliott Primary care physician: Opal Martin Hospitalization Hospital Course: 79-year-old female who was readmitted for symptoms of partial obstruction. She had increased abdominal distention with nausea but no vomiting. She never completely obstructed and had output through her stoma. She was admitted and started on nasogastric decompression. She responded to this treatment and did not need further evaluation. Follow-up x-rays yesterday showed near-complete resolution of intestinal distention. Her diet has advanced and she tolerates it well. She is eating a full liquid diet without difficulty. She did have mild dehydration but that has resolved. Patient is stable for discharge Discharge diagnosis: partial intestinal obstruction Secondary discharge diagnosis: History of intra-abdominal adhesive disease Chronic kidney disease stage III Dehydration Hypertension Reason for admission: recurrent abdominal pain and nausea Procedures: None Pertinent studies/significant findings: Multiple abdominal x-rays Complications: None Exam Temp Pulse Resp BP Pulse Ox 98.2 F 72 18 146/75 100 03/08/20 12:00 03/08/20 12:00 03/08/20 12:00 03/08/20 12:00 03/08/20 12:00 - General physical appearance well developed, well nourished, no distress - Eyes PERRL, normal ocular movement - ENT normal pinna, normal nares, normal mucosa, no congestion, decreased hearing (decreased hearing bilaterally with hearing aid on the right) - Head Head exam IM: Present: atraumatic, normocephalic - Neck no masses, no bruits, trachea midline, no lymphadenopathy, no venous distension - Cardiovascular Cardiovascular exam IM: Present: normal rate and rhythm - Respiratory normal expansion, normal respiratory effort, clear to percussion, clear to auscultation - Abdomen Abdomen: Present: soft, non tender ( abdomen is soft and nontender with active bowel sounds; she does not have distention; stoma is functioning normal), bowel sounds Hernia: Present: none - Genitourinary Present: normal external genitalia - Integumentary Present: no rash, no growths, no abnormal pigmentation - Neurologic Present: normal coordination, normal sensation - Musculoskeletal Present: normal gait, normal posture - Psychiatric Present: oriented to time, oriented to person, oriented to place, speech is normal, memory intact Discharge Plan - Patient/Caregiver Discharge Instructions Activity: increase activity as tolerated Diet: Regular Diet Additional Instructions: Keep previously scheduled office appointment May advance diet as tolerated - Follow up Plan Follow up with: Opal Martin MD [Primary Care Provider] - Disposition: Home, Self-Care Prognosis: Good Rehab Potential: Good I certify that the patient requires SNF services.: No Overall status at discharge: patient is progressing back to baseline Pending Studies Resuscitation Status Full Code Diet Full Liquid Diet Start FriMarch 07 1242 Fludrocortisone Acetate (Florinef) 0.1 mg PO BID [facility] Last Admin: 03/08/20 09:02 Dose: 0.1 mg Documented by: [facility] Admin: 03/07/20 21:49 Dose: 0.1 mg Documented by: CARRIE Lactated Ringer's (Lactated Ringers) 1,000 mls @ 150 mls/hr IV .[id number] [facility] Last Admin: 03/08/20 13:26 Dose: 150 mls/hr Documented by: Admin: 03/08/20 11:55 Dose: Not Given Documented by: Infusion: 03/08/20 11:22 Dose: 150 mls/hr Documented by: [facility] Admin: 03/08/20 04:41 Dose: 150 mls/hr Documented by: Infusion: 03/08/20 01:16 Dose: 150 mls/hr Documented by: Admin: 03/07/20 21:55 Dose: Not Given Documented by: Admin: 03/07/20 18:35 Dose: 150 mls/hr Documented by: Infusion: 03/07/20 18:34 Dose: 150 mls/hr Documented by: Admin: 03/07/20 15:00 Dose: Not Given Documented by: Admin: 03/07/20 11:53 Dose: 150 mls/hr Documented by: Infusion: 03/07/20 10:43 Dose: 150 mls/hr Documented by: Admin: 03/07/20 10:22 Dose: Not Given Documented by: Admin: 03/07/20 04:43 Dose: 150 mls/hr Documented by: Infusion: 03/07/20 04:43 Dose: 150 mls/hr Documented by: Admin: 03/06/20 22:53 Dose: 150 mls/hr Documented by: CARRIE Magnesium Oxide (Magnesium Oxide) 400 mg PO DAILY [facility] Last Admin: 03/08/20 09:02 Dose: 400 mg Documented by: TERRELL Pantoprazole Sodium (Protonix) 40 mg IV BIDAC [facility] Last Admin: 03/08/20 07:33 Dose: 40 mg Documented by: Admin: 03/07/20 16:07 Dose: 40 mg Documented by: ROXANNA Shift Summary 03/08/20 02:22 Shift Summary by Alicia Cortés AOX4. up and able to make needs known. Up independently to [facility]. Pt NGT was discontinued yesterday and patient has been tolerated a full liquid diet. No complaints of pain or nausea. Pt manages her own ileostomy. Stoma is red and draining yellow/brownish liquid. Skin intact. Patient can't hear out or right ear and has hearing loss with a hearing aid to the left. IV to right forearm infiltrated during the night and is puffy and swollen. New IV to left forearm with LR@150. Initialized on 03/08/20 02:22 - END OF NOTE
== END 2020-03-08 16:45 | disposition home or self-care (01) | DRG 389 ==
LOC: ED 16:43 → MEDSUR 20:23
PROVIDERS: ADMIT Family Medicine Adult Medicine; ATTEND Family Medicine Adult Medicine

== ENCOUNTER 2020-03-18 19:18 | Inpatient (IN) ==
[2020-03-18] MEDS ORDERED: LACTATED RINGERS 1,000 ML IV ONE (19:39)
[2020-03-18] MEDS ORDERED: ONDANSETRON 4 MG/2 ML VIAL IV ONE (19:39)
--- NOTE | 2020-03-18 19:41 | Emergency Department Note ---
Abdominal Pain HPI - General Chief Complaint: Abdominal Pain Stated Complaint: Abdominal Pain Time Seen by Provider: 03/18/20 19:34 Source: patient Mode of arrival: ambulatory Limitations: no limitations - History of Present Illness HPI Narrative: This patient has a long history of recurrent small bowel obstruction. She does have a colostomy. She started having nausea vomiting abdominal pain today. Some decreased output in the colostomy. - Related Data Home Medications Medication Instructions Recorded Confirmed Fludrocortisone [Florinef] 0.1 mg PO BID 10/01/19 03/16/20 Multivit with Calcium,Iron,Min 1 each PO DAILY 10/01/19 03/16/20 [One Daily Women's] Omeprazole [Prilosec] 20 mg PO BID 01/13/20 03/16/20 Cyanocobalamin [Vitamin B12] 1,000 mcg IM MONTHLY 03/06/20 03/16/20 Magnesium Oxide [Mag-Oxide 400 mg PO DAILY 03/06/20 03/16/20 Magnesium] Non Formulary Medication [Pill 1 - 3 each PO PRN PRN 03/06/20 03/16/20 Cutter] Sodium Bicarbonate 1,300 mg PO TID 03/06/20 03/16/20 amLODIPine [Norvasc] 2.5 mg PO BID 03/06/20 03/16/20 potassium PO 03/16/20 03/16/20 Previous Rx's Medication Instructions Recorded Metoprolol Tartrate [Lopressor] 12.5 mg PO BID #30 tab 01/15/20 Allergies Allergy/AdvReac Type Severity Reaction Status Date / Time No Known Drug Allergies Allergy Verified 03/16/20 09:43 Review of Systems All systems ED: reviewed and negative except as stated. Abdominal Pain PMH - Past Medical History [facility] Narrative: Medical History (Last Reviewed 03/16/20 @ 09:44 by Lazara Montes De Oca CMA) Small bowel obstruction (Acute) SBO (small bowel obstruction) (Acute) Past Surgical History (Last Updated 03/16/20 @ 09:48 by Lazara Montes De Oca CMA) History of cholecystectomy (Acute) History of hernia repair (Acute) History of ovarian cystectomy (Acute) History of surgery (Acute) History of total colectomy (Acute) History of total hip replacement (Acute) Family History (Last Updated 03/16/20 @ 09:49 by Lazara Montes De Oca CMA) Other No pertinent family history Medical history: Reports: kidney stones, migraine, osteoporosis, renal disease Family history: Reports: no significant family history - Social History Smoking status: Never smoker Alcohol use: Reports: Occasionally Drug use: Reports: none Physical Exam Limitations: no limitations General appearance: alert Head: atraumatic Eye: Present: normal appearance ENT: Present: normal exam Neck: Present: normal inspection Chest: Present: normal inspection Respiratory: Present: normal lung sounds bilaterally Cardiovascular: Present: regular rate, normal rhythm, normal heart sounds Abdominal: Present: soft, tenderness. Absent: distention, guarding, rebound, rigidity Abdominal tenderness: Present: diffuse, mild Neurological: Present: alert Psychiatric: Present: normal affect Skin: Present: warm, dry Course Vital Signs Temperature 97.2 F 03/18/20 19:19 Pulse Rate 104 H 03/18/20 19:19 Respiratory Rate 03/18/20 19:19 Blood Pressure 146/89 03/18/20 19:19 Pulse Oximetry (%) 91 03/18/20 19:19 Temperature 97.2 F 03/18/20 19:19 Pulse Rate 104 H 03/18/20 19:19 Respiratory Rate 03/18/20 19:19 Blood Pressure 146/89 03/18/20 19:19 Pulse Oximetry (%) 91 03/18/20 19:19 Abdominal Pain - MDM Narrative Medical decision making narrative: Patient has a partial small bowel obstruction and evidence of dehydration. She will be admitted to the hospital for Dr. Elliott. - Lab Data Lab results reviewed: Yes I reviewed the patient's lab results. Result diagrams: 03/18/20 19:58 03/18/20 19:58 Lab Results 03/18/20 03/18/20 Range/Units 19:58 19:58 WBC 10.5 (4.50-11.00) K/mcL RBC 4.43 (3.59-5.38) M/mcL Hgb 13.3 (11.2-15.7) g/dL Hct 37.2 (34.1-44.9) % MCV 84.0 (80.0-100.0) fL MCH 30.0 (26.0-34.0) pg MCHC 35.8 (31.0-36.0) g/dL RDW 11.1 L (11.5-14.5) % Plt Count 253 (140-440) K/mcL MPV 9.3 (7.4-10.4) fL Gran % 82.4 H (38.0-78.0) % Lymph % (Auto) 7.9 L (15.5-49.0) % [place] % (Auto) 9.3 (1.0-12.0) % Eos % (Auto) 0.2 (0.0-7.0) % Baso % (Auto) 0.2 (0.0-2.0) % Gran # 8.64 H (1.80-8.00) K/mcL Lymph # (Auto) 0.83 L (1.50-4.80) K/mcL [place] # (Auto) 0.98 H (0.10-0.90) K/mcL Eos # (Auto) 0.02 (0.00-0.70) K/mcL Baso # (Auto) 0.02 (0.00-0.30) K/mcL Sodium 121 L (133-145) mmol/L Potassium 4.2 (3.3-5.1) mmol/L Chloride 78 L (96-108) mmol/L Carbon Dioxide 22 (22-30) mmol/L Anion Gap 21.0 H (8-16) BUN 39 H (8-23) mg/dl Creatinine 2.2 H (0.6-1.1) mg/dl GFR Calculation 20 Glucose 148 H (70-105) mg/dL Calcium 9.3 (8.6-10.4) mg/dl Total Bilirubin 0.6 (0.0-1.0) mg/dL AST 45 H (0-37) U/l ALT 34 (0-40) U/l Alkaline Phosphatase 108 (39-117) U/L Total Protein 7.8 (5.9-8.4) gm/dL Albumin 4.6 (3.2-5.2) gm/dL Globulin 3.2 (2.2-3.7) gm/dL Albumin/Globulin Ratio 1.4 (1.0-2.3) - Radiology Data Radiology results reviewed: Yes I reviewed the patient's radiology results. Disposition Pt seen by SIGNAL ENGINEER/PA only: No Clinical Impression: Small bowel obstruction Disposition: Xfer As Inpt ([facility]) Condition: Good Instructions: Bowel Obstruction (ED) Referrals: Opal Martin MD [Primary Care Provider] - Time of Disposition: 21:22
[2020-03-18 20:55] LABS: Basophils # (Auto) 0.02 K/mcL (0.00-0.30); Basophils % (Auto) 0.2 % (0.0-2.0); Eosinophils # (Auto) 0.02 K/mcL (0.00-0.70); Eosinophils % (Auto) 0.2 % (0.0-7.0); Granulocytes % (Auto) 82.4 % (38.0-78.0); Hematocrit 37.2 % (34.1-44.9); Hemoglobin 13.3 g/dL (11.2-15.7); Lymphocytes # (Auto) 0.83 K/mcL (1.50-4.80); Lymphocytes % (Auto) 7.9 % (15.5-49.0); Mean Corpuscular HGB Conc 35.8 g/dL (31.0-36.0); Mean Platelet Volume 9.3 fL (7.4-10.4); Monocytes # (Auto) 0.98 K/mcL (0.10-0.90); Monocytes % (Auto) 9.3 % (1.0-12.0); Platelet Count 253 K/mcL (140-440); RBC 4.43 M/mcL (3.59-5.38); Red Cell Distribution Width 11.1 % (11.5-14.5); WBC 10.5 K/mcL (4.50-11.00)
[2020-03-18 21:10] LABS: ALT/SGPT 34 U/l (0-40); AST/SGOT 45 U/l (0-37); Albumin 4.6 gm/dL (3.2-5.2); Albumin/Globulin Ratio 1.4 (1.0-2.3); Alkaline Phosphatase 108 U/L (39-117); Bilirubin,Total 0.6 mg/dL (0.0-1.0); Calcium 9.3 mg/dl (8.6-10.4); Carbon Dioxide 22 mmol/L (22-30); Globulin 3.2 gm/dL (2.2-3.7); Glucose 148 mg/dL (70-105)
[2020-03-18 21:13] LABS: Blood Urea Nitrogen 39 mg/dl (8-23); Chloride 78 mmol/L (96-108); Glomerular Filtration Rate 20
[2020-03-18] MEDS ORDERED: morphine 2 MG/ML VIAL IV PRN (21:20)
[2020-03-18] MEDS ORDERED: PROMETHAZINE 25 MG/ML VIAL IM PRN (21:20)
[2020-03-18] MEDS: 0.9 % SODIUM CHLORIDE 1,000 ML IV SCH (23:10)
[2020-03-19] MEDS: 0.9 % SODIUM CHLORIDE 1,000 ML IV SCH ×3 (05:18→19:12)
[2020-03-19 08:21] LABS: ALT/SGPT 26 U/l (0-40); AST/SGOT 30 U/l (0-37); Albumin 3.8 gm/dL (3.2-5.2); Albumin/Globulin Ratio 1.4 (1.0-2.3); Alkaline Phosphatase 86 U/L (39-117); Bilirubin,Direct < 0.2 mg/dL (0.0-0.3); Bilirubin,Total 0.6 mg/dL (0.0-1.0); Blood Urea Nitrogen 36 mg/dl (8-23); Calcium 8.5 mg/dl (8.6-10.4); Carbon Dioxide 25 mmol/L (22-30); Globulin 2.8 gm/dL (2.2-3.7); Glomerular Filtration Rate 22; Glucose 102 mg/dL (70-105); Lactate Dehydrogenase 153 U/L (94-250); Triglycerides 85 mg/dl (<150); Uric Acid 9.5 mg/dL (2.5-8.0)
[2020-03-19 08:24] LABS: Chloride 86 mmol/L (96-108); Phosphorous 3.5 mg/dL (2.7-4.5)
[2020-03-19] MEDS ORDERED: PROMETHAZINE 25 MG/ML VIAL IV PRN ×2 (09:21→17:02)
--- NOTE | 2020-03-19 09:42 | Cat Scan Report ---
History: Diffuse abdominal pain, prior abdominal surgery with colectomy TECHNIQUE: The patient was imaged without oral or intravenous contrast from the diaphragm through the symphysis pubis. Sagittal and coronal reformats were created. The radiation exposure was limited using dose reduction technology. FINDINGS: Evaluation of abdominal organs without contrast is somewhat limited. The liver and spleen are normal in size and homogeneous. The gallbladder is been removed. The bile ducts are nondilated. There is no apparent mass or inflammation the pancreas. The adrenals are normal and symmetric. There is atrophy of the left kidney. The wall of the duodenum is thickened but the duodenum is not abnormally distended. There are few segments of mildly dilated jejunum. There is a surgically created pouch using small bowel anteriorly in the midabdomen extending towards the ileostomy in the left anterior abdominal wall. These patches are somewhat distended measure up to six 6 cm in AP dimension. The marie of the patches did not appear to be abnormally thickened or inflamed. There is equalization of the ileum deep in the pelvis. These fecal filled segments of ileum measure up to 3.5 cm. Most of the colon has been removed. There is a residual distal sigmoid and rectum which are filled with mucus. The ostomy in the left anterior abdominal wall appears normal without evidence of inflammation or obstruction. No ascites is present. There is edema hardening artifact in the pelvis created by multiple surgical clips and the metal hip prosthesis. Comparison the prior CT done on 02/24/20 shows the thickening of the wall of the duodenum is a chronic or recurrent finding. The dilatation of the small bowel has become greater today. IMPRESSION: Partial small bowel obstruction. This may be due to adhesions from the prior surgeries. Thickened wall of the duodenum which may be due to duodenitis. Dr. Ghosh was called with the results Interpreted and Authenticated by: Thang Swan 03/19/20
--- NOTE | 2020-03-19 09:51 | XRay Report ---
HISTORY: Nasogastric tube insertion for small bowel obstruction FINDINGS: There is a nasogastric tube in the body of the stomach pointing inferiorly. The sidehole is in the cardia. The stomach is decompressed. Small bowel is smaller in caliber and now compared with the preceding CT scan. No free intra-abdominal air is seen on the supine study. There is a metal loop recorder overlying the heart and descending aorta. IMPRESSION: Well-positioned nasogastric tube with improved small bowel obstruction Interpreted and Authenticated by: Tahng Swan 03/19/20
[2020-03-19] MEDS: ONDANSETRON 4 MG/2 ML VIAL IV PRN (09:55)
[2020-03-19] MEDS ORDERED: MAGNESIUM SULFATE 4 GM/100 ML BAG IV ONE (16:00)
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
[2020-03-19] MEDS ORDERED: ONDANSETRON 4 MG/2 ML VIAL IV PRN (17:02)
[2020-03-19] MEDS ORDERED: HYDROmorphone 1 MG/ML SYRINGE IV PRN (17:09)
[2020-03-20] MEDS: 0.9 % SODIUM CHLORIDE 1,000 ML IV SCH ×8 (01:34→23:48)
[2020-03-20] MEDS ORDERED: HYDROmorphone 1 MG/ML SYRINGE ONE (03:59)
[2020-03-20] MEDS ORDERED: PANTOPRAZOLE 40 MG VIAL IV SCH (07:30)
[2020-03-20] MEDS: ONDANSETRON 4 MG/2 ML VIAL IV PRN (07:48)
[2020-03-20 08:17] LABS: Basophils # (Auto) 0.02 K/mcL (0.00-0.30); Basophils % (Auto) 0.5 % (0.0-2.0); Eosinophils # (Auto) 0.06 K/mcL (0.00-0.70); Eosinophils % (Auto) 1.5 % (0.0-7.0); Granulocytes % (Auto) 62.2 % (38.0-78.0); Hematocrit 33.6 % (34.1-44.9); Hemoglobin 11.3 g/dL (11.2-15.7); Lymphocytes # (Auto) 0.94 K/mcL (1.50-4.80); Lymphocytes % (Auto) 22.9 % (15.5-49.0); Mean Cell Volume 87.5 fL (80.0-100.0); Mean Corpuscular HGB Conc 33.6 g/dL (31.0-36.0); Mean Platelet Volume 8.9 fL (7.4-10.4); Monocytes # (Auto) 0.53 K/mcL (0.10-0.90); Monocytes % (Auto) 12.9 % (1.0-12.0); Platelet Count 216 K/mcL (140-440); RBC 3.84 M/mcL (3.59-5.38); Red Cell Distribution Width 11.4 % (11.5-14.5); WBC 4.1 K/mcL (4.50-11.00)
[2020-03-20 08:28] LABS: ALT/SGPT 25 U/l (0-40); AST/SGOT 29 U/l (0-37); Albumin 3.5 gm/dL (3.2-5.2); Albumin/Globulin Ratio 1.3 (1.0-2.3); Alkaline Phosphatase 87 U/L (39-117); Bilirubin,Direct < 0.2 mg/dL (0.0-0.3); Bilirubin,Total 0.3 mg/dL (0.0-1.0); Calcium 8.4 mg/dl (8.6-10.4); Carbon Dioxide 20 mmol/L (22-30); Globulin 2.6 gm/dL (2.2-3.7); Glucose 88 mg/dL (70-105); Lactate Dehydrogenase 209 U/L (94-250); Phosphorous 3.5 mg/dL (2.7-4.5); Triglycerides 62 mg/dl (<150); Uric Acid 9.8 mg/dL (2.5-8.0)
[2020-03-20 08:30] LABS: Blood Urea Nitrogen 24 mg/dl (8-23); Chloride 97 mmol/L (96-108); Glomerular Filtration Rate 35
[2020-03-20] MEDS ORDERED: KETAMINE 100 MG/ML ML IV ONE (13:10)
[2020-03-20] MEDS ORDERED: GLYCOPYRROLATE 0.2 MG/ML VIAL IV ONE (13:10)
[2020-03-20] MEDS ORDERED: ONDANSETRON 4 MG/2 ML VIAL IV ONE (13:10)
[2020-03-20] MEDS ORDERED: LIDOCAINE HCL/PF 100 MG/5 ML SYRINGE IV ONE (13:10)
[2020-03-20] MEDS ORDERED: PROPOFOL 200 MG/20 ML VIAL IV ONE (13:10)
--- NOTE | 2020-03-20 13:43 | Brief Operative Note ---
Date of procedure: 03/20/20 Pre-op diagnosis: recurrent nausea and vomiting Post-op diagnosis: other (recurrent gastoduodenitis;gastroesophageal ulceration; duodenitis) Procedure: egd with biopsy Grafts/Implants: No Anesthesia: other (general) Findings: ulceration at g e junction with severe inflammation ;antral gastritis; duodenal inflammation Complications: none Surgeon: Heide Elliott Specimens Removed/Pathology: other (gastric mucosa biopsies) Condition: stable Disposition: same day
[2020-03-20] MEDS ORDERED: HYDROmorphone 1 MG/ML SYRINGE IV PRN (14:02)
[2020-03-20] MEDS ORDERED: PROMETHAZINE 25 MG/ML VIAL IV PRN (14:02)
[2020-03-20] MEDS ORDERED: ONDANSETRON 4 MG/2 ML VIAL IV PRN ×2 (14:02)
[2020-03-20] MEDS: PANTOPRAZOLE 40 MG VIAL IV SCH (16:23)
[2020-03-20] MEDS: SUCRALFATE 1 GM/10 ML ORAL.SUSP PO SCH ×2 (17:10→23:48)
[2020-03-20] MEDS: METOPROLOL TARTRATE 25 MG TABLET PO SCH (20:42)
[2020-03-20] MEDS: FLUDROCORTISONE 0.1 MG TABLET PO SCH (20:42)
[2020-03-20] MEDS ORDERED: METOPROLOL TARTRATE 25 MG TABLET PO SCH (21:00)
[2020-03-20] MEDS ORDERED: FLUDROCORTISONE 0.1 MG TABLET PO SCH (21:00)
[2020-03-21] MEDS: 0.9 % SODIUM CHLORIDE 1,000 ML IV SCH ×3 (05:39→15:54)
[2020-03-21] MEDS: SUCRALFATE 1 GM/10 ML ORAL.SUSP PO SCH ×4 (05:40→23:44)
[2020-03-21 07:05] LABS: Basophils # (Auto) 0 K/mcL (0.00-0.30); Basophils % (Auto) 0 % (0.0-2.0); Eosinophils # (Auto) 0 K/mcL (0.00-0.70); Eosinophils % (Auto) 0 % (0.0-7.0); Granulocytes % (Auto) 74.6 % (38.0-78.0); Hematocrit 28.5 % (34.1-44.9); Hemoglobin 9.7 g/dL (11.2-15.7); Lymphocytes % (Auto) 16.4 % (15.5-49.0); Mean Platelet Volume 8.9 fL (7.4-10.4); Monocytes # (Auto) 0.33 K/mcL (0.10-0.90); Platelet Count 167 K/mcL (140-440); RBC 3.24 M/mcL (3.59-5.38); Red Cell Distribution Width 11.4 % (11.5-14.5); WBC 3.7 K/mcL (4.50-11.00)
[2020-03-21] MEDS: PANTOPRAZOLE 40 MG VIAL IV SCH ×2 (07:28→17:33)
[2020-03-21 07:37] LABS: ALT/SGPT 19 U/l (0-40); AST/SGOT 21 U/l (0-37); Albumin 3.1 gm/dL (3.2-5.2); Albumin/Globulin Ratio 1.4 (1.0-2.3); Alkaline Phosphatase 70 U/L (39-117); Bilirubin,Direct < 0.2 mg/dL (0.0-0.3); Bilirubin,Total 0.2 mg/dL (0.0-1.0); Calcium 8.2 mg/dl (8.6-10.4); Carbon Dioxide 18 mmol/L (22-30); Chloride 102 mmol/L (96-108); Globulin 2.2 gm/dL (2.2-3.7); Glomerular Filtration Rate 38; Glucose 110 mg/dL (70-105); Lactate Dehydrogenase 140 U/L (94-250); Phosphorous 3.2 mg/dL (2.7-4.5); Triglycerides 58 mg/dl (<150); Uric Acid 9.1 mg/dL (2.5-8.0)
[2020-03-21 07:41] LABS: Blood Urea Nitrogen 15 mg/dl (8-23)
[2020-03-21] MEDS: METOPROLOL TARTRATE 25 MG TABLET PO SCH ×2 (08:16→21:21)
[2020-03-21] MEDS: amLODIPine 5 MG TABLET PO SCH (08:17)
[2020-03-21] MEDS: MAGNESIUM OXIDE 400 MG TABLET PO SCH (08:17)
[2020-03-21] MEDS: FLUDROCORTISONE 0.1 MG TABLET PO SCH ×2 (08:20→21:21)
[2020-03-21] MEDS ORDERED: MAGNESIUM SULFATE 32.48 MEQ in DEXTROSE 5% IN WATER 50 ML IV ONE (08:33)
[2020-03-21] MEDS ORDERED: POTASSIUM CHLORIDE 40 MEQ in DEXTROSE 5% IN WATER 500 ML IV ONE (08:34)
[2020-03-21] MEDS ORDERED: MAGNESIUM OXIDE 400 MG TABLET PO SCH (09:00)
[2020-03-21] MEDS ORDERED: amLODIPine 5 MG TABLET PO SCH (09:00)
--- NOTE | 2020-03-21 17:07 | General Surgery Progress Note ---
Subjective Patient reports: feels better, tolerating a regular diet, flatus, afebrile ( as) Narrative: Note initiated : 03/21/20 at 5:05 pm Service Date, if different from initiated Date: [] Patient: Lesvia Eduardo 79 y/o F admitted on 03/18/20 for Abdominal Pain. Chief Complaint: [patient states that she feels better .she is tolerating full diet without difficulty. Discussed with her the endoscopic findings ulcerations of the fundus and GE junction as well as the antrum. White blood count 3.7, hemoglobin 9.7, hematocrit 28.5, potassium 3.2, BUN 15, creatinine 1.3, magnesium 1.5.] Objective Temp Pulse Resp BP Pulse Ox 97.9 F 50 L 18 127/62 99 03/21/20 11:37 03/21/20 11:37 03/21/20 11:37 03/21/20 11:37 03/21/20 11:37 - Additional Data Intake & Output - Last 24 hours: Intake & Output 03/19/20 03/20/20 03/21/20 03/22/20 05:59 05:59 05:59 05:59 Intake Total 1420 3055 6266 1320 Output Total 700 3750 2770 1750 Balance 720 -695 3496 -430 Weight 132 lb 6.4 oz 133 lb 8 oz 136 lb - General physical appearance well developed, well nourished, no distress - Eyes PERRL, normal ocular movement - ENT normal pinna, normal nares, normal mucosa, decreased hearing - Neck no masses, no bruits, trachea midline, no lymphadenopathy, no venous distension - Respiratory normal expansion, normal respiratory effort, clear to auscultation - Cardiovascular Cardiovascular exam: Present: normal rate and rhythm - Abdomen non tender, bowel sounds (present), surgical scars (none), masses (none) - Integumentary no rash, no growths, no abnormal pigmentation - Neurologic normal coordination, normal sensation - Musculoskeletal normal gait, normal posture - Psychiatric oriented to time, oriented to person, oriented to place, speech is normal, memory intact - Labs 03/21/20 05:05 03/21/20 05:05 Diabetes panel 03/21/20 Range/Units 05:05 Sodium 134 (133-145) mmol/L Potassium 3.2 L (3.3-5.1) mmol/L Chloride 102 (96-108) mmol/L Carbon Dioxide 18 L (22-30) mmol/L BUN 15 (8-23) mg/dl Creatinine 1.3 H (0.6-1.1) mg/dl Glucose 110 H (70-105) mg/dL Calcium 8.2 L (8.6-10.4) mg/dl AST 21 (0-37) U/l ALT 19 (0-40) U/l Alkaline Phosphatase 70 (39-117) U/L Total Protein 5.3 L (5.9-8.4) gm/dL Albumin 3.1 L (3.2-5.2) gm/dL Triglycerides 58 (<150) mg/dl Calcium panel 03/21/20 Range/Units 05:05 Calcium 8.2 L (8.6-10.4) mg/dl Phosphorus 3.2 (2.7-4.5) mg/dL Albumin 3.1 L (3.2-5.2) gm/dL Pituitary panel 03/21/20 Range/Units 05:05 Sodium 134 (133-145) mmol/L Potassium 3.2 L (3.3-5.1) mmol/L Chloride 102 (96-108) mmol/L Carbon Dioxide 18 L (22-30) mmol/L BUN 15 (8-23) mg/dl Creatinine 1.3 H (0.6-1.1) mg/dl Glucose 110 H (70-105) mg/dL Calcium 8.2 L (8.6-10.4) mg/dl Adrenal panel 03/21/20 Range/Units 05:05 Sodium 134 (133-145) mmol/L Potassium 3.2 L (3.3-5.1) mmol/L Chloride 102 (96-108) mmol/L Carbon Dioxide 18 L (22-30) mmol/L BUN 15 (8-23) mg/dl Creatinine 1.3 H (0.6-1.1) mg/dl Glucose 110 H (70-105) mg/dL Calcium 8.2 L (8.6-10.4) mg/dl Total Bilirubin 0.2 (0.0-1.0) mg/dL AST 21 (0-37) U/l ALT 19 (0-40) U/l Alkaline Phosphatase 70 (39-117) U/L Total Protein 5.3 L (5.9-8.4) gm/dL Albumin 3.1 L (3.2-5.2) gm/dL Assessment and Plan (1) Acute on chronic renal failure Status: Acute Assessment and plan: Clinical status has returned to normal Current Visit: No (2) Gastroduodenitis without bleeding Status: Acute Assessment and plan: Clinical evidence of GE junction ulcer and fundic ulcer with moderate antral gastritis clinically improved Current Visit: No (3) GERD (gastroesophageal reflux disease) Status: Chronic Assessment and plan: Will continue present therapy with plans for discharge tomorrow Current Visit: No - Time Spent With Patient Total time spent is greater than 50% in coordination of care (as documented) at patient's floor/unit and/or counseling patient:
[2020-03-22] MEDS: SUCRALFATE 1 GM/10 ML ORAL.SUSP PO SCH ×2 (05:16→12:03)
[2020-03-22 06:57] LABS: Basophils # (Auto) 0.03 K/mcL (0.00-0.30); Basophils % (Auto) 0.6 % (0.0-2.0); Eosinophils # (Auto) 0.08 K/mcL (0.00-0.70); Eosinophils % (Auto) 1.6 % (0.0-7.0); Granulocytes % (Auto) 70.6 % (38.0-78.0); Hemoglobin 10.3 g/dL (11.2-15.7); Lymphocytes # (Auto) 0.88 K/mcL (1.50-4.80); Mean Cell Volume 88.8 fL (80.0-100.0); Mean Corpuscular HGB Conc 33.2 g/dL (31.0-36.0); Mean Platelet Volume 8.8 fL (7.4-10.4); Monocytes # (Auto) 0.45 K/mcL (0.10-0.90); Monocytes % (Auto) 9.2 % (1.0-12.0); Platelet Count 190 K/mcL (140-440); RBC 3.49 M/mcL (3.59-5.38); Red Cell Distribution Width 11.7 % (11.5-14.5); WBC 4.9 K/mcL (4.50-11.00)
[2020-03-22 07:07] LABS: ALT/SGPT 18 U/l (0-40); AST/SGOT 22 U/l (0-37); Albumin 3.3 gm/dL (3.2-5.2); Albumin/Globulin Ratio 1.4 (1.0-2.3); Alkaline Phosphatase 79 U/L (39-117); Bilirubin,Direct < 0.2 mg/dL (0.0-0.3); Bilirubin,Total 0.3 mg/dL (0.0-1.0); Blood Urea Nitrogen 13 mg/dl (8-23); Calcium 8.6 mg/dl (8.6-10.4); Carbon Dioxide 19 mmol/L (22-30); Chloride 102 mmol/L (96-108); Globulin 2.3 gm/dL (2.2-3.7); Glomerular Filtration Rate 35; Glucose 84 mg/dL (70-105); Lactate Dehydrogenase 173 U/L (94-250); Triglycerides 61 mg/dl (<150); Uric Acid 9.6 mg/dL (2.5-8.0)
[2020-03-22 07:09] LABS: Phosphorous 1.8 mg/dL (2.7-4.5)
[2020-03-22] MEDS: METOPROLOL TARTRATE 25 MG TABLET PO SCH (08:38)
[2020-03-22] MEDS: MAGNESIUM OXIDE 400 MG TABLET PO SCH (08:39)
[2020-03-22] MEDS: FLUDROCORTISONE 0.1 MG TABLET PO SCH (08:39)
[2020-03-22] MEDS: amLODIPine 5 MG TABLET PO SCH (08:39)
[2020-03-22] MEDS: PANTOPRAZOLE 40 MG VIAL IV SCH (08:40)
--- NOTE | 2020-03-22 13:22 | Surgical Pathology Report ---
HISTOLOGY SPECIMEN MICROSCOPIC DIAGNOSIS SPECIMEN A - STOMACH, BIOPSY: -- MILD CHRONIC GASTRITIS. -- NO HELICOBACTER TYPE ORGANISMS IDENTIFIED (ALCIAN YELLOW STAIN WITH ADEQUATE TECHNICAL CONTROL). SPECIMEN B - ESOPHAGUS, GE JUNCTION, BIOPSY: -- GASTROESOPHAGEAL JUNCTIONAL MUCOSA WITH SUPERFICIAL MUCOSAL EROSION AND MILD CHRONIC INFLAMMATION. -- NO INTESTINAL METAPLASIA IDENTIFIED (ALCIAN BLUE STAIN WITH ADEQUATE TECHNICAL CONTROL). (RLF:sln) CLINICAL HISTORY Recurrent nausea and vomiting. PROCEDURAL IMPRESSION Recurrent gastroduodenitis; gastroesophageal ulceration; duodenitis. GROSS DESCRIPTION Specimen A: Received in formalin labeled gastric biopsy, are two chavez tissue fragments 0.2 and 0.3 cm. Entirely submitted - one cassette. Specimen B: Received in formalin labeled GE junction biopsy, are two reyez-chavez tissue fragments less than 0.1 and 0.4 cm. Entirely submitted - one cassette. (SCB:sln) Electronically Signed by: Ashley Hay M.D.
--- NOTE | 2020-03-22 15:13 | Discharge Summary ---
Providers - Providers Patient information: Note initiated : 03/22/20 at 3:09 pm Service Date, if different from initiated Date: [] Patient: Lesvia Eduardo 79 y/o F admitted on 03/18/20 for Abdominal Pain. Chief Complaint: [] Date of admission: 04/18/20 Discharge date: 03/22/20 Attending physician: Heide Elliott Hospitalization Hospital Course: 1-year-old female admitted for evaluation of recurrent nausea vomiting with dehydration. She has a long history of chronic adhesive disease and partial intestinal obstruction. She was last admitted to this facility on 07 Mar 2020 epigastric pain nausea vomiting. CT showed inflammation and thickening of the duodenum. She rapidly decompressed and was discharged home. She was seen in the office 2 days prior to readmission and at that time she was tolerating a regular diet and having regular bowel movements through her stoma. On the day of admission she awakened with pain across her upper abdomen with recurrent nausea vomiting. She never had any decrease in output through her stoma. Patient was readmitted and started on IV therapy with plans for upper endoscopy. She had upper endoscopy on 20 March. This showed multiple ulcerations of the GE junction fundus and antrum of the stomach. There was also mild inflammation of the duodenum. Biopsies were taken. Patient has been started on PPI therapy with sucralfate. She is doing well and is now stable for discharge home. She has mild decrease in potassium and phosphorus. She will be given tablets to take at home to replace this. Discharge diagnosis: gastroesophageal reflux with ulceration Secondary discharge diagnosis: Gastric ulcer Acute duodenitis Chronic kidney disease stage III Hearing loss Degenerative arthritis Reason for admission: abdominal pain nausea vomiting Procedures: Esophagogastroduodenoscopy with biopsies on 18 Feb 2020 Complications: None Exam Temp Pulse Resp BP Pulse Ox 97.9 F 61 18 146/70 99 03/22/20 12:00 03/22/20 12:00 03/22/20 12:00 03/22/20 12:03/22/20 12:00 - General physical appearance well developed, well nourished, no distress - Eyes PERRL, normal ocular movement - ENT normal pinna, normal nares, normal mucosa, no congestion, decreased hearing - Head Head exam IM: Present: atraumatic, normocephalic - Neck no masses, no bruits, trachea midline, no lymphadenopathy, no venous distension - Cardiovascular Cardiovascular exam IM: Present: normal rate and rhythm - Respiratory normal expansion, normal respiratory effort, clear to percussion, clear to auscultation - Abdomen Abdomen: Present: soft, non tender (no abdominal tenderness at this time), bowel sounds, distended ( no distention; stoma is working well) Hernia: Present: none - Genitourinary Present: normal external genitalia - Integumentary Present: no rash, no growths, no abnormal pigmentation - Neurologic Present: normal coordination, normal sensation - Musculoskeletal Present: normal gait, normal posture - Psychiatric Present: oriented to time, oriented to person, oriented to place, speech is normal, memory intact Discharge Plan - Patient/Caregiver Discharge Instructions Activity: increase activity as tolerated Diet: Regular Diet Prescriptions: Sucralfate [Carafate] 1 gm PO Q6 #120 oral.susp Transmission Status: Pending to [facility] Pantoprazole [Protonix] 40 mg PO BIDAC #60 vial Transmission Status: Pending to [facility] - Follow up Plan Follow up with: Opal Martin MD [Primary Care Provider] - Heide Elliott MD [Physician] - 04/06/20 (Contact the office to make an appointment in 2 weeks) Disposition: Home, Self-Care Prognosis: Good Rehab Potential: Good I certify that the patient requires SNF services.: No Overall status at discharge: patient is progressing back to baseline Pending Studies Resuscitation Status Full Code Diet GI Soft/Transitional Start Fri 2 1642 Amlodipine Besylate (Norvasc) 2.5 mg PO DAILY [facility] Last Admin: 03/22/20 08:39 Dose: 2.5 mg Documented by: Admin: 03/21/20 08:17 Dose: 2.5 mg Documented by: LEATHA Fludrocortisone Acetate (Florinef) 0.1 mg PO BID [facility] Last Admin: 03/22/20 08:39 Dose: 0.1 mg Documented by: Admin: 03/21/20 21:21 Dose: 0.1 mg Documented by: Admin: 03/21/20 08:20 Dose: 0.1 mg Documented by: Admin: 03/20/20 20:42 Dose: 0.1 mg Documented by: EDINSON Magnesium Oxide (Magnesium Oxide) 400 mg PO DAILY [facility] Last Admin: 03/22/20 08:39 Dose: 400 mg Documented by: Admin: 03/21/20 08:17 Dose: 400 mg Documented by: LEATHA Metoprolol Tartrate (Lopressor) 12.5 mg PO BID [facility] Admin: 03/22/20 08:38 Dose: 12.5 mg Documented by: Admin: 03/21/20 21:21 Dose: 12.5 mg Documented by: Admin: 03/21/20 08:16 Dose: 12.5 mg Documented by: Admin: 03/20/20 20:42 Dose: 12.5 mg Documented by: EDINSON Pantoprazole Sodium (Protonix) 40 mg IV BIDAC [facility] Admin: 03/22/20 08:40 Dose: 40 mg Documented by: Admin: 03/21/20 17:33 Dose: 40 mg Documented by: Admin: 03/21/20 07:28 Dose: 40 mg Documented by: CLAUDETTEORGAN Admin: 03/20/20 16:23 Dose: 40 mg Documented by: ROXANNA Sucralfate (Carafate) 1 gm PO Q6 [facility] Admin: 03/22/20 12:03 Dose: 1 gm Documented by: CLAUDETTEORGAN Admin: 03/22/20 05:16 Dose: 1 gm Documented by: Admin: 03/21/20 23:44 Dose: 1 gm Documented by: Admin: 03/21/20 17:33 Dose: 1 gm Documented by: Admin: 03/21/20 11:33 Dose: 1 gm Documented by: Admin: 03/21/20 05:40 Dose: 1 gm Documented by: Admin: 03/20/20 23:48 Dose: 1 gm Documented by: Admin: 03/20/20 17:10 Dose: 1 gm Documented by: ROXANNA Shift Summary 03/22/20 03:14 Shift Summary by Lashanda Curtis Uneventful night. Pt is A&O able to make needs known. Using call light. SL x2. Up at dez in room. Tolerating diet, denies pain N/V. Pt should discharge home today. Will update with verbal report. Selected Entries 03/21/20 18:35 03/21/20 23:44 Temperature 97.6 F 97.6 F Blood Pressure [Left Arm] 156/70 160/69 Laboratory Tests 03/19/20 03/20/20 03/20/20 07:21 05:20 05:20 WBC 4.1 L Potassium 3.4 Creatinine 2.1 H 1.4 H Calcium Magnesium 03/21/20 03/21/20 05:05 05:05 WBC 3.7 L Potassium 3.2 L Creatinine 1.3 H Calcium 8.2 L Magnesium 1.5 L Initialized on 03/22/20 03:14 - END OF NOTE
--- NOTE | 2020-04-04 12:51 | Operative Note ---
DATE OF OPERATION: 03/20/2020 PREOPERATIVE DIAGNOSES: Recurrent nausea and vomiting. POSTOPERATIVE DIAGNOSES: Recurrent gastroduodenitis and gastroesophageal ulceration. PROCEDURE: Esophagogastroduodenoscopy with biopsies. SURGEON: Heide Elliott M.D. FINDINGS: Ulceration at the GE junction with severe inflammation, antral gastritis, and duodenal inflammation. DESCRIPTION OF PROCEDURE: Under general anesthesia, the patient was turned to the left lateral decubitus position. A timeout procedure was carried out as per protocol. Bite block was placed. Scope was introduced through the bite block into the retropharynx. The esophagus was normal down to the GE junction. She had normal peristaltic pattern. At the GE junction, there was moderately-severe inflammation with ulceration on the fundic side of the GE junction but not across the GE junction. Biopsies were taken. There was diffuse inflammation at the fundus. This inflammation extended to the antrum. Multiple biopsies were taken for pathology and for CLOtest. Pylorus opened appropriately. There was no channel ulcer. First and second portions of the duodenum showed mild inflammation without ulceration or erosions. Third portion of the duodenum was normal. Scope was pulled back and retroflex view was done. The previously-biopsied sites were noted and were unremarkable. No other pathology was noted. Air was suctioned from the stomach and the scope was removed. The patient tolerated the procedure well. She was awakened and returned to the day surgery area in stable, satisfactory condition. LCS:johanne Job ID: [id number] Doc ID: [id number] Heide Elliott M.D.
== END 2020-03-22 16:20 | disposition home or self-care (01) | DRG 384 ==
LOC: ED 19:18 → MEDSUR 23:01
PROVIDERS: ADMIT Family Medicine Adult Medicine; ATTEND Family Medicine Adult Medicine

== ENCOUNTER 2020-03-22 22:42 | Inpatient (IN) ==
[2020-03-22] MEDS ORDERED: HYDROmorphone 0.5 MG/0.5 ML SYRINGE IV PRN (22:54)
[2020-03-22] MEDS ORDERED: ONDANSETRON 4 MG/2 ML VIAL IV ONE (22:54)
[2020-03-22] MEDS ORDERED: PANTOPRAZOLE 40 MG VIAL IV ONE (22:54)
[2020-03-22] MEDS ORDERED: 0.9 % SODIUM CHLORIDE 1,000 ML IV ONE (22:54)
--- NOTE | 2020-03-22 23:51 | Emergency Department Note ---
Abdominal Pain HPI - General Chief Complaint: Abdominal Pain Stated Complaint: stomach pain, nausea Time Seen by Provider: 03/22/20 22:54 Source: patient Mode of arrival: ambulatory Limitations: no limitations - History of Present Illness HPI Narrative: 79-year-old female was released from the hospital at 5 PM today comes back after eating dinner for severe nausea and vomiting. She has a history of ulcerative colitis and has a colostomy in place. Apparently she had a small bowel obstruction and was in the hospital under the care of Dr. Steven Elliott but she had improved to the point where she could be discharged. No fever but she is actively vomiting here. She vomited up her medicines - Related Data Home Medications Medication Instructions Recorded Confirmed Fludrocortisone [Florinef] 0.1 mg PO BID 10/01/19 03/22/20 Multivit with Calcium,Iron,Min 1 each PO DAILY 10/01/19 03/22/20 [One Daily Women's] Omeprazole [Prilosec] 20 mg PO BID 01/13/20 03/22/20 Magnesium Oxide [Mag-Oxide 400 mg PO DAILY 03/06/20 03/22/20 Magnesium] Non Formulary Medication [Pill 1 - 3 each PO PRN PRN 03/06/20 03/22/20 Cutter] Sodium Bicarbonate 1,300 mg PO TID 03/06/20 03/22/20 amLODIPine [Norvasc] 2.5 mg PO DAILY 03/06/20 03/22/20 Previous Rx's Medication Instructions Recorded Metoprolol Tartrate [Lopressor] 12.5 mg PO BID #30 tab 01/15/20 Pantoprazole [Protonix] 40 mg PO BIDAC #60 tab 03/22/20 Sucralfate [Carafate] 1 gm PO Q6 #120 oral.susp 03/22/20 Allergies Allergy/AdvReac Type Severity Reaction Status Date / Time No Known Drug Allergies Allergy Verified 03/18/20 21:41 Review of Systems All systems ED: reviewed and negative except as stated. Abdominal Pain PMH - Past Medical History Attestation: Yes: The following information was validated with the patient. PMF Narrative: Family History (Last Updated 03/16/20 @ 09:49 by Lazraa Montes De Oca CMA) Other No pertinent family history Medical History (Last Reviewed 03/16/20 @ 09:44 by Lazara Montes De Oca CMA) Small bowel obstruction (Acute) SBO (small bowel obstruction) (Acute) Past Surgical History (Last Updated 03/16/20 @ 09:48 by Lazara Montes De Oca CMA) History of cholecystectomy (Acute) History of hernia repair (Acute) History of ovarian cystectomy (Acute) History of surgery (Acute) History of total colectomy (Acute) History of total hip replacement (Acute) Medical history: Reports: kidney stones, migraine, osteoporosis, renal disease Family history: Reports: no significant family history - Social History Smoking status: Never smoker Alcohol use: Reports: Occasionally Drug use: Reports: none Physical Exam Noted gross hearing loss with hearing aid in place on the left ear. Normocephalic atraumatic. Conjunctive are mildly injected bilaterally without drainage. Extraocular movements are intact pupils are equal and reactive. No nasal discharge or congestion. Oropharynx is pink and moist. Tongue is midline. Heart is regular rate and rhythm no murmur appreciated. Lungs are clear to auscultation bilaterally without rales rhonchi or respiratory distress. However she does have a mild end expiratory wheeze. However she says she does not have any shortness of breath or trouble breathing so suspect this is chronic. Abdomen is soft and diffusely tender with lots of scar tissue from previous surgeries. Colostomy bag in place with liquid stool in the left lower quadrant. It is yellowish but I do not see any blood. No pedal edema. She is alert oriented able to answer questions appropriately. Reasonable historian Limitations: no limitations Course Vital Signs Temperature 97.2 F 03/22/20 22:43 Pulse Rate 107 H 03/22/20 22:43 Respiratory Rate 16 03/22/20 22:43 Blood Pressure 169/98 03/22/20 22:43 Pulse Oximetry (%) 99 03/22/20 22:43 Temperature 97.2 F 03/22/20 22:43 Pulse Rate 102 H 03/23/20 01:10 Respiratory Rate 16 03/22/20 22:43 Blood Pressure 138/98 03/23/20 01:10 Pulse Oximetry (%) 91 03/23/20 01:10 Abdominal Pain - Lab Data Lab results reviewed: Yes I reviewed the patient's lab results. Result diagrams: 03/22/20 23:02 03/22/20 23:02 Lab Results 06/01/0603/22/20 03/22/20 Range/Units 23:02 23:02 23:02 WBC 9.5 (4.50-11.00) K/mcL RBC 4.00 (3.59-5.38) M/mcL Hgb 11.8 (11.2-15.7) g/dL Hct 34.6 (34.1-44.9) % MCV 86.5 (80.0-100.0) fL MCH 29.5 (26.0-34.0) pg MCHC 34.1 (31.0-36.0) g/dL RDW 11.6 (11.5-14.5) % Plt Count 251 (140-440) K/mcL MPV 8.8 (7.4-10.4) fL Gran % 74.8 (38.0-78.0) % Lymph % (Auto) 18.1 (15.5-49.0) % [place] % (Auto) 6.3 (1.0-12.0) % Eos % (Auto) 0.6 (0.0-7.0) % Baso % (Auto) 0.2 (0.0-2.0) % Gran # 7.11 (1.80-8.00) K/mcL Lymph # (Auto) 1.72 (1.50-4.80) K/mcL [place] # (Auto) 0.60 (0.10-0.90) K/mcL Eos # (Auto) 0.06 (0.00-0.70) K/mcL Baso # (Auto) 0.02 (0.00-0.30) K/mcL VBG Lactic Acid 1.6 (0.5-2.0) mmol/L Sodium 131 L (133-145) mmol/L Potassium 3.1 L (3.3-5.1) mmol/L Chloride 96 (96-108) mmol/L Carbon Dioxide 17 L (22-30) mmol/L Anion Gap 18.0 H (8-16) BUN 15 (8-23) mg/dl Creatinine 1.6 H (0.6-1.1) mg/dl GFR Calculation 30 Glucose 132 H (70-105) mg/dL Calcium 9.3 (8.6-10.4) mg/dl Total Bilirubin 0.5 (0.0-1.0) mg/dL AST 29 (0-37) U/l ALT 23 (0-40) U/l Alkaline Phosphatase 95 (39-117) U/L Total Protein 6.7 (5.9-8.4) gm/dL Albumin 3.9 (3.2-5.2) gm/dL Globulin 2.8 (2.2-3.7) gm/dL Albumin/Globulin Ratio 1.4 (1.0-2.3) Lipase 69 H (7-60) U/L - Radiology Data Radiology results reviewed: Yes I reviewed the patient's radiology results. X-ray shows small bowel with air-fluid levels and distended stomach. X-ray after nasogastric tube placement shows an adequate position Disposition Pt seen by BOOKING CLERK/PA only: No Clinical Impression: Small bowel obstruction, Hypokalemia due to excessive gastrointestinal loss of potassium Summary: Suspected relapse of small bowel obstruction. She continues to have liquid stool in her colostomy bag. We will start IV fluid antiemetics and pain medicine. Ordered laboratory and x-ray noted repeat small bowel obstruction on abdominal x-ray series with air-fluid levels. NG tube is ordered NG tube is in good position. Placed to low intermittent suction Ordered IV potassium replacement Discussed case with Dr. Steven Elliott. He agreed to accept the patient. I will go ahead and write transition orders Disposition: Xfer As Inpt ([facility]) Condition: Serious Referrals: Opal Martin MD [Primary Care Provider] - Steven Elliott MD [Physician] -
[2020-03-22 23:58] LABS: Basophils # (Auto) 0.02 K/mcL (0.00-0.30); Basophils % (Auto) 0.2 % (0.0-2.0); Eosinophils # (Auto) 0.06 K/mcL (0.00-0.70); Eosinophils % (Auto) 0.6 % (0.0-7.0); Granulocytes % (Auto) 74.8 % (38.0-78.0); Hematocrit 34.6 % (34.1-44.9); Hemoglobin 11.8 g/dL (11.2-15.7); Lymphocytes # (Auto) 1.72 K/mcL (1.50-4.80); Lymphocytes % (Auto) 18.1 % (15.5-49.0); Mean Cell Volume 86.5 fL (80.0-100.0); Mean Corpuscular HGB Conc 34.1 g/dL (31.0-36.0); Mean Platelet Volume 8.8 fL (7.4-10.4); Monocytes % (Auto) 6.3 % (1.0-12.0); Platelet Count 251 K/mcL (140-440); Red Cell Distribution Width 11.6 % (11.5-14.5); WBC 9.5 K/mcL (4.50-11.00)
[2020-03-23 00:15] LABS: ALT/SGPT 23 U/l (0-40); AST/SGOT 29 U/l (0-37); Albumin 3.9 gm/dL (3.2-5.2); Albumin/Globulin Ratio 1.4 (1.0-2.3); Alkaline Phosphatase 95 U/L (39-117); Bilirubin,Total 0.5 mg/dL (0.0-1.0); Blood Urea Nitrogen 15 mg/dl (8-23); Calcium 9.3 mg/dl (8.6-10.4); Carbon Dioxide 17 mmol/L (22-30); Chloride 96 mmol/L (96-108); Globulin 2.8 gm/dL (2.2-3.7); Glomerular Filtration Rate 30; Glucose 132 mg/dL (70-105)
[2020-03-23] MEDS ORDERED: POTASSIUM CHLORIDE 20 MEQ in DEXTROSE 5% IN WATER 250 ML IV ONE (00:34)
[2020-03-23] MEDS ORDERED: ONDANSETRON 4 MG/2 ML VIAL IV PRN (01:17)
[2020-03-23] MEDS ORDERED: morphine 2 MG/ML VIAL IV PRN (01:20)
--- NOTE | 2020-03-23 03:39 | XRay Report ---
CLINICAL INFORMATION: SBO COMPARISON: 03/18/2020 FINDINGS: The stomach and multiple loops of proximal/central small bowel are moderately dilated with air-fluid levels. The distal small bowel and colon are decompressed. No free air, pathologic calcification, soft tissue mass or organomegaly. IMPRESSION: Recurrent mid small bowel obstruction Interpreted and Authenticated by: Chidi Dias 03/23/20
--- NOTE | 2020-03-23 03:42 | XRay Report ---
CLINICAL INFORMATION: ng tube placement COMPARISON: None. FINDINGS: NG tube overlies the gastric fundus. Stomach and proximal /mid small bowel are moderately dilated compatible with recurrent mid small bowel obstruction. Distal small bowel and colon are decompressed. No free air. IMPRESSION: Mid small bowel obstruction pattern. NG tube tip overlies the gastric fundus. Consider advancing the tube 10 cm Interpreted and Authenticated by: Chidi Dias 03/23/20
[2020-03-23] MEDS: 0.9 % SODIUM CHLORIDE 1,000 ML IV SCH ×2 (03:51→13:46)
[2020-03-23] MEDS ORDERED: POTASSIUM PHOSPHATE 40 MEQ in DEXTROSE 5% IN WATER 500 ML IV ONE (12:38)
[2020-03-23] MEDS ORDERED: DIATRIZOATE MEGLU/DIATRIZO SOD 30 ML BOTTLE PO ONE (14:42)
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
--- NOTE | 2020-03-23 16:44 | XRay Report ---
CLINICAL INFORMATION: f/u of dilation of proximal bowel and stomach TECHNIQUE: Water-soluble contrast was ingested while fluoroscopic imaging and recording of the esophagus during deglutition and also multiple into the stomach and small bowel. Total fluoroscopy time one minute. FINDINGS: The esophagus is normal in contour and caliber. No evidence of aspiration. A few discoordinated tertiary contraction disrupt the primary peristaltic wave compatible with presbyesophagus. The stomach is normal size and unremarkable flow patterns no gastric lesion. Prompt gastric emptying into normal-appearing duodenal sweep appreciated IMPRESSION: Mild presbyesophagus. The esophagus stomach and duodenum otherwise normal Interpreted and Authenticated by: Chidi Dias 03/23/20
[2020-03-23] MEDS: PANTOPRAZOLE 40 MG VIAL IV SCH (17:20)
[2020-03-23] MEDS: SUCRALFATE 1 GM/10 ML ORAL.SUSP PO SCH (17:24)
[2020-03-23] MEDS: METOCLOPRAMIDE 10 MG/2 ML VIAL IV SCH (17:24)
[2020-03-24] MEDS: SUCRALFATE 1 GM/10 ML ORAL.SUSP PO SCH ×4 (00:15→17:05)
[2020-03-24] MEDS: METOCLOPRAMIDE 10 MG/2 ML VIAL IV SCH ×3 (00:15→12:32)
[2020-03-24] MEDS: 0.9 % SODIUM CHLORIDE 1,000 ML IV SCH ×3 (01:20→17:30)
[2020-03-24 07:10] LABS: Basophils # (Auto) 0.02 K/mcL (0.00-0.30); Basophils % (Auto) 0.5 % (0.0-2.0); Eosinophils # (Auto) 0.11 K/mcL (0.00-0.70); Eosinophils % (Auto) 2.9 % (0.0-7.0); Granulocytes % (Auto) 55.3 % (38.0-78.0); Hematocrit 34.4 % (34.1-44.9); Hemoglobin 11.6 g/dL (11.2-15.7); Lymphocytes # (Auto) 1.01 K/mcL (1.50-4.80); Lymphocytes % (Auto) 26.9 % (15.5-49.0); Mean Cell Volume 88.7 fL (80.0-100.0); Mean Corpuscular HGB Conc 33.7 g/dL (31.0-36.0); Mean Platelet Volume 8.6 fL (7.4-10.4); Monocytes # (Auto) 0.54 K/mcL (0.10-0.90); Monocytes % (Auto) 14.4 % (1.0-12.0); Platelet Count 203 K/mcL (140-440); RBC 3.88 M/mcL (3.59-5.38); Red Cell Distribution Width 11.9 % (11.5-14.5); WBC 3.8 K/mcL (4.50-11.00)
[2020-03-24 07:32] LABS: ALT/SGPT 17 U/l (0-40); AST/SGOT 22 U/l (0-37); Albumin 3.4 gm/dL (3.2-5.2); Albumin/Globulin Ratio 1.4 (1.0-2.3); Alkaline Phosphatase 80 U/L (39-117); Bilirubin,Direct < 0.2 mg/dL (0.0-0.3); Bilirubin,Total 0.5 mg/dL (0.0-1.0); Blood Urea Nitrogen 13 mg/dl (8-23); Calcium 8.3 mg/dl (8.6-10.4); Carbon Dioxide 20 mmol/L (22-30); Chloride 104 mmol/L (96-108); Globulin 2.4 gm/dL (2.2-3.7); Glomerular Filtration Rate 35; Glucose 88 mg/dL (70-105); Lactate Dehydrogenase 191 U/L (94-250); Triglycerides 75 mg/dl (<150); Uric Acid 9.9 mg/dL (2.5-8.0)
[2020-03-24 07:36] LABS: Phosphorous 3.3 mg/dL (2.7-4.5)
[2020-03-24] MEDS: PANTOPRAZOLE 40 MG VIAL IV SCH ×2 (07:41→17:06)
[2020-03-24] MEDS ORDERED: POTASSIUM PHOSPHATE 40 MEQ in DEXTROSE 5% IN WATER 500 ML IV ONE (07:55)
[2020-03-24] MEDS ORDERED: MAGNESIUM SULFATE 32.48 MEQ in DEXTROSE 5% IN WATER 50 ML IV ONE (07:56)
--- NOTE | 2020-03-24 08:03 | XRay Report ---
CLINICAL INFORMATION: FOLLOW -UP OF SMALL BOWEL OBSTRUCTION COMPARISON: 03/23/2012 FINDINGS: Stool gas pattern is unremarkable. All the enteric contrast, administered from previous day's upper GI, has cleared. No free air, soft tissue mass or organomegaly. No pathologic calcification. IMPRESSION: Normal exam Interpreted and Authenticated by: Chidi Dias 03/24/20
--- NOTE | 2020-03-24 13:56 | Discharge Summary ---
Providers - Providers Patient information: Note initiated : 03/24/20 at 1:53 pm Service Date, if different from initiated Date: [] Patient: Lesvia Eduardo 79 y/o F admitted on 03/23/20 for stomach pain, nausea. Chief Complaint: [] Date of admission: 03/23/20 Discharge date: 03/24/20 Attending physician: Heide Elliott Hospitalization Hospital Course: 79-year-old female readmitted for evaluation of recurrent nausea and vomiting with dehydration. She was recently discharged earlier on the day of readmission after a four-day stay. Her symptoms. She states that as soon as she returned home that she developed nausea and had multiple episodes of vomiting. She was seen in the emergency room and plain films revealed dilated stomach and proximal bowel. She was placed on nasogastric decompression and scheduled for an upper GI series. Upper GI series shows that she has mild presbyesophagus, normal- appearing stomach and duodenum. She had transient through her small bowel in less than 2 hours ruling out obstruction. She was continued on pantoprazole and Carafate. She was started on metoclopramide to facilitate gastric and duodenal emptying. She is now tolerating diet without difficulty. White blood count is 3.8, hemoglobin 11.6, hematocrit 34.4, creatinine 1.4, BUN 13. Discharge diagnosis: recurrent nausea and vomiting Secondary discharge diagnosis: Gastroesophageal ulcer Gastroduodenitis Chronic kidney disease stage III Hearing loss Degenerative arthritis Reason for admission: recurrent nausea and vomiting Procedures: None Pertinent studies/significant findings: Upper GI series Complications: None Exam Temp Pulse Resp BP Pulse Ox 98.0 F 88 16 136/70 92 03/24/20 08:00 03/24/20 08:00 03/24/20 08:00 03/24/20 08:00 03/24/20 08:00 - General physical appearance well developed, well nourished, no distress - Eyes PERRL, normal ocular movement - ENT normal pinna, normal nares, normal mucosa, no congestion, decreased hearing - Head Head exam IM: Present: atraumatic, normocephalic - Neck no masses, no bruits, trachea midline, no lymphadenopathy, no venous distension - Cardiovascular Cardiovascular exam IM: Present: normal rate and rhythm - Respiratory normal expansion, normal respiratory effort, clear to percussion, clear to auscultation - Abdomen Abdomen: Present: soft, non tender ( no tenderness noted), bowel sounds, surgical scars (multiple healed surgical scars) Hernia: Present: none - Genitourinary Present: normal external genitalia - Integumentary Present: no rash, no growths, no abnormal pigmentation - Neurologic Present: normal coordination, normal sensation - Musculoskeletal Present: normal gait, normal posture - Psychiatric Present: oriented to time, oriented to person, oriented to place, speech is normal, memory intact Discharge Plan - Patient/Caregiver Discharge Instructions Activity: increase activity as tolerated Diet: Low Fiber Additional Instructions: Patient is to take the pantoprazole and Carafate that she has at home from her last discharge. She also has an appointment for 13 days and will be followed up at that time. - Follow up Plan Follow up with: Heide Elliott MD [Physician] - 04/06/20 2:30 pm Opal Martin MD [Primary Care Provider] - Disposition: Home, Self-Care Prognosis: Good Rehab Potential: Good I certify that the patient requires SNF services.: No Overall status at discharge: patient is progressing back to baseline Pending Studies Resuscitation Status Full Code Diet Full Liquid Diet Start Marisel Mar 23 1637 Sodium Chloride (Sodium Chloride 0.9%) 1,000 mls @ 100 mls/hr IV .Q10H [facility] Last Admin: 03/24/20 07:41 Dose: 100 mls/hr Documented by: DEE DEE Admin: 03/24/20 01:20 Dose: Not Given Documented by: Infusion: 03/23/20 23:46 Dose: 100 mls/hr Documented by: DEE DEE Admin: 03/23/20 13:46 Dose: 100 mls/hr Documented by: DEE DEE Infusion: 03/23/20 13:46 Dose: 100 mls/hr Documented by: DEE DEE Admin: 03/23/20 03:51 Dose: 100 mls/hr Documented by: ZACHARY Metoclopramide HCl (Reglan) 10 mg IV Q6 [facility] Last Admin: 03/24/20 12:32 Dose: 10 mg Documented by: DEE DEE Admin: 03/24/20 05:49 Dose: 10 mg Documented by: Admin: 03/24/20 00:15 Dose: 10 mg Documented by: Admin: 03/23/20 17:24 Dose: 10 mg Documented by: [email or web address] Pantoprazole Sodium (Protonix) 40 mg IV BIDAC [facility] Last Admin: 03/24/20 07:41 Dose: 40 mg Documented by: DEE DEE Admin: 03/23/20 17:20 Dose: 40 mg Documented by: [email or web address] Sucralfate (Carafate) 1 gm PO Q6 [facility] Last Admin: 03/24/20 12:32 Dose: 1 gm Documented by: DEE DEE Admin: 03/24/20 05:49 Dose: 1 gm Documented by: Admin: 03/24/20 00:15 Dose: 1 gm Documented by: Admin: 03/23/20 17:24 Dose: 1 gm Documented by: DEE DEE Shift Summary 03/24/20 02:04 Shift Summary by Kathleen Leung on RA. A&Ox4. Has denied pain tonight. No nausea/vomiting. Full liquid diet. Up to BSC to void, empties ostomy independently. 875cc liquid orange output tonight. IV to L arm is running 0.9% NS at 100mls/hr. [facility]via S [facility] 1940 [id number] 03/23/20 16:15 - Shift Summary by Chet Asif Acct Num: [id number] : 1940 Patient Age: 79 Patient is doing well. Had nothing out her NG following shift change; NG was d/c'd. Was taken to radiology; there is as yet not written report. Patient denies pain or nausea. Ostomy is functioning. Is up to BSC with assistance. Has a potassium rider infusing. She calls appropriately. Initialized on 03/23/20 16:15 - END OF NOTE Initialized on 03/24/20 02:04 - END OF NOTE
[2020-03-24] MEDS ORDERED: PANTOPRAZOLE 40 MG TABLET PO ONE (16:54)
== END 2020-03-24 18:00 | disposition home or self-care (01) | DRG 392 ==
LOC: ED 22:42 → MEDSUR 03-23 02:13
PROVIDERS: ADMIT Family Medicine Adult Medicine; ATTEND Family Medicine Adult Medicine

== ENCOUNTER 2020-05-02 16:09 | Inpatient (IN) ==
[2020-05-02] MEDS ORDERED: 0.9 % SODIUM CHLORIDE 500 ML IV ONE ×2 (17:10→19:01)
--- NOTE | 2020-05-02 17:22 | Emergency Department Note ---
Recheck HPI General Chief Complaint: Recheck/Abnormal Lab/Rx Stated Complaint: pt told to come to ER by Dr. Caicedo for labs Time Seen by Provider: 05/02/20 16:11 Source: patient Mode of arrival: ambulatory Limitations: no limitations History of Present Illness HPI Narrative: This pleasant 80-year-old female comes in with her . 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 Caicedo. I spoke earlier with Dr. Caicedo with suggestion of repeating labs and discussing with him fluids, etc. Patient reports that she has had abdominal discomfort for this past 1 week. She has been recently hospitalized multiple times for small bowel obstruction, etc. some here and some at [facility]. She has an appointment in [address] Caicedo who has told her that her kidneys are operating at 28%. She is uncertain of exact cause. She does have an ileostomy having a history of ulcerative colitis and colectomy. 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 She is not eating very well at all due to nausea since. She denies painful swallowing or dysphasia. She tries to drink 12 to 14 cups or glasses of liquid per day and she has been trying to do this in spite of her nausea. Sometimes this is water sometimes milk and sometimes Gatorade. She reports however she has lost 10 to 12 pounds in the last 3 months. She denies fevers chills or sweats. Related Data Home Medications Medication Instructions Recorded Confirmed fludrocortisone 0.1 mg PO BID 10/01/19 05/02/20 [id number]-[id number]-minerals 1 each PO DAILY 10/01/19 05/02/20 omeprazole 20 mg PO BID 01/13/20 05/02/20 Non Formulary Medication [Pill 1 - 3 each PO PRN PRN 03/06/20 05/02/20 Cutter] amlodipine 2.5 mg PO DAILY 03/06/20 05/02/20 magnesium oxide 400 mg PO DAILY 03/06/20 05/02/20 sodium bicarbonate 1,300 mg PO TID 03/06/20 05/02/20 Previous Rx's Medication Instructions Recorded metoprolol tartrate 12.5 mg PO BID #30 tab 01/15/20 pantoprazole 40 mg PO BIDAC #60 tab 03/22/20 sucralfate 1 gm PO Q6 #120 oral.susp 03/22/20 metoclopramide HCl 10 mg tablet 10 mg PO QACHS #120 tab 03/28/20 Allergies Allergy/AdvReac Type Severity Reaction Status Date / Time No Known Drug Allergies Allergy Verified 05/02/20 16:12 Review of Systems ROS ROS Narrative: Denies chest pain No cough. Mild shortness of breath she attributes to the pain but no air hunger Vomited once but may be was attributed to choking on some food. She continues to have watery ileostomy output. No hematochezia or melena. No dysuria. Some urinary frequency but what is usual for her (no change) No dizziness or lightheadedness Has some anxious feelings and symptoms regarding her abdominal discomforts but not chronic. No chronic depression. [facility] Narrative Patient History Narrative: Denies diabetes, myocardial infarction, peptic ulcer disease, CVA, TIA. Medical/Surgical/Family History All Active Problems (Updated 05/02/20 @ 21:53 by Nasim Hanna DO) Acute hyponatremia (Acute) Abdominal pain, acute, generalized (Acute) Hypomagnesemia (Acute) Elevated lipase (Acute) Chronic renal failure, stage 3 (moderate) (Acute) Hypertension, essential (Acute) Gastroesophageal reflux disease with ulceration (Acute) Hyponatremia (Acute) Chronic renal disease (Acute) Medical History (Updated 05/02/20 @ 21:53 by Nasim Hanna DO) Abdominal pain (Resolved) Acute on chronic renal failure (Inactive) Duodenitis (Inactive) Gastroduodenitis without bleeding (Inactive) Hypokalemia due to excessive gastrointestinal loss of potassium (Inactive) Pancreatitis (Inactive) Partial obstruction of small intestine (Inactive) SBO (small bowel obstruction) (Resolved) Sepsis (Inactive) Small bowel obstruction (Inactive) SBO has largely resolved, patient educated on ostomy dilation with gloved finger, she feels able to perform, should be done monthly or as needed. We d iscussed oral magnesium and ostomy care. Overall she does very well. Small bowel obstruction due to adhesions (Resolved) Small bowel obstruction due to adhesions (Inactive) Uremia of renal origin (Resolved) Urinary tract infection (Inactive) Surgical History (Updated 03/19/20 @ 17:01 by Heide Elliott MD) History of cholecystectomy (Acute) History of hernia repair (Acute) History of ovarian cystectomy (Acute) History of surgery (Acute) revision of ostomy x4 History of total colectomy (Acute) for ulcerative colitis in 1970's History of total hip replacement (Acute) Family History (Updated 03/16/20 @ 09:49 by Lazara Montes De Oca CMA) Other No pertinent family history Social History Smoking Status: Never smoker Alcohol Intake Frequency: holiday/special occasion only Exam Narrative Narrative: Narrative: General Limitations: no limitations General appearance: alert, in no apparent distress and nontoxic Head Head: atraumatic and normocephalic Eye Eye: Present normal appearance, PERRL and EOMI ENT ENT: Present normal oropharynx and mucous membranes moist Neck Neck: Present trachea midline; Absent lymphadenopathy and thyromegaly Chest Chest: Present symmetric chest wall rise Respiratory Respiratory: Present normal lung sounds bilaterally; Absent respiratory distress, rales/crackles, wheezes, stridor, accessory muscle use and prolonged expiratory phase Cardiovascular Cardiovascular: Present regular rate and normal rhythm; Absent systolic murmur and diastolic murmur Adbominal Abdominal: Present soft and tenderness (Mild, diffusely but more in the upper and more on the right.); Absent distention, guarding, rebound, rigidity, organomegaly and mass Extremities Extremities: Absent pedal edema, pretibial edema, calf tenderness and cyanosis Back Back: Absent CVA tenderness (R), CVA tenderness (L) and spinous process tenderness Neurological Neurological: Present alert and oriented X3 Psychiatric Psychiatric: Present normal affect, serious, polite and pleasant; Absent depressed, agitated, anxious and poor eye contact Skin Skin: Present cool and pallor (Mild and diffuse. Palms of her hands are pink.); Absent diaphoretic, cyanosis and mottled Course Vital Signs Vital signs: Vital Signs Temperature 97.5 F 05/02/20 16:10 Pulse Rate 88 05/02/20 16:10 Respiratory Rate 20 05/02/20 16:10 Blood Pressure 149/68 05/02/20 16:10 Pulse Oximetry (%) 100 05/02/20 16:10 Temperature 97.5 F 05/02/20 16:10 Pulse Rate 79 05/02/20 21:32 Respiratory Rate 18 05/02/20 18:53 Blood Pressure 147/75 05/02/20 21:32 Pulse Oximetry (%) 100 05/02/20 21:32 MDM MDM Narrative Medical decision making narrative: 4:45 PM - interviewed and examined. Hyponatremia with some week history of abdominal pain with a history of multiple admissions because of abdominal discomforts and pains and problems. Will repeat labs and discussed with Dr. Caicedo. Will do abdominal plain films. 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 6:29 PM - abdominal x-ray is nonspecific and nonobstructive with no significant interval change. 6:49 PM - patient reports that her stomach is beginning to be more uncomfortable again. She rested for a while quite well. Will give a GI cocktail. 6:51 PM - spoke with Dr. Caicedo. He suggest going ahead with a full liter. Patient has received 500 cc of normal saline. Then drawing a CMP and if it is not correcting consider admission. He agrees with going with ahead with an osmolality on the blood draw already done. 7:39 PM - second 500 cc of normal saline is only skilled nursing in. CMP will be ordered after this is complete. 9:46 PM - patient's second CMP reveals, after a full liter of normal saline, the same sodium at 116. Creatinine is 2.1. I discussed her care with Dr. Amaya, her osmolality, serum, 261. I reviewed medications etc. She will be admitted under his care as hospitalist. Lab Data Result diagrams: 05/02/20 16:50 05/02/20 20:00 Labs: Lab Results 05/02/20 05/02/20 05/02/20 Range/Units 16:50 16:50 16:50 WBC 5.2 (4.50-11.00) K/mcL RBC 3.65 (3.59-5.38) M/mcL Hgb 11.2 (11.2-15.7) g/dL Hct 30.9 L (34.1-44.9) % MCV 84.7 (80.0-100.0) fL MCH 30.7 (26.0-34.0) pg MCHC 36.2 H (31.0-36.0) g/dL RDW 13.0 (11.5-14.5) % Plt Count 278 (140-440) K/mcL MPV 9.3 (7.4-10.4) fL Gran % 57.4 (38.0-78.0) % Lymph % (Auto) 23.0 (15.5-49.0) % Caroline % (Auto) 18.6 H (1.0-12.0) % Eos % (Auto) 0.6 (0.0-7.0) % Baso % (Auto) 0.4 (0.0-2.0) % Gran # 2.97 (1.80-8.00) K/mcL Lymph # (Auto) 1.19 L (1.50-4.80) K/mcL Caroline # (Auto) 0.96 H (0.10-0.90) K/mcL Eos # (Auto) 0.03 (0.00-0.70) K/mcL Baso # (Auto) 0.02 (0.00-0.30) K/mcL Sodium 116 L* (133-145) mmol/L Potassium 4.7 (3.3-5.1) mmol/L Chloride 80 L (96-108) mmol/L Carbon Dioxide 19 L (22-30) mmol/L Anion Gap 17.0 H (8-16) BUN 39 H (8-23) mg/dl Creatinine 2.3 H (0.6-1.1) mg/dl GFR Calculation 19 Glucose 105 (70-105) mg/dL Osmolality (280-300) mOSM/kg Calcium 8.6 (8.6-10.4) mg/dl Magnesium 1.1 L (1.6-2.5) mg/dL Total Bilirubin 0.3 (0.0-1.0) mg/dL AST 35 (0-37) U/l ALT 37 (0-40) U/l Alkaline Phosphatase 106 (39-117) U/L C-Reactive Protein < 0.3 (0.0-0.8) mg/dl Total Protein 7.2 (5.9-8.4) gm/dL Albumin 4.1 (3.2-5.2) gm/dL Globulin 3.1 (2.2-3.7) gm/dL Albumin/Globulin Ratio 1.3 (1.0-2.3) Lipase 224 H (7-60) U/L 05/02/20 05/02/20 Range/Units 16:50 20:00 WBC (4.50-11.00) K/mcL RBC (3.59-5.38) M/mcL Hgb (11.2-15.7) g/dL Hct (34.1-44.9) % MCV (80.0-100.0) fL MCH (26.0-34.0) pg MCHC (31.0-36.0) g/dL RDW (11.5-14.5) % Plt Count (140-440) K/mcL MPV (7.4-10.4) fL Gran % (38.0-78.0) % Lymph % (Auto) (15.5-49.0) % Caroline % (Auto) (1.0-12.0) % Eos % (Auto) (0.0-7.0) % Baso % (Auto) (0.0-2.0) % Gran # (1.80-8.00) K/mcL Lymph # (Auto) (1.50-4.80) K/mcL Caroline # (Auto) (0.10-0.90) K/mcL Eos # (Auto) (0.00-0.70) K/mcL Baso # (Auto) (0.00-0.30) K/mcL Sodium 116 L* (133-145) mmol/L Potassium 4.8 (3.3-5.1) mmol/L Chloride 82 L (96-108) mmol/L Carbon Dioxide 20 L (22-30) mmol/L Anion Gap 14.0 (8-16) BUN 39 H (8-23) mg/dl Creatinine 2.1 H (0.6-1.1) mg/dl GFR Calculation 21 Glucose 94 (70-105) mg/dL Osmolality 261 L (280-300) mOSM/kg Calcium 8.0 L (8.6-10.4) mg/dl Magnesium (1.6-2.5) mg/dL Total Bilirubin 0.4 (0.0-1.0) mg/dL AST 38 H (0-37) U/l ALT 33 (0-40) U/l Alkaline Phosphatase 93 (39-117) U/L C-Reactive Protein (0.0-0.8) mg/dl Total Protein 6.2 (5.9-8.4) gm/dL Albumin 3.7 (3.2-5.2) gm/dL Globulin 2.5 (2.2-3.7) gm/dL Albumin/Globulin Ratio 1.5 (1.0-2.3) Lipase (7-60) U/L Discharge Plan Patient/Caregiver Discharge Instructions Pt seen by PRIME MINISTER/PA only: No Clinical Impression: Acute hyponatremia, Abdominal pain, acute, generalized, Hypomagnesemia, Elevated lipase, Chronic renal failure, stage 3 (moderate), Hypertension, essential Patient Disposition: Xfer As Inpt ([facility]) Follow up with: Opal Martin MD [Primary Care Provider] - Prescriptions: No Action metoclopramide HCl 10 mg tablet 10 mg PO QACHS Qty: 120 RF: 2 vooyzfhcqrbp-Ww-vjcw-minerals 1 EACH tablet 1 each PO DAILY RF: 0 fludrocortisone 0.1 MG tablet 0.1 mg PO BID RF: 0 omeprazole 20 MG capsule 20 mg PO BID RF: 0 metoprolol tartrate 25 MG tablet 12.5 mg PO BID Qty: 30 RF: 0 sodium bicarbonate 650 MG tablet 1,300 mg PO TID RF: 0 amlodipine 5 MG tablet 2.5 mg PO DAILY RF: 0 magnesium oxide 200 MG tablet 400 mg PO DAILY RF: 0 Non Formulary Medication [Pill Cutter] 1 EACH Each 1 - 3 each PO PRN PRN (Reason: Nausea) RF: 0 sucralfate 1 GM/10 ML suspension 1 gm PO Q6 Qty: 120 RF: 3 pantoprazole 40 MG tablet 40 mg PO BIDAC Qty: 60 RF: 3
[2020-05-02 17:38] LABS: Basophils # (Auto) 0.02 K/mcL (0.00-0.30); Basophils % (Auto) 0.4 % (0.0-2.0); Eosinophils # (Auto) 0.03 K/mcL (0.00-0.70); Eosinophils % (Auto) 0.6 % (0.0-7.0); Granulocytes % (Auto) 57.4 % (38.0-78.0); Hematocrit 30.9 % (34.1-44.9); Hemoglobin 11.2 g/dL (11.2-15.7); Lymphocytes # (Auto) 1.19 K/mcL (1.50-4.80); Mean Cell Volume 84.7 fL (80.0-100.0); Mean Corpuscular HGB Conc 36.2 g/dL (31.0-36.0); Mean Platelet Volume 9.3 fL (7.4-10.4); Monocytes # (Auto) 0.96 K/mcL (0.10-0.90); Monocytes % (Auto) 18.6 % (1.0-12.0); Platelet Count 278 K/mcL (140-440); RBC 3.65 M/mcL (3.59-5.38); WBC 5.2 K/mcL (4.50-11.00)
--- NOTE | 2020-05-02 17:57 | XRay Report ---
INDICATION: abdom pain; hx of bowel obstruction, ileostomy TECHNIQUE: Supine and upright abdomen. COMPARISON: Previous examinations dated 03/24/2020 and 03/23/2020 FINDINGS:Multiple surgical clips in the pelvis. There are surgical clips in the right upper quadrant. Patient has undergone previous right total hip arthroplasty. Bowel gas pattern is nonspecific and nonobstructive. There is no pneumoperitoneum. No biliary or portal venous gas. There is no pneumatosis. There is elevation of the right hemidiaphragm, unchanged IMPRESSION: 1. Nonspecific and nonobstructive bowel gas pattern 2. No significant interval change Interpreted and Authenticated by: Chidi Mcgregor 05/02/20
[2020-05-02 17:58] LABS: ALT/SGPT 37 U/l (0-40); AST/SGOT 35 U/l (0-37); Albumin 4.1 gm/dL (3.2-5.2); Alkaline Phosphatase 106 U/L (39-117); Bilirubin,Total 0.3 mg/dL (0.0-1.0); Blood Urea Nitrogen 39 mg/dl (8-23); Calcium 8.6 mg/dl (8.6-10.4); Glomerular Filtration Rate 19; Glucose 105 mg/dL (70-105)
[2020-05-02 17:59] LABS: C-Reactive Protein < 0.3 mg/dl (0.0-0.8)
[2020-05-02 18:23] LABS: Albumin/Globulin Ratio 1.3 (1.0-2.3); Carbon Dioxide 19 mmol/L (22-30); Chloride 80 mmol/L (96-108); Globulin 3.1 gm/dL (2.2-3.7)
[2020-05-02] MEDS ORDERED: PHENobarb/HYOSCY/ATROPINE/SCOP 1 DOSE BOTTLE PO ONE (18:49)
[2020-05-02] MEDS ORDERED: MAGNESIUM SULFATE 2 GM/50 ML BAG IV ONE (19:49)
[2020-05-02 21:16] LABS: ALT/SGPT 33 U/l (0-40); AST/SGOT 38 U/l (0-37); Albumin 3.7 gm/dL (3.2-5.2); Albumin/Globulin Ratio 1.5 (1.0-2.3); Alkaline Phosphatase 93 U/L (39-117); Bilirubin,Total 0.4 mg/dL (0.0-1.0); Blood Urea Nitrogen 39 mg/dl (8-23); Carbon Dioxide 20 mmol/L (22-30); Chloride 82 mmol/L (96-108); Globulin 2.5 gm/dL (2.2-3.7); Glomerular Filtration Rate 21; Glucose 94 mg/dL (70-105)
--- NOTE | 2020-05-02 21:53 | Internal Med History&Physical ---
HPI History of Present Illness Patient information: Note initiated : 05/02/20 at 9:53 pm Service Date, if different from initiated Date: [] Patient: Lesvia Eduardo a 80 y/o F admitted on for pt told to come to ER by Dr. Caicedo for labs. Chief Complaint: Ms. Eduardo is a 79 year old F with history of colostomy , H/o Recc Bowel obstruction, PUD History of present illness: Ms. Eduardo is a 80 year old F history of chronic disease stage IIIb following with Dr. Caicedo/recurrent bowel obstruction/colostomy since 1970 presents to the ER after being directed by nephrology for further evaluation sodium 119. Patient denies excessive ostomy output but carries a history of ulcerative colitis. She has had symptoms of gastroenteritis along with abdominal discomfort over the last week. She endorses losing 10 pounds over the last 3 months. She denies associated fever, chills, shortness of breath, joint pain, rash, dysuria Initial work-up in the ER was unremarkable abdominal imaging. Patient received 500 cc of saline. Elevated creatinine at 2.1/50 percent above baseline. Subsequently hospital service was consulted in light of symptomatic hyponatremia and acute renal failure. At the time evaluation patient is alert and oriented. She denies active distress. She feels weak and fatigued due to progression of her symptoms. Review of systems 10 point review system was performed and is negative except for ones discussed above [facility] Medical History (Updated 05/02/20 @ 21:53 by Nasim Hanna DO) Abdominal pain (Resolved) Acute on chronic renal failure (Inactive) Duodenitis (Inactive) Gastroduodenitis without bleeding (Inactive) Hypokalemia due to excessive gastrointestinal loss of potassium (Inactive) Pancreatitis (Inactive) Partial obstruction of small intestine (Inactive) SBO (small bowel obstruction) (Resolved) Sepsis (Inactive) Small bowel obstruction (Inactive) SBO has largely resolved, patient educated on ostomy dilation with gloved finger, she feels able to perform, should be done monthly or as needed. We discussed oral magnesium and ostomy care. Overall she does very well. Small bowel obstruction due to adhesions (Resolved) Small bowel obstruction due to adhesions (Inactive) Uremia of renal origin (Resolved) Urinary tract infection (Inactive) Surgical History (Updated 03/19/20 @ 17:01 by Heide Elliott MD) History of cholecystectomy (Acute) History of hernia repair (Acute) History of ovarian cystectomy (Acute) History of surgery (Acute) revision of ostomy x4 History of total colectomy (Acute) for ulcerative colitis in 1970's History of total hip replacement (Acute) Family History (Updated 03/16/20 @ 09:49 by Lazara Montes De Oca CMA) Other No pertinent family history Social History (Updated 03/20/20 @ 17:13 by Heide Elliott MD) smoking status: Never smoker alcohol intake frequency: holiday/special occasion only MEDS/ALLERGIES Home Medications and Allergies Home Medications Medication Instructions Recorded Confirmed Type fludrocortisone 0.1 mg PO BID 10/01/19 05/02/20 History babuwndzhfxk-Im-isnm-minerals 1 each PO DAILY 10/01/19 05/02/20 History omeprazole 20 mg PO BID 01/13/20 05/02/20 History metoprolol tartrate 12.5 mg PO BID #30 tab 01/15/20 05/02/20 Rx Non Formulary Medication [Pill 1 - 3 each PO PRN PRN 03/06/20 05/02/20 History Cutter] amlodipine 2.5 mg PO DAILY 03/06/20 05/02/20 History magnesium oxide 400 mg PO DAILY 03/06/20 05/02/20 History sodium bicarbonate 1,300 mg PO TID 03/06/20 05/03/20 History pantoprazole 40 mg PO BIDAC #60 tab 03/22/20 05/02/20 Rx sucralfate 1 gm PO Q6 #120 oral.susp 03/22/20 05/02/20 Rx metoclopramide HCl 10 mg tablet 10 mg PO QACHS #120 tab 03/28/20 05/02/20 Rx Allergies Allergy/AdvReac Type Severity Reaction Status Date / Time No Known Drug Allergies Allergy Verified 05/02/20 23:06 EXAM Constitutional Vitals: Temp Pulse Resp BP Pulse Ox 97.5 F 79 18 147/75 100 05/02/20 16:10 05/02/20 21:32 05/02/20 18:53 05/02/20 21:32 05/02/20 21:32 Alert oriented but fatigued Head normocephalic Oral cavity dry eye movement symmetrical No ear nose discharge Neck no lymphadenopathy S1-S2 occasionally irregular Diminished breath sounds bases Abdomen colostomy in place, minimally tender Colostomy bag Skin no suspicious lesion psych alert, no anxiety No joint swelling erythema Neuro nonfocal DATA Data Completed and Pending Labs on day of discharge: Labs from last 24 hours 05/02/20 05/02/20 05/02/20 21:00 20:00 16:50 WBC RBC Hgb Hct MCV MCH MCHC RDW Plt Count MPV Gran % Lymph % (Auto) [place] % (Auto) Eos % (Auto) Baso % (Auto) Gran # Lymph # (Auto) [place] # (Auto) Eos # (Auto) Baso # (Auto) Sodium 116 L* Potassium 4.8 Chloride 82 L Carbon Dioxide 20 L Anion Gap 14.0 BUN 39 H Creatinine 2.1 H GFR Calculation 21 Glucose 94 Osmolality 261 L Calcium 8.0 L Magnesium Total Bilirubin 0.4 AST 38 H ALT 33 Alkaline Phosphatase 93 C-Reactive Protein Total Protein 6.2 Albumin 3.7 Globulin 2.5 Albumin/Globulin Ratio 1.5 Lipase Urine Osmolality Pending 05/02/20 05/02/20 05/02/20 16:50 16:50 16:50 WBC 5.2 RBC 3.65 Hgb 11.2 Hct 30.9 L MCV 84.7 MCH 30.7 MCHC 36.2 H RDW 13.0 Plt Count 278 MPV 9.3 Gran % 57.4 Lymph % (Auto) 23.0 [place] % (Auto) 18.6 H Eos % (Auto) 0.6 Baso % (Auto) 0.4 Gran # 2.97 Lymph # (Auto) 1.19 L [place] # (Auto) 0.96 H Eos # (Auto) 0.03 Baso # (Auto) 0.02 Sodium 116 L* Potassium 4.7 Chloride 80 L Carbon Dioxide 19 L Anion Gap 17.0 H BUN 39 H Creatinine 2.3 H GFR Calculation 19 Glucose 105 Osmolality Calcium 8.6 Magnesium 1.1 L Total Bilirubin 0.3 AST 35 ALT 37 Alkaline Phosphatase 106 C-Reactive Protein < 0.3 Total Protein 7.2 Albumin 4.1 Globulin 3.1 Albumin/Globulin Ratio 1.3 Lipase 224 H Urine Osmolality A/P Narrative A/P Narrative: * Hypovolemic hyponatremia, Na 116, possibly secondary to solute loss. However r/o SIADH , urine, serum osm, Q4 Na, NS , * NILA on CKD IIIb- Cr elevation > 50% above baseline * HTN restart home medications including amlodipine/metoprolol * Colostomy care * PUD continue PPI/sucralfate * Full code Plan * Inpatient admission * Urine serum osmolarity * Gradual replacement * Pre-existing medical condition management as above * Monitor renal function * PT OT nutrition support * Discharge planning Time Spent With Patient Time: 65 minutes
[2020-05-02] MEDS ORDERED: [UNRECOGNIZED DRUG - OTHER] PO PRN (22:27)
[2020-05-02] MEDS ORDERED: POLYETHYLENE GLYCOL 3350 17 GM PACKET PO PRN (22:27)
[2020-05-02] MEDS ORDERED: ONDANSETRON 4 MG/2 ML VIAL IV PRN (22:27)
[2020-05-02] MEDS ORDERED: MELATONIN 3 MG TABLET PO PRN (22:27)
[2020-05-02] MEDS ORDERED: BISACODYL 10 MG SUPP.RECT PR PRN (22:27)
[2020-05-02] MEDS ORDERED: ONDANSETRON 4 MG ODT TABLET SL PRN (22:27)
[2020-05-02] MEDS ORDERED: hydrALAZINE 20 MG/ML VIAL IV PRN (22:27)
[2020-05-02] MEDS ORDERED: 0.9 % SODIUM CHLORIDE 1,000 ML IV SCH (22:27)
[2020-05-02] MEDS ORDERED: ACETAMINOPHEN 325 MG TABLET PO PRN (22:27)
[2020-05-02] MEDS ORDERED: METOPROLOL TARTRATE 5 MG/5 ML VIAL IV PRN (22:27)
[2020-05-02] MEDS ORDERED: ACETAMINOPHEN 650 MG/65 ML BOTTLE IV PRN (22:27)
[2020-05-02] MEDS: 0.9 % SODIUM CHLORIDE 10 ML SYRINGE IV SCH (22:40)
[2020-05-03] MEDS: SUCRALFATE 1 GM/10 ML ORAL.SUSP PO SCH ×5 (00:10→23:57)
[2020-05-03 05:10] LABS: Hematocrit 28.3 % (34.1-44.9); Mean Cell Volume 85.2 fL (80.0-100.0); Mean Corpuscular HGB Conc 35.3 g/dL (31.0-36.0); Mean Platelet Volume 8.9 fL (7.4-10.4); Platelet Count 214 K/mcL (140-440); RBC 3.32 M/mcL (3.59-5.38); Red Cell Distribution Width 13.1 % (11.5-14.5); WBC 3.8 K/mcL (4.50-11.00)
[2020-05-03] MEDS: 0.9 % SODIUM CHLORIDE 10 ML SYRINGE IV SCH ×3 (05:34→20:18)
[2020-05-03 05:40] LABS: ALT/SGPT 31 U/l (0-40); AST/SGOT 30 U/l (0-37); Albumin 3.5 gm/dL (3.2-5.2); Albumin/Globulin Ratio 1.4 (1.0-2.3); Alkaline Phosphatase 91 U/L (39-117); Bilirubin,Direct < 0.2 mg/dL (0.0-0.3); Bilirubin,Total 0.4 mg/dL (0.0-1.0); Blood Urea Nitrogen 32 mg/dl (8-23); Calcium 8.5 mg/dl (8.6-10.4); Carbon Dioxide 20 mmol/L (22-30); Chloride 92 mmol/L (96-108); Globulin 2.5 gm/dL (2.2-3.7); Glomerular Filtration Rate 30; Glucose 94 mg/dL (70-105); Lactate Dehydrogenase 170 U/L (94-250); Phosphorous 3.2 mg/dL (2.7-4.5); Triglycerides 85 mg/dl (<150); Uric Acid 7.5 mg/dL (2.5-8.0)
[2020-05-03] MEDS: PANTOPRAZOLE 40 MG TABLET PO SCH ×2 (07:04→16:47)
[2020-05-03] MEDS: METOCLOPRAMIDE 10 MG TABLET PO SCH ×5 (07:04→20:17)
[2020-05-03 08:51] LABS: Lymphocytes % 31 % (15-49); Monocytes % (Manual) 8 % (1-12); Platelet Estimate NORMAL (NORMAL); RBC Morphology NORMAL (NORMAL); Segmented Neutrophils % 61 % (38-78)
[2020-05-03] MEDS ORDERED: MULTIVIT,THER IRON,CA,FA & MIN 1 TABLET PO SCH (09:00)
[2020-05-03] MEDS ORDERED: SODIUM BICARBONATE 650 MG TABLET PO SCH (09:00)
[2020-05-03] MEDS ORDERED: OMEPRAZOLE 20 MG CAPSULE PO SCH (09:00)
[2020-05-03] MEDS: DOCUSATE SODIUM 100 MG CAPSULE PO SCH ×2 (09:20→20:17)
[2020-05-03] MEDS: HEPARIN 5,000 UNIT/ML VIAL SQ SCH ×2 (09:25→20:17)
[2020-05-03] MEDS: FLUDROCORTISONE 0.1 MG TABLET PO SCH ×2 (09:25→20:17)
[2020-05-03] MEDS: MULTIVIT,THER IRON,CA,FA & MIN 1 TABLET PO SCH (09:27)
[2020-05-03] MEDS: MAGNESIUM OXIDE 400 MG TABLET PO SCH (09:27)
[2020-05-03] MEDS: METOPROLOL TARTRATE 25 MG TABLET PO SCH ×2 (09:27→20:17)
[2020-05-03] MEDS: amLODIPine 5 MG TABLET PO SCH (09:27)
[2020-05-03] MEDS: SODIUM CHLORIDE 1 GM TABLET PO SCH ×3 (09:27→20:16)
--- NOTE | 2020-05-03 09:54 | Internal Med Progress Note ---
SUBJECTIVE Subjective Patient information: Note initiated : 05/03/20 at 9:50 am Service Date, if different from initiated Date: [] Patient: Lesvia Eduardo 80 y/o F admitted on 05/02/20 for pt told to come to ER by Dr. Caicedo for labs Ms. Eduardo is a 79 year old F with history of colostomy , H/o Recc Bowel obstruction, PUD History of present illness: Ms. Eduardo is a 80 year old F history of chronic disease stage IIIb following with Dr. Caicedo/recurrent bowel obstruction/colostomy since 1970 presents to the ER after being directed by nephrology for further evaluation sodium 119. Patient denies excessive ostomy output but carries a history of ulcerative colitis. She has had symptoms of gastroenteritis along with abdominal discomfort over the last week. She endorses losing 10 pounds over the last 3 months. She denies associated fever, chills, shortness of breath, joint pain, rash, dysuria Initial work-up in the ER was unremarkable abdominal imaging. Patient received 500 cc of saline. Elevated creatinine at 2.1/50 percent above baseline. Subsequently hospital service was consulted in light of symptomatic hyponatremia and acute renal failure. At the time evaluation patient is alert and oriented. She denies active distress. She feels weak and fatigued due to progression of her symptoms. 05/03-patient doing well. Sodium improved to 122 from 116. Potassium 3.8. Creatinine down from 2.1-1.6. Tolerating diet. Denies any abdominal discomfort. No telemetry events. Feeling a lot better. Urine osmolarity consistent with hyponatremia induced hypoosmolar urine. No evidence of ascites. Continue salt tabs/crystalloids. No significant ostomy output. Restarted on home medication including antihypertensives. Anticipated discharge in 24 hours pending sodium improvement. Continue regular diet Interval history: Narrative: Constitutional Vitals: Vital Signs Temp Pulse Resp BP Pulse Ox 98.9 F 97 H 21 145/71 100 05/03/20 08:21 05/03/20 08:21 05/03/20 08:21 05/03/20 08:21 05/03/20 08:21 Period Temp Pulse Resp BP Sys/Fernandez Pulse Ox Last 24 Hr 97.1 F-98.9 F 71-97 13-26 127-155/62-80 96-100 Intake and Output 05/02/20 05/03/20 05/03/20 21:59 05:59 13:59 Intake Total 1050 493 Output Total 1300 175 Balance 1050 -1300 318 Weight 56.245 kg 56.2 kg alert and oriented Nonlabored breathing No telemetry events No anxiety Intake & Output: Intake & Output 05/02/20 05/03/20 05/03/20 21:59 05:59 13:59 Intake Total 1050 493 Output Total 1300 175 Balance 1050 -1300 318 Weight 56.245 kg 56.2 kg Intake: IV 1050 493 Sodium Chloride 0.9% 1,000 ml @ 493 50 mls/hr IV .Q20H ROMEO Rx#: [id number] Sodium Chloride 0.9% 500 ml @ 1000 Wide Open IV BOLUS ONE Rx#: [id number] Output: Void Amount 650 Urine/Stool Mix 350 Stool 300 175 Other: Meal Breakfast Percent of Meal Consumed 100% Urine Appearance Clear Urine Color Pale Stool Color Yellow Stool Consistency Liquid # Bowel Movements 0 OBJ DATA Labs CBC & Chem 7: 05/03/20 04:27 05/03/20 08:08 Labs: Abnormal Lab Results 05/03/20 05/03/20 05/03/20 08:08 04:27 04:27 WBC 3.8 L RBC 3.32 L Hgb 10.0 L Hct 28.3 L MCHC [place] % (Auto) Lymph # (Auto) [place] # (Auto) Sodium 122 L 124 L Chloride 92 L Carbon Dioxide 20 L Anion Gap BUN 32 H Creatinine 1.6 H Osmolality Calcium 8.5 L Magnesium GGT 94 H AST Lipase 05/03/20 05/02/20 05/02/20 00:09 20:00 16:50 WBC RBC Hgb Hct MCHC [place] % (Auto) Lymph # (Auto) [place] # (Auto) Sodium 120 L 116 L* Chloride 82 L Carbon Dioxide 20 L Anion Gap BUN 39 H Creatinine 2.1 H Osmolality 261 L Calcium 8.0 L Magnesium GGT AST 38 H Lipase 05/02/20 05/02/20 05/02/20 16:50 16:50 16:50 WBC RBC Hgb Hct 30.9 L MCHC 36.2 H [place] % (Auto) 18.6 H Lymph # (Auto) 1.19 L [place] # (Auto) 0.96 H Sodium 116 L* Chloride 80 L Carbon Dioxide 19 L Anion Gap 17.0 H BUN 39 H Creatinine 2.3 H Osmolality Calcium Magnesium 1.1 L GGT AST Lipase 224 H Meds: Medications Acetaminophen (Tylenol) 650 mg PO Q4-6HP PRN; Protocol PRN Reason: Per Pain Protocol/Fever > 101 Last Admin: 05/03/20 07:02 Dose: 650 mg Documented by: Amlodipine Besylate (Norvasc) 2.5 mg PO DAILY [facility] Last Admin: 05/03/20 09:27 Dose: 2.5 mg Documented by: Bisacodyl (Dulcolax) 10 mg NV Q2-3DAYS PRN PRN Reason: Constipation Docusate Sodium (Colace) 100 mg PO BID [facility] Last Admin: 05/03/20 09:20 Dose: Not Given Documented by: Fludrocortisone Acetate (Florinef) 0.1 mg PO BID [facility] Last Admin: 05/03/20 09:25 Dose: 0.1 mg Documented by: Heparin Sodium (Porcine) (Heparin) 5,000 unit SQ Q12 [facility] Last Admin: 05/03/20 09:25 Dose: 5,000 unit Documented by: Hydralazine HCl (Apresoline) 10 mg IV Q4-6HP PRN PRN Reason: Hypertension Acetaminophen (Ofirmev) 650 mg in 65 mls @ 130 mls/hr IV Q6HP PRN; Protocol PRN Reason: Per Pain Protocol/Fever > 101 Iron Carb/Multivit/[place]/Folic Acid (Multivitamin W/Minerals) 1 tab PO DAILY [facility] Last Admin: 05/03/20 09:27 Dose: 1 tab Documented by: Magnesium Oxide (Magnesium Oxide) 400 mg PO DAILY [facility] Last Admin: 05/03/20 09:27 Dose: 400 mg Documented by: Melatonin (Melatonin 3mg Tablet) 3 mg PO HSP PRN PRN Reason: Insomnia Metoclopramide HCl (Reglan) 10 mg PO ACHS [facility] Last Admin: 05/03/20 09:14 Dose: Not Given Documented by: Metoprolol Tartrate (Lopressor) 12.5 mg PO BID [facility] Last Admin: 05/03/20 09:27 Dose: 12.5 mg Documented by: Metoprolol Tartrate (Lopressor) 5 mg IV Q5M PRN PRN Reason: Heart Rate > 140 bpm Ondansetron HCl (Zofran Odt) 4 mg SL Q4-6HP PRN; Protocol PRN Reason: Nausea And Vomiting Ondansetron HCl (Zofran) 4 mg IV Q4-6HP PRN; Protocol PRN Reason: Nausea And Vomiting Pantoprazole Sodium (Protonix) 40 mg PO BIDAC [facility] Last Admin: 05/03/20 07:04 Dose: 40 mg Documented by: Polyethylene Glycol (Miralax) 17 gm PO DAILYP PRN PRN Reason: Constipation Senna/Docusate Sodium (Senna Plus Tablet) 1 tab PO HS [facility] Sodium Chloride (Saline Flush) 10 ml IV Q8 [facility] Last Admin: 05/03/20 05:34 Dose: Not Given Documented by: Sodium Chloride (Sodium Chloride) 2 gm PO TID [facility] Last Admin: 05/03/20 09:27 Dose: 2 gm Documented by: Sucralfate (Carafate) 1 gm PO Q6 [facility] Last Admin: 05/03/20 05:34 Dose: 1 gm Documented by: A/P Narrative A/P Narrative: * Hypovolemic hyponatremia, Na improved to 122 from 116, secondary to solute loss. No evidence of SIADH based on urine osmolality. Continue salt tabs/regular salt diet * NILA on CKD IIIb-improving with crystalloids. Creatinine down to 1.6 from 2.1. * HTN continue home medications including amlodipine/metoprolol * Colostomy care * PUD continue PPI/sucralfate * Full code Plan * Continue salt tabs/regular salt diet * Pre-existing medical condition management as above * Monitor renal function and avoid nephrotoxins * PT OT nutrition support * Discharge planning possibly in 24 hours pending sodium improvement Time Spent With Patient Time: Total time spent is greater than 50% in coordination of care (as documented) at patient's floor/unit and/or counseling patient: 35 minutes QUALITY VTE Deep Vein Thrombosis/Pulmonary Embolism Present on Admission: No
[2020-05-03] MEDS ORDERED: SENNOSIDES/DOCUSATE SODIUM 1 TAB TABLET PO SCH (21:00)
[2020-05-04] MEDS: SUCRALFATE 1 GM/10 ML ORAL.SUSP PO SCH (05:37)
[2020-05-04] MEDS: 0.9 % SODIUM CHLORIDE 10 ML SYRINGE IV SCH (05:37)
[2020-05-04 06:31] LABS: Hematocrit 28.9 % (34.1-44.9); Mean Cell Volume 86.8 fL (80.0-100.0); Mean Corpuscular HGB Conc 34.6 g/dL (31.0-36.0); Mean Platelet Volume 9.1 fL (7.4-10.4); Platelet Count 210 K/mcL (140-440); RBC 3.33 M/mcL (3.59-5.38); Red Cell Distribution Width 13.3 % (11.5-14.5); WBC 3.7 K/mcL (4.50-11.00)
[2020-05-04 06:57] LABS: ALT/SGPT 28 U/l (0-40); AST/SGOT 25 U/l (0-37); Albumin 3.5 gm/dL (3.2-5.2); Albumin/Globulin Ratio 1.6 (1.0-2.3); Alkaline Phosphatase 87 U/L (39-117); Bilirubin,Direct < 0.2 mg/dL (0.0-0.3); Bilirubin,Total 0.4 mg/dL (0.0-1.0); Blood Urea Nitrogen 26 mg/dl (8-23); Carbon Dioxide 17 mmol/L (22-30); Chloride 96 mmol/L (96-108); Globulin 2.2 gm/dL (2.2-3.7); Glomerular Filtration Rate 32; Glucose 83 mg/dL (70-105); Lactate Dehydrogenase 164 U/L (94-250); Phosphorous 2.9 mg/dL (2.7-4.5); Triglycerides 59 mg/dl (<150); Uric Acid 7.3 mg/dL (2.5-8.0)
[2020-05-04] MEDS: PANTOPRAZOLE 40 MG TABLET PO SCH (07:21)
[2020-05-04] MEDS: METOCLOPRAMIDE 10 MG TABLET PO SCH (07:21)
[2020-05-04 08:23] LABS: Anisocytosis 1+ (NONE SEEN); Band Neutrophils % 1 % (0-10); Eosinophils % (Manual) 1 % (0-7); Lymphocytes % 23 % (15-49); Monocytes % (Manual) 13 % (1-12); Platelet Estimate NORMAL (NORMAL); RBC Morphology ABNORM (NORMAL); Segmented Neutrophils % 62 % (38-78)
[2020-05-04] MEDS ORDERED: MAGNESIUM SULFATE 2 GM/50 ML BAG IV ONE (08:58)
[2020-05-04] MEDS: MULTIVIT,THER IRON,CA,FA & MIN 1 TABLET PO SCH (09:02)
[2020-05-04] MEDS: METOPROLOL TARTRATE 25 MG TABLET PO SCH (09:02)
[2020-05-04] MEDS: amLODIPine 5 MG TABLET PO SCH (09:02)
[2020-05-04] MEDS: MAGNESIUM OXIDE 400 MG TABLET PO SCH (09:02)
[2020-05-04] MEDS: FLUDROCORTISONE 0.1 MG TABLET PO SCH (09:02)
[2020-05-04] MEDS: HEPARIN 5,000 UNIT/ML VIAL SQ SCH (09:03)
[2020-05-04] MEDS: SODIUM CHLORIDE 1 GM TABLET PO SCH (09:30)
--- NOTE | 2020-05-04 10:09 | Discharge Summary ---
Discharge Provider Provider Patient information: Note initiated : 05/04/20 at 10:05 am Service Date, if different from initiated Date: [] Patient: Lesvia Eduardo 80 y/o F admitted on 05/02/20 for pt told to come to ER by Dr. Caicedo for labs. Chief Complaint: [] Date of admission: 05/02/20 22:25 Discharge date: 05/04/20 Primary care physician: Opal Martin Consults: 05/02/20 Consult to Physician [CONS] Stat Comment: Consulting Provider: Alvaro Lee Reason For Exam: Physician to Consult 05/02/20 22:27 Consult to Physician [CONS] Routine Comment: Consulting Provider: Loki Caicedo Reason For Exam: Physician to Consult Discharge Meds Discharge Medications Home Medications fludrocortisone 0.1 mg PO BID 10/01/19 [History Confirmed 05/02/20 Last Taken 05/02/20 08:00] fiwdxiqcbcac-Oo-lbtf-minerals 1 each PO DAILY 10/01/19 [History Confirmed 05/02/20 Last Taken 05/02/20 08:00] omeprazole 20 mg PO BID 01/13/20 [History Confirmed 05/02/20 Last Taken 05/02/20 08:00] metoprolol tartrate 12.5 mg PO BID #30 tab 01/15/20 [Rx Confirmed 05/02/20 Last Taken 05/02/20 08:00] Non Formulary Medication [Pill Cutter] 1 - 3 each PO PRN PRN 03/06/20 [History Confirmed 05/02/20 Last Taken 05/02/20 08:00] amlodipine 2.5 mg PO DAILY 03/06/20 [History Confirmed 05/02/20 Last Taken 05/02/20 08:00] magnesium oxide 400 mg PO DAILY 03/06/20 [History Confirmed 05/02/20 Last Taken 05/02/20 08:00] sodium bicarbonate 1,300 mg PO TID 03/06/20 [History Confirmed 05/03/20 Last Taken 05/02/20 08:00] pantoprazole 40 mg PO BIDAC #60 tab 03/22/20 [Rx Confirmed 05/02/20 Last Taken 05/02/20 08:00] sucralfate 1 gm PO Q6 #120 oral.susp 03/22/20 [Rx Confirmed 05/02/20 Last Taken 03/22/20 12:00] metoclopramide HCl 10 mg tablet 10 mg PO QACHS #120 tab 03/28/20 [Rx Confirmed 05/02/20 Last Taken 05/02/20 08:00] sodium chloride 2 gm PO TID #90 tab 05/04/20 [Rx Last Taken Unknown] COURSE Hospital Course Hospital Course: Discharge diagnosis Hypovolemic hyponatremia, Na improved to 124 from 116, secondary to solute loss. No evidence of SIADH based on urine osmolality. Continue salt tabs/regular salt diet. Discharge home today NILA on CKD IIIb-improving with crystalloids. Creatinine down to baseline 1.5 from 2.1. HTN continue home medications including amlodipine/metoprolol Colostomy care PUD continue PPI/sucralfate Brief hospital course History of present illness: Ms. Eduardo is a 80 year old F history of chronic disease stage IIIb following with Dr. Caicedo/recurrent bowel obstruction/colostomy since 1970 presents to the ER after being directed by nephrology for further evaluation sodium 119. Patient denies excessive ostomy output but carries a history of ulcerative colitis. She has had symptoms of gastroenteritis along with abdominal discomfort over the last week. She endorses losing 10 pounds over the last 3 months. She denies associated fever, chills, shortness of breath, joint pain, rash, dysuria Initial work-up in the ER was unremarkable abdominal imaging. Patient received 500 cc of saline. Elevated creatinine at 2.1/50 percent above baseline. Subsequently hospital service was consulted in light of symptomatic hyponatremia and acute renal failure. At the time evaluation patient is alert and oriented. She denies active distress. She feels weak and fatigued due to progression of her symptoms. 05/03-patient doing well. Sodium improved to 122 from 116. Potassium 3.8. Creatinine down from 2.1-1.6. Tolerating diet. Denies any abdominal discomfort. No telemetry events. Feeling a lot better. Urine osmolarity consistent with hyponatremia induced hypoosmolar urine. No evidence of ascites. Continue salt tabs/crystalloids. No significant ostomy output. Restarted on home medication including antihypertensives. Anticipated discharge in 24 hours pending sodium improvement. Continue regular diet 05/04-improved sodium from 1 16->1 24. Continue regular salt diet/sodium chloride tablets. Discharging home with advised to continue. Creatinine down from 2.1-1.5(previous baseline) Discharging with advised to continue follow-up with primary care physician Discharge diagnosis: . Time Spent with Patient Time attestation: Total time spent providing and/or coordinating discharge s ervices: EXAM Constitutional Vitals: Temp Pulse Resp BP Pulse Ox 98.4 F 73 15 140/64 100 05/04/20 06:01 05/04/20 02:00 05/04/20 06:01 05/04/20 06:01 05/04/20 04:01 Discharge Data Data Completed and Pending Labs on day of discharge: Labs from last 24 hours 05/04/20 05/04/20 05/03/20 05:04 05:04 20:00 WBC 3.7 L RBC 3.33 L Hgb 10.0 L Hct 28.9 L MCV 86.8 MCH 30.0 MCHC 34.6 RDW 13.3 Plt Count 210 MPV 9.1 Total Counted 100 Seg Neutrophils % 62 Band Neutrophils % 1 Lymphocytes % 23 Monocytes % (Manual) 13 H Eosinophils % (Manual) 1 Platelet Estimate Normal RBC Morphology Abnorm A Anisocytosis 1+ A Sodium 124 L 122 L Potassium 4.4 Chloride 96 Carbon Dioxide 17 L Anion Gap 11.0 BUN 26 H Creatinine 1.5 H GFR Calculation 32 Glucose 83 Uric Acid 7.3 Calcium 9.0 Phosphorus 2.9 Magnesium 1.6 Total Bilirubin 0.4 Direct Bilirubin < 0.2 GGT 99 H AST 25 ALT 28 Alkaline Phosphatase 87 Lactate Dehydrogenase 164 Total Protein 5.7 L Albumin 3.5 Globulin 2.2 Albumin/Globulin Ratio 1.6 Triglycerides 59 05/03/20 05/03/20 16:26 12:18 WBC RBC Hgb Hct MCV MCH MCHC RDW Plt Count MPV Total Counted Seg Neutrophils % Band Neutrophils % Lymphocytes % Monocytes % (Manual) Eosinophils % (Manual) Platelet Estimate RBC Morphology Anisocytosis Sodium 125 L 125 L Potassium Chloride Carbon Dioxide Anion Gap BUN Creatinine GFR Calculation Glucose Uric Acid Calcium Phosphorus Magnesium Total Bilirubin Direct Bilirubin GGT AST ALT Alkaline Phosphatase Lactate Dehydrogenase Total Protein Albumin Globulin Albumin/Globulin Ratio Triglycerides Discharge Plan Patient/Caregiver Discharge Instructions Activity: increase activity as tolerated Diet: Regular Diet Instructions: Sodium Chloride (By mouth), Chronic Kidney Disease (GEN), Hyponatremia (GEN) Activity Restrictions/Additional Instructions: * Follow-up PCP in 5 to 7 days * Return to ER if worsening weakness nausea vomiting * Follow-up with nephrology for management of chronic disease * Continue salt tabs 3 times a day with regular salt diet This discharge packet is provided to you to help keep you informed about your care. We want to ensure you get everything you need when you go home. You will also be receiving a call from us in a few days to follow up with you and see how you are doing since your discharge. This gives us a chance to listen to any concerns you maybe experiencing since you were discharged or any additional needs you may have, as well as providing us feedback on your care experience. We strive to always provide excellent care and thank you for your feedback and for choosing [facility]. Prescriptions: New sodium chloride 1 gram Tablet 2 gm PO TID Qty: 90 RF: 0 Continued metoclopramide HCl 10 mg tablet 10 mg PO QACHS Qty: 120 RF: 2 jnejbaitghww-Hh-sdqn-minerals 1 EACH tablet 1 each PO DAILY RF: 0 fludrocortisone 0.1 MG tablet 0.1 mg PO BID RF: 0 omeprazole 20 MG capsule 20 mg PO BID RF: 0 metoprolol tartrate 25 MG tablet 12.5 mg PO BID Qty: 30 RF: 0 sodium bicarbonate 650 MG tablet 1,300 mg PO TID RF: 0 amlodipine 5 MG tablet 2.5 mg PO DAILY RF: 0 magnesium oxide 200 MG tablet 400 mg PO DAILY RF: 0 Non Formulary Medication [Pill Cutter] 1 EACH Each 1 - 3 each PO PRN PRN (Reason: Nausea) RF: 0 sucralfate 1 GM/10 ML suspension 1 gm PO Q6 Qty: 120 RF: 3 pantoprazole 40 MG tablet 40 mg PO BIDAC Qty: 60 RF: 3 Follow Up Plan Follow up with: Opal Martin MD [Primary Care Provider] - 05/09/20 3:40 pm (Please arrive 15 minutes early) Patient Disposition: Home, Self-Care Hospital Course: Discharge diagnosis Hypovolemic hyponatremia, Na improved to 124 from 116, secondary to solute loss. No evidence of SIADH based on urine osmolality. Continue salt tabs/regular salt diet. Discharge home today NILA on CKD IIIb-improving with crystalloids. Creatinine down to baseline 1.5 from 2.1. HTN continue home medications including amlodipine/metoprolol Colostomy care PUD continue PPI/sucralfate Brief hospital course History of present illness: Ms. Eduardo is a 80 year old F history of chronic disease stage IIIb following with Dr. Caicedo/recurrent bowel obstruction/colostomy since 1970 presents to the ER after being directed by nephrology for further evaluation sodium 119. Patient denies excessive ostomy output but carries a history of ulcerative colitis. She has had symptoms of gastroenteritis along with abdominal discomfort over the last week. She endorses losing 10 pounds over the last 3 months. She denies associated fever, chills, shortness of breath, joint pain, rash, dysuria Initial work-up in the ER was unremarkable abdominal imaging. Patient received 500 cc of saline. Elevated creatinine at 2.1/50 percent above baseline. Subsequently hospital service was consulted in light of symptomatic hyponatremia and acute renal failure. At the time evaluation patient is alert and oriented. She denies active distress. She feels weak and fatigued due to progression of her symptoms. 05/03-patient doing well. Sodium improved to 122 from 116. Potassium 3.8. Creatinine down from 2.1-1.6. Tolerating diet. Denies any abdominal discomfort. No telemetry events. Feeling a lot better. Urine osmolarity consistent with hyponatremia induced hypoosmolar urine. No evidence of ascites. Continue salt tabs/crystalloids. No significant ostomy output. Restarted on home medication including antihypertensives. Anticipated discharge in 24 hours pending sodium improvement. Continue regular diet 05/04-improved sodium from 16->1 24. Continue regular salt diet/sodium chloride tablets. Discharging home with advised to continue. Creatinine down from 2.1-1.5(previous baseline) Discharging with advised to continue follow-up with primary care physician Overall status at discharge: patient is progressing back to baseline Discharge Orders: Discharge Order (Routine); Ordered 05/04/20 Ordered By: Alvaro ORNELAS VTE Deep Vein Thrombosis/Pulmonary Embolism Present on Admission: No
[2020-05-04] MEDS ORDERED: METOCLOPRAMIDE 10 MG TABLET PO SCH (11:30)
== END 2020-05-04 11:20 | disposition home or self-care (01) | DRG 641 ==
LOC: ED 16:09 → ICU 22:25
PROVIDERS: ADMIT Internal Medicine; ATTEND Internal Medicine